=== PATIENT | female | born 1955 | race Two or more races ===

== ENCOUNTER 2020-01-24 06:29 | Outpatient (REF) | payer OTHER, SELFPAY ==
[2020-01-24 08:19] LABS: Alanine Aminotransferase 14 U/L (0-31); Albumin Level 4.1 g/dL (3.5-5.0); Alkaline Phosphatase 65 U/L (39-117); Anion Gap 12 (12-20); Aspartate Amino Transferase 15 U/L (5-31); Bilirubin Total 0.5 mg/dL (0.0-1.0); Blood Urea Nitrogen 12 mg/dL (9-16); Calcium 8.7 mg/dL (8.4-10.2); Carbon Dioxide 28 mmol/L (22-29); Chloride 106 mmol/L (96-108); Cholesterol 214 mg/dL; Estimated Glomerular Filt Rate > 60; Glucose Fasting 83 mg/dL (60-99); HDL Cholesterol 62 mg/dL; LDL Cholesterol Calculated 119 mg/dl; Potassium 4.2 mmol/l (3.3-5.1); Sodium 142 mmol/L (135-145); Total Protein 6.7 g/dL (6.5-8.0); Triglycerides 168 mg/dL
== END 2020-01-24 06:30 | disposition home or self-care (01) ==
LOC: HO.LAB 06:29
PROVIDERS: Visit Provider Internal Medicine
DX: Z82.49 Family history of ischemic heart disease and other diseases of the circulatory system (principal); M54.5 Low back pain
CPT/HCPCS: 80053; 80061; 99202

== ENCOUNTER → 2020-03-03 08:16 | Outpatient (BNVA) | payer SELFPAY | PROVIDERS: Visit Provider Internal Medicine Gastroenterology | DX: Z76.89 Persons encountering health services in other specified circumstances (principal) ==

== ENCOUNTER → 2020-04-12 13:37 | Outpatient (BNVA) | payer OTHER, SELFPAY | PROVIDERS: PCP Internal Medicine; Visit Provider Surgery | DX: K60.1 Chronic anal fissure (principal) | CPT/HCPCS: 99202 ==

== ENCOUNTER 2020-04-24 07:58 | Day surgery (SDC) | payer OTHER, SELFPAY ==
[2020-04-17 15:52] VITALS: BMI 25.6
--- NOTE | 2020-04-21 09:53 | HO.ANESPROP2 ---
Documented by User: Johana Edwards 04/21/20 09:54 HPI - Anesthesia Eval Consult details Narrative: 64yo F for Lateral Internal Sphincterotomy PMFSH Past Medical History Medical History Family history of hypertension GERD (gastroesophageal reflux disease) High cholesterol Low back pain Family History Family History Father Diabetes Hypertension Mother Hypertension Diabetes Lung cancer Skin cancer Paternal Aunt Stroke Surgical History Surgical History History of esophagogastroduodenoscopy History of hemorrhoidectomy History of removal of cyst History of surgery History of tubal ligation Social History Social History Alcohol intake: current Alcohol intake frequency: a few times a week Alcohol type: wine Smoking Status: Former smoker Tobacco Type: Cigarette Smoking Quit Date: 2000 Use of substances other than those prescribed or required for medical reasons: No Advance Directives: No Advance Directives Information Provided: No Advance Directives on File: No Recently lost weight without trying: No Meds Allergies Allergy/AdvReac Type Severity Reaction Status Date / Time oxycodone [From PERCOCET] Allergy Intermediate DIFF Verified 04/12/20 14:07 BREATHING acetaminophen [Percocet] Allergy Unknown anxiety, Verified 04/12/20 14:07 SOB Home Medications Medication Instructions Recorded Confirmed Type cromolyn 4 % eye drops 1 drp OPHTHALMIC (EYE) QID 04/12/20 04/17/20 History pantoprazole 1 tab PO DAILY 04/17/20 04/17/20 History Exam Exam Date and Time: April 21, 2020 0953 Height,Weight and Vital Signs: Height 4 ft 11 in Weight 57.606 kg Pertinent Lab Results Pertinent Lab Results: Laboratory Tests 01/24/20 06:44 Sodium 142 Potassium 4.2 Chloride 106 Carbon Dioxide 28 BUN 12 Creatinine 0.63 Assessment and Plan Assessment Anesthesia Assessment: Chart Reviewed Documented by User: Lesley Mosqueda 04/24/20 09:40 [facility] Past Medical History Medical History Family history of hypertension GERD (gastroesophageal reflux disease) High cholesterol Low back pain Family History Family History Father Diabetes Hypertension Mother Hypertension Diabetes Lung cancer Skin cancer Paternal Aunt Stroke Family history of problems with anesthesia: No Surgical History Surgical History History of esophagogastroduodenoscopy History of hemorrhoidectomy History of removal of cyst History of surgery History of tubal ligation History of Problems with Anesthesia: No Social History Social History Alcohol intake: current Alcohol intake frequency: a few times a week Alcohol type: wine Smoking Status: Former smoker Tobacco Type: Cigarette Smoking Quit Date: 2000 Use of substances other than those prescribed or required for medical reasons: No Advance Directives: No Advance Directives Information Provided: No Advance Directives on File: No Recently lost weight without trying: No Meds Allergies Allergy/AdvReac Type Severity Reaction Status Date / Time oxycodone [From PERCOCET] Allergy Intermediate DIFF Verified 04/12/20 14:07 BREATHING acetaminophen [Percocet] Allergy Unknown anxiety, Verified 04/12/20 14:07 SOB Home Medications Medication Instructions Recorded Confirmed Type cromolyn 4 % eye drops 1 drp OPHTHALMIC (EYE) QID 04/12/20 04/17/20 History pantoprazole 1 tab PO DAILY 04/17/20 04/17/20 History Exam Height,Weight and Vital Signs: Vital Signs Temp Pulse Resp BP Pulse Ox 04/24/20 08:33 98.0 F 93 16 139/95 H 99 Airway Mallampati Class: I TM Dist: >3cm Neck ROM: Full Loose/Missing/Broken Teeth: Yes (Extracted) Heart: RRR Lungs: CTAB Assessment and Plan Assessment Anesthesia Assessment: Anesthesia Plan Discussed and Chart Reviewed Final Anesthetic Review NPO: Yes ASA Class: II Final Preanesthetic Review: No Changes in Pt Med Stat, Meds/Allgs Chart Reviewed, Consent Obtained/Reviewed and Anes Risks/Benef Reviewed Patient Risk: Low Procedure Risk: Low Assessment/Block/Sedation in SS: Assess/Block/Sedation-SS Anesthetic Plan Anesthetic Plan: GA Disposition: Standard PACU
[2020-04-24] VITALS (7 sets, daily range): BP systolic 127–157; BP diastolic 69–95; PULSE 74–96; RESP 14–20; TEMP 36.3–36.7; O2SAT 94–99
[2020-04-24] MEDS: Lactated Ringers 1,000 ML 100 ML IVCONT (08:54)
--- NOTE | 2020-04-24 10:25 | PM.OP ---
Brief Operative Note Date of Service: 04/24/20 Pre-op diagnosis: Anal fissure Post-op diagnosis: same Procedure: Lateral internal sphincterotomy Implants: none Surgeon: Amauri Baiely MD Anesthesia: GLMA Estimated blood loss (mL): 5 Pathology: none sent Condition: stable Disposition: PACU
--- NOTE | 2020-04-24 10:25 | W.PM.OPN ---
Operative Note Operative Note Date of Service: 04/24/20 Narrative: Preoperative diagnosis: Anal fissure Postoperative diagnosis: Same Procedure: Lateral internal sphincterotomy Surgeon: Amauri Bailey MD Anesthesia: General LMA Indications for procedure: This 64-year-old female presenting with complaints of anal pain and bleeding for prolonged period of time found on examination to have evidence of an anal fissure with hypertrophy of the internal anal sphincter. She presents now for a lateral internal sphincterotomy. 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 No internal hemorrhoids were identified. Specimen: None Estimated blood loss: 5 mL Complications: None Procedure details: Patient was brought to the OR and placed in a supine position. After administering general anesthesia she was placed in a lithotomy position. The perianal skin was prepped with Betadine and draped in a sterile fashion. A surgical time-out was called and the consent confirmed. Patient received preoperative antibiotics and Venodyne boots were in place. Local anesthesia consisting of 0.25% Sensorcaine with epinephrine was then infiltrated around the perianal skin. Incision was then made on the left lateral anal wall. Hemostasis was assured using electrocautery. A hemostat was then used to dissect down to the internal anal sphincter. And brought up through the incision and divided using electrocautery. Additional fragment of the sphincter was brought up again through the incision and divided. Hemostasis again assured using the cautery and light pressure the wounds were then dressed with Surgicel followed by an anal packing consisting of Xeroform right around a old 4 x 4 gauze. Followed by an ABD pad. Patient tolerated the procedure well. Sponge, instrument, and needle counts reported as correct. Patient was transferred to PACU in stable condition.
--- NOTE | 2020-04-24 11:35 | HO.POSTANES ---
Post Anesthesia Evaluation Post Anesthesia Evaluation Vital Signs: Vital Signs Temp Pulse Resp BP Pulse Ox 04/24/20 10:40 97.3 F 83 16 129/69 95 04/24/20 10:35 85 16 137/70 94 04/24/20 10:30 96 16 143/78 H 94 04/24/20 10:25 97.3 F 91 14 157/84 H 97 04/24/20 08:33 98.0 F 93 16 139/95 H 99 Anesthesia: General LMA Mental Status: Awake Pain Control: Satisfactory Nausea/Vomiting: None Hydration: Adequate Anesthesia-Related Issues: No Anes. Related Issues
== END 2020-04-24 11:49 | disposition home or self-care (01) ==
PROVIDERS: PCP Internal Medicine; Visit Provider Surgery
PROC: (CPT 46200; principal; 2020-04-24 09:50)
DX: K60.1 Chronic anal fissure (principal); K21.9 Gastro-esophageal reflux disease without esophagitis; E78.00 Pure hypercholesterolemia, unspecified; Z87.891 Personal history of nicotine dependence; Z79.899 Other long term (current) drug therapy; Z88.8 Allergy status to other drugs, medicaments and biological substances
CPT/HCPCS: 46200; J1100; J2250; J2405; J3010

== ENCOUNTER → 2020-05-04 14:29 | Outpatient (BNVA) | payer OTHER, SELFPAY | PROVIDERS: PCP Internal Medicine; Visit Provider Surgery | DX: K60.1 Chronic anal fissure (principal) | CPT/HCPCS: 99212 ==

== ENCOUNTER 2020-05-21 16:09 | Emergency (ER) | payer OTHER, SELFPAY ==
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
[2020-05-21 16:17] VITALS: BP 152/86; PULSE 72; RESP 16; TEMP 36.7; O2SAT 99; BMI 27.6
[2020-05-21] MEDS: Ibuprofen 600 MG TABLET PO (18:27)
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
== END 2020-05-21 19:25 | disposition home or self-care (01) ==
PROVIDERS: Emergency Provider Internal Medicine; PCP Internal Medicine
DX: S19.9XXA Unspecified injury of neck, initial encounter (principal); M54.2 Cervicalgia; M25.511 Pain in right shoulder; V43.62XA Car passenger injured in collision with other type car in traffic accident, initial encounter; Y93.9 Activity, unspecified; Y92.410 Unspecified street and highway as the place of occurrence of the external cause; Y99.9 Unspecified external cause status; Z87.891 Personal history of nicotine dependence; Z79.899 Other long term (current) drug therapy
CPT/HCPCS: 72125; 73030; 99284

== ENCOUNTER → 2020-07-07 09:19 | Outpatient (BNVA) | payer OTHER, SELFPAY | PROVIDERS: PCP Internal Medicine; Visit Provider Internal Medicine Gastroenterology ==

== ENCOUNTER 2020-07-13 06:15 | Outpatient (REF) | payer OTHER, SELFPAY ==
[2020-07-13 07:31] LABS: Hematocrit 39.4 % (37-47); Hemoglobin 12.7 g/dl (12.0-16.0); Mean Corpuscular HGB Conc 32.2 g/dl (31.0-35.0); Mean Corpuscular Hemoglobin 28.9 pg (27.0-33.0); Mean Corpuscular Volume 89.7 fL (80-98); Mean Platelet Volume 9.3 fL (9.4-12.3); Platelet Count 310 X10*3/uL (160-400); Red Blood Count 4.39 X10*6/uL (4.20-5.50); Red Cell Distribution Width 14.6 % (11.0-16.0); White Blood Count 5.2 X10*3/uL (4.8-10.8)
[2020-07-13 07:39] LABS: Alanine Aminotransferase 17 U/L (0-31); Albumin Level 4.3 g/dL (3.5-5.0); Alkaline Phosphatase 57 U/L (39-117); Anion Gap 13 (12-20); Aspartate Amino Transferase 19 U/L (5-31); Bilirubin Direct 0.2 mg/dL (0.0-0.5); Bilirubin Total 0.6 mg/dL (0.0-1.0); Blood Urea Nitrogen 11 mg/dL (9-16); Calcium 9.5 mg/dL (8.4-10.2); Carbon Dioxide 27 mmol/L (22-29); Chloride 107 mmol/L (96-108); Cholesterol 225 mg/dL; Estimated Glomerular Filt Rate > 60; Glucose Random 86 mg/dL (60-115); HDL Cholesterol 70 mg/dL; LDL Cholesterol Calculated 144 mg/dl; Potassium 4.4 mmol/L (3.3-5.1); Sodium 143 mmol/L (135-145); Total Protein 7.1 g/dL (6.5-8.0); Triglycerides 56 mg/dL
[2020-07-13 08:04] LABS: Thyroid Stimulating Hormone 1.24 uIU/mL (0.32-4.0)
[2020-07-17 14:57] LABS: Vitamin D 25-OH, D2 <4 ng/mL; Vitamin D 25-OH, D3 24 ng/mL; Vitamin D 25-OH, Total 24 ng/mL (30-100)
== END 2020-07-13 06:16 | disposition home or self-care (01) ==
LOC: HO.LAB 06:15
PROVIDERS: PCP Internal Medicine; Visit Provider Internal Medicine
DX: L73.9 Follicular disorder, unspecified (principal); L65.9 Nonscarring hair loss, unspecified
CPT/HCPCS: 36415; 80048; 80061; 80076; 82306; 84443; 85027

== ENCOUNTER 2020-07-17 12:52 | Outpatient (REF) | payer OTHER, SELFPAY ==
[2020-07-17 14:03] LABS: COVID-19 Test Negative (Negative); IDNOW Serial# 55D5AD1C
== END 2020-07-17 12:53 | disposition home or self-care (01) ==
LOC: HO.LAB 12:52
PROVIDERS: Visit Provider Internal Medicine
DX: Z20.822 Contact with and (suspected) exposure to COVID-19 (principal)
CPT/HCPCS: 36415; 87635; C9803

== ENCOUNTER 2020-07-26 08:50 | Outpatient (REF) | payer OTHER, SELFPAY ==
--- NOTE | 2020-07-26 08:56 | ECG_ITS ---
Test Reason : PREPROC EXAM Blood Pressure : / mmHG Vent. Rate : 067 BPM Atrial Rate : 067 BPM P-R Int : 142 ms QRS Dur : 082 ms QT Int : 428 ms P-R-T Axes : 015 029 044 degrees QTc Int : 452 ms Sinus rhythm with Premature supraventricular complexes Otherwise normal ECG When compared with ECG of 11-JUN-2011 15:42, Premature supraventricular complexes are now Present T wave inversion no longer evident in Anterior leads Referred By: Patricio Qiu Electronically Signed By:ANUM LANIER
[2020-07-26 10:52] LABS: Glucose Urine UA NEG (NEG); Leukocyte Esterase Urine 1+ (NEG); Nitrite Urine NEG (NEG); Urine Blood TRACE (NEG); Urine Ketones NEG (NEG); Urine Protein NEG (NEG-TRACE)
[2020-07-26 10:54] LABS: Appearance Urine CLEAR; Color Urine YELLOW
[2020-07-26 10:59] LABS: Anion Gap 12 (12-20); Blood Urea Nitrogen 11 mg/dL (9-16); Calcium 9.7 mg/dL (8.4-10.2); Carbon Dioxide 28 mmol/L (22-29); Chloride 107 mmol/L (96-108); Estimated Glomerular Filt Rate > 60; Glucose Random 78 mg/dL (60-115); Potassium 4.3 mmol/L (3.3-5.1); Sodium 143 mmol/L (135-145)
[2020-07-26 11:00] LABS: Hematocrit 39.7 % (37-47); Hemoglobin 12.9 g/dl (12.0-16.0); Mean Corpuscular HGB Conc 32.5 g/dl (31.0-35.0); Mean Corpuscular Volume 89.2 fL (80-98); Mean Platelet Volume 9.6 fL (9.4-12.3); Platelet Count 316 X10*3/uL (160-400); Red Blood Count 4.45 X10*6/uL (4.20-5.50); Red Cell Distribution Width 14.3 % (11.0-16.0); White Blood Count 5.6 X10*3/uL (4.8-10.8)
[2020-07-26 11:03] LABS: INTERNATIONAL NORM RATIO 1.1 (0.9-1.1); Prothrombin Time 12.6 SEC (10.8-13.0)
[2020-07-26 11:06] LABS: Squamous Epithelial Cell Urine 1+ /LPF
[2020-07-26 11:23] LABS: Thyroid Stimulating Hormone 1.56 uIU/mL (0.32-4.0)
== END 2020-07-26 08:51 | disposition home or self-care (01) ==
LOC: HO.LAB 08:50
PROVIDERS: PCP Internal Medicine; Visit Provider Internal Medicine
DX: Z01.810 Encounter for preprocedural cardiovascular examination (principal); E66.9 Obesity, unspecified
CPT/HCPCS: 36415; 80048; 81001; 84443; 85027; 85610; 93005

== ENCOUNTER 2020-08-01 14:46 | Outpatient (REF) | payer OTHER, SELFPAY ==
--- NOTE | ~2020-08-01 | XR_ITS ---
EXAMINATION: XR CHEST CLINICAL INFORMATION: Chest 2 views. COMPARISON: None TECHNIQUE: 2 views of the chest were obtained. FINDINGS: The lungs are well-expanded and clear. The heart size and pulmonary vascularity is normal. There is right superior paramediastinal soft tissue density likely an ectatic brachiocephalic artery. It is unchanged to previous exam 04/21/2019 No gross bony abnormality seen. XR/XR chest 2V IMPRESSION: No acute cardiopulmonary process seen.
== END 2020-08-01 14:47 | disposition home or self-care (01) ==
LOC: HO.XRAY 14:46
PROVIDERS: PCP Internal Medicine; Visit Provider Internal Medicine
DX: Z01.810 Encounter for preprocedural cardiovascular examination (principal)
CPT/HCPCS: 71046

== ENCOUNTER 2020-08-02 08:04 | Outpatient (REF) | payer OTHER, SELFPAY ==
--- NOTE | ~2020-08-02 | MM_ITS ---
EXAMINATION: MM SCREENING DIGITAL BREAST TOMOSYNTHESIS, BILATERAL CLINICAL INFORMATION: Screening. Asymptomatic. The lifetime risk of breast cancer based on the Tyrer-Cuzick Model is 4%. COMPARISON: Mammography: 01/16/2018, 01/17/2017, 05/01/2016, 04/12/2016 TECHNIQUE: Digital breast tomosynthesis is performed in both the craniocaudal and mediolateral oblique views along with computer-aided detection (CAD). Synthesized 2D images are generated from the tomosynthesis. FINDINGS: There are scattered areas of fibroglandular density (ACR BI-RADS breast composition Category b). The parenchymal pattern is similar to prior exams. There is no developing density or interval mass or architectural abnormality. Biopsy clip marker again seen 12:00 right breast. There are bilateral calcifications again seen greater in number on right. The number and distribution are similar to prior studies and are considered benign. There are other scattered coarse benign calcifications as well. The axilla and skin contours are unremarkable. MM/MM tomosynthesis screening BI IMPRESSION: There are no significant changes from prior study. ASSESSMENT: BI-RADS 2: Benign RECOMMENDATION: Routine annual mammography screening. This patient's information was entered into a reminder system with a target due date for their next mammogram.
== END 2020-08-02 08:05 | disposition home or self-care (01) ==
LOC: HO.MAMMO 08:04
PROVIDERS: PCP Internal Medicine; Visit Provider Internal Medicine
DX: Z12.31 Encounter for screening mammogram for malignant neoplasm of breast (principal)
CPT/HCPCS: 77063; 77067

== ENCOUNTER 2020-08-03 14:29 | Outpatient (REF) | payer OTHER, SELFPAY | END 2020-08-03 14:30 | disposition home or self-care (01) | LOC: HO.LAB 14:29 | PROVIDERS: Visit Provider Internal Medicine | DX: Z20.822 Contact with and (suspected) exposure to COVID-19 (principal) | CPT/HCPCS: C9803; U0003; U0005 ==

== ENCOUNTER 2020-12-19 06:35 | Outpatient (REF) | payer OTHER, SELFPAY ==
--- NOTE | 2020-12-19 06:57 | ECG_ITS ---
Test Reason : preop Blood Pressure : / mmHG Vent. Rate : 055 BPM Atrial Rate : 055 BPM P-R Int : 148 ms QRS Dur : 086 ms QT Int : 428 ms P-R-T Axes : 044 044 049 degrees QTc Int : 409 ms Sinus bradycardia Nonspecific ST abnormality Abnormal ECG When compared with ECG of 26-JUL-2020 09:03, Premature supraventricular complexes are no longer Present Referred By: Antonette Stanley Electronically Signed By:MOE STAUFFER
[2020-12-19 07:02] LABS: MANUAL DIFF FLAG NO
[2020-12-19 07:14] LABS: Basophils Absolute Auto 0.1 X10*3/uL (0.0-0.2); Basophils Percent Auto 1.5 % (0-2); Eosinophils Absolute Auto 0.2 X10*3/uL (0.0-0.4); Eosinophils Percent Auto 3.6 % (0-4); Hemoglobin 12.6 g/dl (12.0-16.0); Imm Gran Abs Auto 0.01 X10*3/uL (0.00-0.03); Imm Gran Pct Auto 0.2 % (0.0-0.4); Lymphocytes Absolute Auto 2.7 X10*3/uL (1.2-4.9); Lymphocytes Percent Auto 45.1 % (20-40); Mean Corpuscular HGB Conc 32.3 g/dl (31.0-35.0); Mean Corpuscular Hemoglobin 28.4 pg (27.0-33.0); Mean Corpuscular Volume 87.8 fL (80-98); Mean Platelet Volume 9.1 fL (9.4-12.3); Monocytes Absolute Auto 0.5 X10*3/uL (0.1-1.2); Monocytes Percent Auto 7.7 % (2-11); Neutrophils Absolute Auto 2.6 X10*3/uL (2.0-8.3); Neutrophils Percent Auto 41.9 % (45-73); Platelet Count 294 X10*3/uL (160-400); Red Blood Count 4.44 X10*6/uL (4.20-5.50); Red Cell Distribution Width 15.2 % (11.0-16.0); White Blood Count 6.1 X10*3/uL (4.8-10.8)
[2020-12-19 07:38] LABS: Alanine Aminotransferase 16 U/L (0-31); Albumin Level 4.3 g/dL (3.5-5.0); Alkaline Phosphatase 62 U/L (39-117); Anion Gap 11 (12-20); Aspartate Amino Transferase 19 U/L (5-31); Bilirubin Total 0.6 mg/dL (0.0-1.0); Blood Urea Nitrogen 11 mg/dL (9-16); Calcium 9.5 mg/dL (8.4-10.2); Carbon Dioxide 27 mmol/L (22-29); Chloride 110 mmol/L (96-108); Cholesterol 244 mg/dL; Estimated Glomerular Filt Rate > 60; Glucose Fasting 95 mg/dL (60-99); HDL Cholesterol 69 mg/dL; LDL Cholesterol Calculated 149 mg/dl; Sodium 144 mmol/L (135-145); Triglycerides 130 mg/dL
== END 2020-12-19 06:36 | disposition home or self-care (01) ==
LOC: HO.LAB 06:35
PROVIDERS: PCP Internal Medicine; Visit Provider Internal Medicine
DX: Z01.810 Encounter for preprocedural cardiovascular examination (principal); E66.9 Obesity, unspecified; D64.9 Anemia, unspecified; E78.5 Hyperlipidemia, unspecified
CPT/HCPCS: 36415; 80053; 80061; 85025; 93005

== ENCOUNTER 2021-01-11 14:37 | Outpatient (REF) | payer OTHER, SELFPAY ==
[2021-01-12 04:16] LABS: CT PCR NOT DETECTED (Not Detect.); NG PCR NOT DETECTED (Not Detect.)
[2021-01-12 08:30] LABS: BV Int Neg Control Negative (Negative); BV Int Pos Control Positive (Positive)
[2021-01-16 09:36] LABS: HPV mRNA E6/E7 rflx Not Detected (Not Detected)
== END 2021-01-11 14:38 | disposition home or self-care (01) ==
LOC: HO.LAB 14:37
PROVIDERS: PCP Internal Medicine; Visit Provider Advanced Practice Midwife
DX: Z01.411 Encounter for gynecological examination (general) (routine) with abnormal findings (principal); Z11.51 Encounter for screening for human papillomavirus (HPV); Z11.3 Encounter for screening for infections with a predominantly sexual mode of transmission; R10.2 Pelvic and perineal pain
CPT/HCPCS: 87480; 87491; 87510; 87591; 87624; 87660; 88142; 99212

== ENCOUNTER 2021-01-12 15:18 | Outpatient (REF) | payer OTHER, SELFPAY ==
--- NOTE | ~2021-01-12 | XR_ITS ---
EXAMINATION: XR LUMBOSACRAL SPINE CLINICAL INFORMATION: Lower back pain COMPARISON: 09/23/2018 TECHNIQUE: Three views of the lumbosacral spine. FINDINGS: Slight scoliotic curvature. No acute fracture or subluxation. Grade 1 anterolisthesis of L4 on L5 which is slightly increased from prior. Vertebral body heights maintained. Mild disc space narrowing of L4-L5. Small multilevel endplate osteophytes. Mild facet arthropathy throughout. The sacroiliac joints are symmetric. The visualized sacrum is intact. XR/XR lumbar spine 2-3V IMPRESSION: Mild multilevel degenerative changes throughout the lumbar spine which are progressed from prior.
[2021-01-12 16:11] LABS: Appearance Urine CLEAR; Color Urine YELLOW; Glucose Urine UA NEG (NEG); Leukocyte Esterase Urine NEG (NEG); Nitrite Urine NEG (NEG); Specific Gravity - Urine <= 1.005 (1.005-1.025); Urine Blood TRACE (NEG); Urine Ketones NEG (NEG); Urine Protein NEG (NEG-TRACE)
[2021-01-12 16:21] LABS: Squamous Epithelial Cell Urine TRACE /LPF; WBC Urine 0 /HPF (0-4)
== END 2021-01-12 15:19 | disposition home or self-care (01) ==
LOC: HO.XRAY 15:18
PROVIDERS: Absent Provider Internal Medicine; PCP Internal Medicine; Visit Provider Physician Assistant
DX: Z01.810 Encounter for preprocedural cardiovascular examination (principal); M54.50 Low back pain, unspecified; E66.9 Obesity, unspecified
CPT/HCPCS: 72100; 81001

== ENCOUNTER → 2021-01-22 14:27 | Outpatient (BNVA) | payer OTHER, SELFPAY | PROVIDERS: PCP Internal Medicine; Referring Provider Internal Medicine; Visit Provider Internal Medicine Cardiovascular Disease | DX: Z01.810 Encounter for preprocedural cardiovascular examination (principal); I10 Essential (primary) hypertension; R94.31 Abnormal electrocardiogram [ECG] [EKG] | CPT/HCPCS: 99202 ==

== ENCOUNTER 2021-01-31 15:01 | Outpatient (REF) | payer OTHER, SELFPAY ==
--- NOTE | ~2021-01-31 | US_ITS ---
EXAMINATION: US PELVIS CLINICAL INFORMATION: Pelvic and perineal pain. COMPARISON: None TECHNIQUE: Ultrasound of the pelvis is performed using both transabdominal and transvaginal transducers along with Doppler. Transvaginal imaging is performed due to inadequate visualization transabdominally. FINDINGS: Uterus: The uterus is anteverted and measures 9.4 x 2.6 x 3.7 cm. The double wall endometrial thickness is 0.2 mm. The uterus is smooth in contour and has normal myometrial echogenicity. Solitary 0.6 x 0.4 x 0.6 cm hypoechoic echogenicity is noted within the posterior wall of the body of the uterus, consistent with a small intramural fibroid. Adnexa: The right ovary visualized. There is normal color flow to the adnexa. There is no ovarian torsion. There is no pelvic ascites or fluid collection. Right ovary measures 1.4 x 0.9 x 2.3 cm with a volume of 1.5 mL. Left ovary is not visualized. There is no left-sided adnexal mass present. US/US pelvic and transvaginal IMPRESSION: 1. Sonographically unremarkable uterus except for a subcentimeter intramural fibroid seen within the posterior wall of the body of the uterus. 2. Sonographically unremarkable right ovary. 3. Nonvisualized left ovary without any left-sided adnexal mass.
== END 2021-01-31 15:02 | disposition home or self-care (01) ==
LOC: HO.US 15:01
PROVIDERS: PCP Internal Medicine; Visit Provider Advanced Practice Midwife
DX: R10.2 Pelvic and perineal pain (principal)
CPT/HCPCS: 76830; 76856

== ENCOUNTER → 2021-02-07 07:25 | Outpatient (REF) | payer OTHER, SELFPAY ==
--- NOTE | 2021-02-07 07:27 | CA_ITS ---
INDICATIONS: Essential primary hypertension HT: 4'11 WT: 123 BSA: BP: 130/80 M-MODE/2D MEASUREMENTS: LVd: 3.96 LVs: 2.23 IVSd 1.02 IVSs: LVPWd: 1.03 ASC Aorta: 2.7 RVd: 2.61 AO root: 3.0 LA: 3.9 AV Cusp: LVOT 2.0 EF% 58.4 TAPSE: 2.58 OTHER: Effusion: Thrombus: Wall Motion: RVSP: 26 mmHg Mitral E/A: 91.7/79.7 = 1.2 E Med. 8.05 E Lat. 10.8 AV Cusps Trileaflet DOPPLER MEASUREMENTS: AORTIC PPG 6 mmHG MFG 3 mmHg Velocity 125 m/s Valve Area 2.55 cm2 TRICUSPID PPG 23 mmHg Velocity 238 m/s MITRAL PPG 3 mmHg Velocity 91.7 m/s PHT 63 RA Vol. 14.9 IVC: 1.56 LA Vol. 34.1 RVS 12.8 Study quality: Good Rhythm: Normal sinus rhythm Findings: Left ventricle: Left ventricle is of normal size with normal wall thickness and normal LV systolic function. Overall LV ejection fraction is 60-65%. There are no regional wall motion abnormalities noted. LV diastolic function appears to be normal. Calculated peak global endocardial longitudinal strain is-20.9% which is within normal limits Atria: Both left and right atrium are of normal size. There is mild lipomatous hypertrophy of the interatrial septum. Interatrial septum is mildly mobile. There is no evidence of PFO Right ventricle: Right ventricle is of normal size with normal systolic function Cardiac valves: Aortic valve is trileaflet with normal mobility. There is no evidence of significant aortic valve regurgitation aortic stenosis Mitral valve is of normal morphology with normal mobility. There is no evidence of mitral valve prolapse. There is trace mitral regurgitation noted. There is no evidence of mitral stenosis Tricuspid valve is of normal morphology with trace tricuspid regurgitation. Calculated RV systolic pressures are within normal limits Pulmonic valve is not very well visualized. There is trace pulmonary regurgitation noted Great vessels Ascending aorta: This is of normal size. There is no significant plaquing noted IVC is of normal size with normal collapsibility suggestive of normal right atrial pressures Pericardium: This is within normal limits Conclusion: 1. Normal LV systolic and diastolic function 2. Normal cardiac valvular morphology and Doppler is 3. Normal RV systolic pressure 4. No pericardial effusion MTDD
== END ==
LOC: HO.CARD 07:25
PROVIDERS: Visit Provider Internal Medicine Cardiovascular Disease
DX: Z01.810 Encounter for preprocedural cardiovascular examination (principal)
CPT/HCPCS: 93306

== ENCOUNTER → 2021-02-12 15:54 | Outpatient (BNVA) | payer OTHER, SELFPAY | PROVIDERS: PCP Internal Medicine; Visit Provider Advanced Practice Midwife ==

== ENCOUNTER 2021-02-14 11:40 | Outpatient (REF) | payer OTHER, SELFPAY ==
--- NOTE | ~2021-02-14 | US_ITS ---
EXAMINATION: ULTRASOUND EXTREMITY NONVASCULAR. CLINICAL INFORMATION: Localized swelling, mass and lump. COMPARISON: None TECHNIQUE: Limited ultrasound imaging through bilateral paraspinal lumbar area was performed FINDINGS: Imaging to the posterior spinal lumbar area reveals mild thickening left paraspinal musculature with mild haziness representing myositis or contusion. No acute echogenic mass seen. There is no fluid collection. US/US extremity nonvascular IMPRESSION: Slightly asymmetric left paraspinal musculature which appears slightly thickened and hazy. Question edema from myositis or contusion. There is no fluid collection or mass seen.
== END 2021-02-14 11:41 | disposition home or self-care (01) ==
LOC: HO.HMGCX 11:40
PROVIDERS: PCP Internal Medicine; Visit Provider Nurse Practitioner Family
DX: R22.2 Localized swelling, mass and lump, trunk (principal)
CPT/HCPCS: 76882

== ENCOUNTER 2021-02-20 15:14 | Outpatient (REF) | payer OTHER, SELFPAY ==
[2021-02-20 16:30] LABS: C Reactive Protein 0.17 mg/dL (< or = 0.50)
[2021-02-20 16:44] LABS: Erythrocyte Sedimentation Rate 14 MM/HR (0-20)
[2021-02-22 14:36] LABS: Anti Nuclear Antibody Screen NEGATIVE (NEGATIVE)
== END 2021-02-20 15:15 | disposition home or self-care (01) ==
LOC: HO.LAB 15:14
PROVIDERS: Visit Provider Nurse Practitioner Family
DX: R22.2 Localized swelling, mass and lump, trunk (principal)
CPT/HCPCS: 36415; 82550; 85652; 86038; 86039; 86140

== ENCOUNTER 2021-03-30 10:20 | Outpatient (REF) | payer OTHER, SELFPAY ==
[2021-03-30 11:30] LABS: Binax Internal Control QC Valid; Binax Now Covid-19 Ag Negative (Negative)
== END 2021-03-30 10:21 | disposition home or self-care (01) ==
LOC: HO.LAB 10:20
PROVIDERS: Visit Provider Internal Medicine
DX: Z20.822 Contact with and (suspected) exposure to COVID-19 (principal)
CPT/HCPCS: 36415; C9803

== ENCOUNTER 2021-04-03 10:47 | Outpatient (REF) | payer OTHER, SELFPAY ==
[2021-04-03 13:19] LABS: Binax Internal Control QC Valid; Binax Now Covid-19 Ag Negative (Negative)
== END 2021-04-03 10:48 | disposition home or self-care (01) ==
LOC: HO.LAB 10:47
PROVIDERS: Visit Provider Internal Medicine
DX: Z20.822 Contact with and (suspected) exposure to COVID-19 (principal)
CPT/HCPCS: C9803

== ENCOUNTER 2021-04-05 13:37 | Outpatient (REF) | payer OTHER, SELFPAY ==
[2021-04-11 05:11] LABS: HPV mRNA E6/E7 rflx Not Detected (Not Detected)
== END 2021-04-05 13:38 | disposition home or self-care (01) ==
LOC: HO.LAB 13:37
PROVIDERS: PCP Internal Medicine; Visit Provider Advanced Practice Midwife
DX: Z11.51 Encounter for screening for human papillomavirus (HPV) (principal); R87.615 Unsatisfactory cytologic smear of cervix; Z20.822 Contact with and (suspected) exposure to COVID-19; Z71.2 Person consulting for explanation of examination or test findings
CPT/HCPCS: 87624; 88142; 99212

== ENCOUNTER 2021-05-01 09:24 | Outpatient (REF) | payer OTHER, SELFPAY ==
[2021-05-01 10:56] LABS: Alanine Aminotransferase 16 U/L (0-31); Albumin Level 4.2 g/dL (3.5-5.0); Alkaline Phosphatase 59 U/L (39-117); Anion Gap 12 (12-20); Aspartate Amino Transferase 17 U/L (5-31); Bilirubin Total 0.6 mg/dL (0.0-1.0); Blood Urea Nitrogen 15 mg/dL (9-16); Calcium 9.7 mg/dL (8.4-10.2); Carbon Dioxide 30 mmol/L (22-29); Chloride 106 mmol/L (96-108); Cholesterol 241 mg/dL; Estimated Glomerular Filt Rate > 60; Glucose Fasting 95 mg/dL (60-99); HDL Cholesterol 64 mg/dL; LDL Cholesterol Calculated 153 mg/dl; Potassium 4.6 mmol/L (3.3-5.1); Sodium 143 mmol/L (135-145); Total Protein 7.2 g/dL (6.5-8.0); Triglycerides 122 mg/dL
[2021-05-06 13:56] LABS: Vitamin D 25-OH, D2 <4 ng/mL; Vitamin D 25-OH, D3 25 ng/mL; Vitamin D 25-OH, Total 25 ng/mL (30-100)
== END 2021-05-01 09:25 | disposition home or self-care (01) ==
LOC: HO.LAB 09:24
PROVIDERS: PCP Internal Medicine; Visit Provider Internal Medicine
DX: E78.5 Hyperlipidemia, unspecified (principal); E55.9 Vitamin D deficiency, unspecified; I10 Essential (primary) hypertension
CPT/HCPCS: 36415; 80053; 80061; 82306

== ENCOUNTER → 2021-05-31 14:07 | Outpatient (BNVA) | payer OTHER, SELFPAY | PROVIDERS: PCP Internal Medicine; Referring Provider Internal Medicine; Visit Provider Internal Medicine Cardiovascular Disease | DX: I10 Essential (primary) hypertension (principal); Z79.899 Other long term (current) drug therapy | CPT/HCPCS: 99212 ==

== ENCOUNTER → 2021-07-19 14:29 | Outpatient (BNVA) | payer OTHER, SELFPAY | PROVIDERS: PCP Internal Medicine; Referring Provider Internal Medicine; Visit Provider Nurse Practitioner Family | DX: I10 Essential (primary) hypertension (principal); E78.00 Pure hypercholesterolemia, unspecified; Z79.899 Other long term (current) drug therapy | CPT/HCPCS: 99212 ==

== ENCOUNTER 2021-09-01 07:46 | Outpatient (REF) | payer OTHER, SELFPAY ==
[2021-09-01 08:48] LABS: Anion Gap 12 (12-20); Blood Urea Nitrogen 11 mg/dL (9-16); Calcium 9.4 mg/dL (8.4-10.2); Carbon Dioxide 28 mmol/L (22-29); Chloride 105 mmol/L (96-108); Cholesterol 162 mg/dL; Estimated Glomerular Filt Rate > 60; Glucose Random 93 mg/dL (60-115); HDL Cholesterol 75 mg/dL; LDL Cholesterol Calculated 78 mg/dl; Potassium 4.1 mmol/L (3.3-5.1); Sodium 141 mmol/L (135-145); Triglycerides 45 mg/dL
== END 2021-09-01 07:47 | disposition home or self-care (01) ==
LOC: HO.LAB 07:46
PROVIDERS: PCP Internal Medicine; Visit Provider Nurse Practitioner Family
DX: E78.00 Pure hypercholesterolemia, unspecified (principal)
CPT/HCPCS: 36415; 80048; 80061

== ENCOUNTER → 2021-09-07 15:08 | Outpatient (BNVA) | payer OTHER, SELFPAY | PROVIDERS: PCP Internal Medicine; Visit Provider Nurse Practitioner Family | DX: Z01.89 Encounter for other specified special examinations (principal) | CPT/HCPCS: 99211 ==

== ENCOUNTER 2021-09-29 06:58 | Outpatient (REF) | payer OTHER, SELFPAY ==
[2021-09-29 07:33] LABS: Hematocrit 38.5 % (37.0-47.0); Hemoglobin 12.8 g/dl (12.0-16.0); Mean Corpuscular HGB Conc 33.2 g/dl (31.0-35.0); Mean Corpuscular Hemoglobin 28.6 pg (27.0-33.0); Mean Corpuscular Volume 86.1 fL (80.0-98.0); Mean Platelet Volume 8.8 fL (9.4-12.3); Platelet Count 308 X10*3/uL (160-400); Red Blood Count 4.47 X10*6/uL (4.20-5.50); Red Cell Distribution Width 14.5 % (11.0-16.0); White Blood Count 5.6 X10*3/uL (4.8-10.8)
[2021-09-29 07:57] LABS: Anion Gap 13 (12-20); Blood Urea Nitrogen 8 mg/dL (9-16); Calcium 9.4 mg/dL (8.4-10.2); Carbon Dioxide 26 mmol/L (22-29); Chloride 103 mmol/L (96-108); Estimated Glomerular Filt Rate > 60; Glucose Random 91 mg/dL (60-115); Potassium 3.4 mmol/L (3.3-5.1); Sodium 139 mmol/L (135-145)
== END 2021-09-29 06:59 | disposition home or self-care (01) ==
LOC: HO.LAB 06:58
PROVIDERS: PCP Internal Medicine; Visit Provider Nurse Practitioner Family
DX: Z01.818 Encounter for other preprocedural examination (principal)
CPT/HCPCS: 36415; 80048; 84443; 85027; 85610

== ENCOUNTER → 2021-10-01 07:06 | Outpatient (REF) | payer OTHER, SELFPAY ==
--- NOTE | 2021-10-01 07:28 | ECG_ITS ---
Test Reason : CP Blood Pressure : / mmHG Vent. Rate : 069 BPM Atrial Rate : 069 BPM P-R Int : 148 ms QRS Dur : 078 ms QT Int : 410 ms P-R-T Axes : 053 047 050 degrees QTc Int : 439 ms Sinus rhythm with Premature atrial complexes Nonspecific ST abnormality Abnormal ECG When compared with ECG of 19-DEC-2020 07:04, Premature atrial complexes are now Present Nonspecific T wave abnormality no longer evident in Anterior leads Referred By: Nai Wilburn Electronically Signed By:BLU DAVIS MD
== END ==
LOC: HO.CARD 07:06
PROVIDERS: PCP Internal Medicine; Visit Provider Nurse Practitioner Family
DX: Z01.818 Encounter for other preprocedural examination (principal)
CPT/HCPCS: 93005

== ENCOUNTER → 2021-10-17 10:15 | Outpatient (BNVA) | payer OTHER, SELFPAY | PROVIDERS: PCP Internal Medicine; Visit Provider Internal Medicine Cardiovascular Disease | DX: I10 Essential (primary) hypertension (principal) | CPT/HCPCS: 93005; 99212 ==

== ENCOUNTER → 2021-11-14 09:52 | Outpatient (BNVA) | payer OTHER, SELFPAY | PROVIDERS: PCP Internal Medicine; Visit Provider Internal Medicine Rheumatology | DX: M47.816 Spondylosis without myelopathy or radiculopathy, lumbar region (principal); M54.50 Low back pain, unspecified; R19.00 Intra-abdominal and pelvic swelling, mass and lump, unspecified site | CPT/HCPCS: 99202 ==

== ENCOUNTER → 2021-12-06 15:05 | Outpatient (BNVA) | payer OTHER, SELFPAY | PROVIDERS: PCP Internal Medicine; Referring Provider Internal Medicine; Visit Provider Surgery | DX: E66.9 Obesity, unspecified (principal); Z68.25 Body mass index [BMI] 25.0-25.9, adult | CPT/HCPCS: 99202 ==

== ENCOUNTER 2022-02-20 14:15 | Outpatient (REF) | payer OTHER, MEDICARE, SELFPAY ==
--- NOTE | ~2022-02-20 | MM_ITS ---
EXAMINATION: BONE DENSITOMETRY CLINICAL INDICATION: Asymptomatic menopausal state. COMPARISON: None (current study represents initial baseline exam). TECHNIQUE: Using a Hub[employer] DXA System (software version: 13.1) manufactured by [employer], dual-energy x-ray absorptiometry was performed of the lumbar spine and left hip. The images are of good technical quality. Summary results are attached. FINDINGS: AP SPINE L1-L4: BMD 0.982 g/cm2, Z-score 0.2, T-score -1.7, osteopenia. LEFT FEMUR, NECK: BMD 0.804 g/cm2, Z-score 0.0, T-score -1.7, osteopenia. LEFT FEMUR, TOTAL: BMD 0.928 g/cm2, Z-score 0.8, T-score -0.6, normal. IDENTIFIED RISK FACTORS: Menopause. HISTORY OF FRACTURE: Foot. MEDICATIONS: Vitamin D. MM/XR DEXA axial skeleton IMPRESSION: 1. DIAGNOSIS: Osteopenia based on the lowest T-score value of -1.7 in the femoral neck and lumbar spine applying World Health Organization criteria. 2. 10-YEAR FRACTURE RISK PREDICTION, FRAX: Major osteoporotic fracture (clinical spine, forearm, hip or shoulder) 5.5%. Hip fracture 0.7%. 3. Treatment Recommendations: NOF guidelines recommend consideration for treatment in postmenopausal women and men age 50 and older presenting with the following: -A hip or vertebral (clinical or morphometric) fracture. -T-score less than or equal to -2.5 at the femoral neck or spine after appropriate evaluation to exclude secondary causes. -Low bone mass at the hip or spine and a 10-year fracture probability by FRAX of greater than or equal to 3% for hip fracture or greater than or equal to 20% for major osteoporotic fracture based on the [place] adapted WHO algorithm. 4. Other Recommendations: All treatment decisions require clinical judgment and consideration of individual patient factors, including patient preferences, comorbidities, previous drug use, risk factors not captured in the FRAX model (e.g. frailty, falls, vitamin D deficiency, increased bone turnover, interval significant decline in bone density) and possible under or overestimation of fracture risk by FRAX. Additional medical evaluation for secondary cause of low bone mineral density may be appropriate. FUTURE SCAN RECOMMENDATION: People with diagnosed cases of osteoporosis or at high risk for fracture should have regular bone mineral density tests. For patients eligible for Medicare, routine testing is allowed once every 2 years. The testing frequency can be increased to one year for patients who have rapidly progressing disease, those who are receiving or discontinuing medical therapy to restore bone mass, or have additional risk factors.
== END 2022-02-20 14:16 | disposition home or self-care (01) ==
LOC: HO.MAMMO 14:15
PROVIDERS: PCP Internal Medicine; Visit Provider Nurse Practitioner Family
DX: Z13.820 Encounter for screening for osteoporosis (principal); Z78.0 Asymptomatic menopausal state
CPT/HCPCS: 77080

== ENCOUNTER → 2022-04-02 15:07 | Outpatient (BNVA) | payer OTHER, SELFPAY | PROVIDERS: PCP Internal Medicine; Referring Provider Internal Medicine; Visit Provider Internal Medicine | DX: Z01.818 Encounter for other preprocedural examination (principal); K22.70 Barrett's esophagus without dysplasia; Z86.010 Personal history of colon polyps | CPT/HCPCS: 99212 ==

== ENCOUNTER 2022-06-06 07:06 | Day surgery (SDC) | payer MEDICARE, OTHER, SELFPAY ==
[2022-05-31 15:57] VITALS: BMI 25.7
[2022-06-03 10:32] VITALS: BMI 26.8
--- NOTE | 2022-06-05 14:11 | HO.ANESPROP2 ---
Documented by User: Johana Edwards NP 06/05/22 14:12 HPI - Anesthesia Eval Consult details Narrative: 66yo F for Upper Endoscopy and Colonoscopy PMFSH Active Problems Active Problems: All Active Problems (Updated 05/31/22 @ 15:18 by Antonette Stanley MD) Hypovitaminosis D (Acute) Ear discomfort (Acute) Upper respiratory tract infection (Acute) Personal history of colonic polyps (Acute) Encounter for hepatitis C screening test for low risk patient (Acute) Rhinitis (Acute) Adult general medical exam (Acute) Screening for colon cancer (Acute) Post-menopausal (Acute) Excessive subcutaneous fat (Acute) Flank mass (Acute) Osteoarthritis of lumbar spine (Acute) Dermatochalasis of eyelid (Acute) Excessive cerumen in both ear canals (Acute) Preoperative clearance (Acute) Uncontrolled hypertension (Acute) High cholesterol (Acute) Myositis (Acute) Protrusion of lumbar intervertebral disc (Acute) Dyslipidemia (Acute) Encounter to discuss test results (Acute) Encounter for repeat Pap smear due to previous insufficient cervical cells (Acute) Hemorrhoids (Acute) Lump of skin of back (Acute) Preop cardiovascular exam (Acute) Essential hypertension (Acute) Pain in pelvis (Acute) Abnormal EKG (Acute) Hair loss (Acute) Obesity (Acute) Encounter for pre-operative cardiovascular clearance (Acute) Folliculitis (Acute) Alopecia (Acute) Benítez esophagus (Acute) GERD with esophagitis (Acute) Family history of hypertension (Acute) Low back pain (Acute) Past Medical History Medical History Abnormal EKG Dyslipidemia Excessive subcutaneous fat Family history of hypertension GERD (gastroesophageal reflux disease) Hair loss High cholesterol Low back pain Myositis Pain in pelvis Protrusion of lumbar intervertebral disc Family History Family History Father Diabetes Hypertension Mother Hypertension Diabetes Lung cancer Skin cancer Arthritis Paternal Aunt Stroke Family history of problems with anesthesia: No Surgical History Surgical History History of colonoscopy History of esophagogastroduodenoscopy History of hemorrhoidectomy History of removal of cyst History of surgery History of tubal ligation History of Problems with Anesthesia: No Social History Social History Household Members: None Housing: House Are you a primary point of care technician to a significant other at home: No Do you presently have visiting nurse or other home services: No Alcohol intake: current Alcohol intake frequency: holidays/special occasions only Alcohol type: wine Patient Tobacco Use Status: Former Tobacco user Quit Date: 2000 Tobacco use type: Cigarette e-Cigarette/Vaping Use: Never Used Second Hand Smoke Exposure: No Use of substances other than those prescribed or required for medical reasons: No Have you been hit, kicked, punched, or otherwise hurt by someone within the past year? 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 Current occupational exposures/hazards: No Cognitive needs: No Hearing needs: No Vision needs: No Meds Allergies Allergy/AdvReac Type Severity Reaction Status Date / Time oxycodone [From PERCOCET] Allergy Intermediate DIFF Verified 06/03/22 10:30 BREATHING Exam Exam Date and Time: June 05, 2022 1411 Height,Weight and Vital Signs: Height 4 ft 9 in Weight 56.245 kg Assessment and Plan Assessment Anesthesia Assessment: Chart Reviewed Final Anesthetic Review Family History of Problems with Anesthesia: No History of Problems with Anesthesia: No Documented by User: Emma Rae MD 06/06/22 08:47 [facility] Past Medical History Medical History Abnormal EKG Dyslipidemia Excessive subcutaneous fat Family history of hypertension GERD (gastroesophageal reflux disease) Hair loss High cholesterol Low back pain Myositis Pain in pelvis Protrusion of lumbar intervertebral disc Family History Family History Father Diabetes Hypertension Mother Hypertension Diabetes Lung cancer Skin cancer Arthritis Paternal Aunt Stroke Surgical History Surgical History History of colonoscopy History of esophagogastroduodenoscopy History of hemorrhoidectomy History of removal of cyst History of surgery History of tubal ligation Social History Social History Household Members: None Housing: House Are you a primary point of care technician to a significant other at home: No Do you presently have visiting nurse or other home services: No Alcohol intake: current Alcohol intake frequency: holidays/special occasions only Alcohol type: wine Patient Tobacco Use Status: Former Tobacco user Quit Date: 2000 Tobacco use type: Cigarette e-Cigarette/Vaping Use: Never Used Second Hand Smoke Exposure: No Use of substances other than those prescribed or required for medical reasons: No Have you been hit, kicked, punched, or otherwise hurt by someone within the past year? 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 Current occupational exposures/hazards: No Cognitive needs: No Hearing needs: No Vision needs: No Meds Allergies Allergy/AdvReac Type Severity Reaction Status Date / Time oxycodone [From PERCOCET] Allergy Intermediate DIFF Verified 06/03/22 10:30 BREATHING Exam Airway Mallampati Class: II TM Dist: >3cm Loose/Missing/Broken Teeth: No Heart: RRR Lungs: CTA Assessment and Plan Assessment Anesthesia Assessment: Anesthesia Plan Discussed Final Anesthetic Review NPO: Yes ASA Class: II Final Preanesthetic Review: Meds/Allgs Chart Reviewed, Consent Obtained/Reviewed and Anes Risks/Benef Reviewed Patient Risk: Low Procedure Risk: Intermediate Anesthetic Plan Anesthetic Plan: MAC: Disposition: Standard PACU
[2022-06-06 08:04] VITALS: BP 132/110; PULSE 67; RESP 16; TEMP 36.9; O2SAT 98
[2022-06-06] MEDS: Lactated Ringers 1,000 ML 100 ML IVCONT (08:18)
--- NOTE | 2022-06-06 08:46 | P.OP_ITS ---
Operative Note Operative Note Date of Service: 06/06/22 Narrative: Procedure:?Esophagogastroduodenoscopy and Colonoscopy Indication:?Benítez's esophagus, personal hx of polyps Endoscopist:?Mulu Blas MD Anesthesia Provider:?Dr Emma Rae Anesthesia type:?MAC Instrument:?Olympus GIF-H190, PCF-H190L EGD Procedure:?? The procedure, indications, preparation and potential complications were reviewed with the patient, who indicated understanding and gave written informed consent to proceed. A physical exam was performed. A distal attachment cap was affixed to the tip of the endoscope which was then introduced through the mouth, and advanced to the second part of the duodenum. The mucosa was carefully examined on slow withdrawal of the endoscope. The patient tolerated the procedure well. There were no immediate complications.? ? EGD Findings:? * Esophagus: The Z line was at 33 cm and salmon pink colored mucosa was noted to extend up to 32 cm in a circumferential manner with 2 tongues up to 31 cm C1M2. Hiatal hernia was noted with diaphragmatic pinch at 36 cm. Cold forceps biopsies were taken from 33 cm (GEJ) and 31 cm. A small patch of heterotopic gastric mucosa was noted at the level of cricopharyngeus. * Stomach:?Normal mucosa was noted in the stomach. Retroflexion in the fundus confirmed the size and morphology of the hiatal hernia with Hill Class III. * Duodenum:? Normal mucosa to the extent seen.? Additional intervention: A [employer]-3D kit was used to obtain further sampling. Colonoscopy Procedure:? The patient was then turned for the colonoscopy. A digital rectal exam was performed which was normal.? A distal attachment cap was affixed to the tip of the scope and the colonoscope was then inserted through the anus and advanced through the colon to the cecum at 65 cm and terminal ileum. The appendiceal orifice and ileocecal valve was identified.? Mucosa was carefully examined under high definition white light as the instrument was slowly withdrawn in a retrograde panoramic fashion.? Ascending colon was intubated twice. Retroflexion was performed in rectum. The procedure was not difficult. There were no immediate obvious complications. The quality of the prep was BBPS: 3+2+3 = adequate Withdrawal time 12 minutes. Limitations: No limitations Colonoscopy Findings: Mucosa: Arteriovenous malformation was noted in transverse colon without stigmata of recent bleeding. This was also agitated with water jet without any bleeding noted. Remaining mucosa otherwise normal in colon and terminal ileum. Protruding lesions: * 1 sessile polyp of size 2 mm was noted in the sigmoid colon. Cold forceps polypectomy was performed.? The polyp was completely removed and retrieved.? * Large internal hemorrhoids with stigmata of recent bleeding. Excavated lesions: * Mild diverticulosis of sigmoid colon. * Impression:? 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 * Internal hemorrhoids * Diverticulosis Recommendations: * Await path results.? * Further management of Benítez's will depend on presence and extent of dysplasia * Continue PPI therapy * Repeat colonoscopy for asymptomatic colon cancer screening in 7-10 years if the polyp is an adenoma. * Increase fiber intake Findings were reviewed with the patient and relevant handouts were provided.
--- NOTE | 2022-06-06 08:47 | MHC.SHP ---
Pre-Procedural Eval Section A Date of Service: 06/06/22 Section B Chief Complaint: Benítez's esophagus,Personal hx of colonic polyps Details of Present Illness: PMH: Abnormal EKG Dyslipidemia Excessive subcutaneous fat Family history of hypertension GERD (gastroesophageal reflux disease) Hair loss High cholesterol Low back pain Myositis Pain in pelvis Protrusion of lumbar intervertebral disc Surgical History History of colonoscopy History of esophagogastroduodenoscopy History of hemorrhoidectomy History of removal of cyst History of surgery History of tubal ligation Relevant Family History (Specify if Yes): No Present Medications: see Short Stay Collaborative assessment Allergies: Allergies Allergy/AdvReac Type Severity Reaction Status Date / Time oxycodone [From PERCOCET] Allergy Intermediate DIFF Verified 06/03/22 10:30 BREATHING Review of Systems Review of Systems Comment: Ten point ROS negative except as above Exam Exam Comment: Gen appear: No acute distress HEENT: no icterus Chest: No overt resp distress Abd: soft, nontender, nondistended Psych: Stable affect, answering questions appropriately Neuro: A/Ox3 noted to move all extremities spontaneously Ext: no peripheral edema Plan Diagnosis/Plan: Unchanged I have reviewed the history and physical and performed a pertinent physical examination on my patient. No changes have occurred unless specified. Time Spent With Patient Time: Total time managing care of this patient today ____ minutes.
[2022-06-06 09:40] VITALS: BP 93/56; PULSE 77; RESP 16; TEMP 36.2; O2SAT 98
[2022-06-06 09:59] VITALS: BP 149/85; PULSE 66; RESP 18; TEMP 36.2; O2SAT 97
== END 2022-06-06 10:41 | disposition home or self-care (01) ==
PROVIDERS: PCP Internal Medicine; Visit Provider Internal Medicine
PROC: (CPT 45380; principal; 2022-06-06 08:30)
DX: Z12.11 Encounter for screening for malignant neoplasm of colon (principal); Z86.010 Personal history of colon polyps; K63.5 Polyp of colon; K55.20 Angiodysplasia of colon without hemorrhage; K57.30 Diverticulosis of large intestine without perforation or abscess without bleeding; K64.8 Other hemorrhoids; K22.70 Barrett's esophagus without dysplasia; K22.89 Other specified disease of esophagus; K44.9 Diaphragmatic hernia without obstruction or gangrene; K21.9 Gastro-esophageal reflux disease without esophagitis; Q39.8 Other congenital malformations of esophagus; E78.00 Pure hypercholesterolemia, unspecified; R10.2 Pelvic and perineal pain; L65.9 Nonscarring hair loss, unspecified; M51.26 Other intervertebral disc displacement, lumbar region; M60.9 Myositis, unspecified; Z79.899 Other long term (current) drug therapy; Z88.8 Allergy status to other drugs, medicaments and biological substances; Z87.891 Personal history of nicotine dependence
CPT/HCPCS: 45380; 43239; 88305

== ENCOUNTER → 2022-07-18 15:41 | Outpatient (BNVA) | payer MEDICARE, OTHER, SELFPAY | PROVIDERS: PCP Internal Medicine; Visit Provider Advanced Practice Midwife ==

== ENCOUNTER → 2022-09-13 14:52 | Outpatient (BNVA) | payer MEDICARE, SELFPAY | PROVIDERS: PCP Internal Medicine; Visit Provider Internal Medicine | DX: K22.70 Barrett's esophagus without dysplasia (principal); Z86.010 Personal history of colon polyps | CPT/HCPCS: 99212 ==

== ENCOUNTER 2022-12-19 08:33 | Outpatient (AMB) | payer MEDICARE, SELFPAY ==
--- NOTE | 2022-12-19 08:35 | MHC.OFFWIV ---
Intake Vital Signs 12/19/22 08:38 Weight 117 lb BP 140/98 H Blood Pressure Location Lt brachial Position Sitting Pulse 80 Pulse Source Pulse Oximeter Pulse Oximetry (%) 99 Oxygen Delivery Method Room Air Intake Visit Reasons: EP, diarrhea, abd pain Intake Note: Patient here for abd pain that has been present for about 1 week on and off, she went and had a Colonoscopy and was advised that she had thinning of stomach solis . she also has had hemorrhoids that she has an appt for in dec but she noticed she is bleeding a lot every time she uses the bathroom. Patient Tobacco Use Status: Former Tobacco user Quit Date: 2000 Allergies oxycodone [From PERCOCET] Allergy (Intermediate, Verified 12/19/22 08:40) DIFF BREATHING Do you need a note to return to daycare/school/sports/work: No HPI HPI Comments History of Present Illness Details 66-year-old female history of hemorrhoids the presents for multiple complaints. Patient is endorsing some off and on occasional abdominal pain. History of she is concerned because her hemorrhoids or bleeding more than usual she use Desitin and which has helped in the past was no longer helping. She does have appointment with her primary care and GI per her GI appointment is not scheduled till January. She denies nausea vomiting fever chills. ON LICENSE OF [facility] Medical History Abnormal EKG Dyslipidemia Excessive subcutaneous fat Family history of hypertension GERD (gastroesophageal reflux disease) Hair loss High cholesterol Low back pain Myositis Pain in pelvis Protrusion of lumbar intervertebral disc Surgical History History of colonoscopy History of esophagogastroduodenoscopy History of hemorrhoidectomy History of removal of cyst History of surgery History of tubal ligation Family History Father Diabetes Hypertension Mother Hypertension Diabetes Lung cancer Skin cancer Arthritis Paternal Aunt Stroke Social History Household Members: None Housing: House Are you a primary long term care social worker to a significant other at home: No Do you presently have visiting nurse or other home services: No Alcohol intake: current Alcohol intake frequency: holidays/special occasions only Alcohol type: wine Patient Tobacco Use Status: Former Tobacco user Quit Date: 2000 Tobacco use type: Cigarette e-Cigarette/Vaping Use: Never Used Second Hand Smoke Exposure: No service: No Current occupational status: employed 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 Current occupational exposures/hazards: No Cognitive needs: No Hearing needs: No Vision needs: No Review of Systems Const All systems reviewed & are unremarkable except as noted in HPI and below GI Reports abdominal pain and Reports hematochezia Physical Exam Vital Signs: Last Vital Signs Pulse 80 12/19/22 08:38 BP 140/98 H 12/19/22 08:38 Pulse Ox 99 12/19/22 08:38 Oxygen Delivery Method Room Air 12/19/22 08:38 Const General: cooperative, no acute distress and alert Orientation/consciousness: patient oriented x3 Limitations: no limitations HEENT Head: Yes normal to inspection Ears: hearing grossly normal bilaterally and external ears normal General nose exam: Normal external nose present Eyes General: appearance normal, both eyes and all related structures Neck Neck: Yes normal visual inspection Chest Chest palpation & inspection: normal inspection of the chest Resp Effort & Inspection: normal respiratory effort, able to speak in complete sentences and no audible wheezes Auscultation: clear to auscultation bilaterally Cardio Rate: regular rate Rhythm: regular rhythm GI Inspection: Yes normal to inspection Palpation (GI): Soft to palpation and nontender Skin General skin exam: no rashes or lesions noted Neuro General: patient oriented x3 Psych Appearance: grossly normal Mental Status: mental status grossly normal Speech and movement: Normal speech and movement present Affect: normal affect Attitude: cooperative Thought process: Normal thought process present Thought content: Normal thought content present Assessment & Plan Assessment & Plan (1) Hemorrhoids: Code(s): K64.9 - Unspecified hemorrhoids Qualifiers: Hemorrhoid type: unspecified Qualified Code(s): K64.9 - Unspecified hemorrhoids Plan: VSS. Exam patient presents alert oriented no acute distress no tenderness to palpation on abdominal exam. Discussed with patient different abdominal pain becomes Consta intense or she has tenderness fevers or chills she has presents to the emergency department with regard to patient's hemorrhage she has follow-up already scheduled discussed with patient that she will have continued bleeding in that she can try preparation H. also discussed with patient that the amount of blood isn't as concerning as the symptoms in given that she is asymptomatic at this time I am not concerned. Recommend patient continue to reach out to the GI office if she can be seen sooner in of the bleeding gets worse or she becomes symptomatic she needs to report to the emergency department. Discharge instructions, follow up and treatment are discussed with patient in my usual fashion. Alternatives in treatment are also discussed. The patient will return for worsening symptoms or as needed. Advised that any labs/imaging ordered will be followed up on and contact made if further treatment needed. Counseled that patient's condition may require further evaluation and/or treatment. Symptoms of concern for worsening disorder discussed in detail in my customary manner. Patient does verbalize understanding of the plan, there are no apparent barriers to communication. The patient is given the opportunity to ask questions and have them answered to his/her satisfaction Coding Level of Care Code Est Pt Level 3 (75316) Diagnoses Hemorrhoids, unspecified hemorrhoid type K64.9 Hemorrhoid type: unspecified
[2022-12-19 08:38] VITALS: BP 140/98; PULSE 80; O2SAT 99
== END 2022-12-19 09:13 | disposition home or self-care (01) ==
PROVIDERS: PCP Internal Medicine; Visit Provider Physician Assistant
DX: K64.9 Unspecified hemorrhoids (principal)
CPT/HCPCS: 99213

== ENCOUNTER 2022-12-21 12:46 | Observation (INO) | payer MEDICARE, SELFPAY ==
--- NOTE | ~2022-12-21 | CT_ITS ---
EXAMINATION: CT ABDOMEN AND PELVIS WITHOUT CONTRAST CLINICAL INFORMATION: Rectal bleed and left lower abdominal pain COMPARISON: None available. TECHNIQUE: Multidetector volumetric imaging was performed from the superior aspect of the liver through the pubic symphysis. Sagittal and coronal reformatted images were obtained on the technologist's workstation. This CT examination was performed using dose optimization techniques as appropriate, variously including the following: *Automated exposure control *Adjustment of mA and/or kV according to patient size (this includes techniques or standardized protocols for targeted exams where dose is matched to indication/reason for exam; i.e. extremities or head) *Use of iterative reconstruction technique DLP: 710 mGy-cm FINDINGS: LUNG BASES: The lung bases are clear. The heart size is normal. There is focal eventration of posterior left hemidiaphragm. LIVER, GALLBLADDER, AND BILIARY TREE: The liver is normal in size, shape, and attenuation. There is 3 mm calcification in right hepatic lobe. No focal hepatic lesion or biliary ductal dilatation is present. The gallbladder is unremarkable with no evidence of radiopaque gallstones, gallbladder wall thickening, or obvious pericholecystic inflammatory changes. PANCREAS: Unremarkable. SPLEEN: Unremarkable. ADRENAL GLANDS: Unremarkable. KIDNEYS AND URETERS: The kidneys are normal in size, shape, and attenuation. There is an 4 mm nonobstructive radiopaque calculi lower pole calyx left kidney. No additional radiopaque calculi seen. There is no caliectasis or hydronephrosis. BLADDER: The bladder is distended without wall thickening or radiopaque calculi. GASTROINTESTINAL TRACT: There is scattered stool, diverticula and gas seen throughout the colon without distention. The small bowel loops are normal caliber. Appendix is normal caliber. The stomach is nondistended. No free air or free fluid seen. ABDOMINAL WALL: There is a small umbilical hernia. In addition there are bilateral small to moderate size lumbar hernia containing fat centered around L2-L3 vertebra. There is a left inguinal hernia containing a soft tissue density question left fallopian tube or ovary and peritoneal fat. LYMPH NODES: Normal. VASCULAR: Unremarkable. PELVIC VISCERA: No free air or free fluid is seen. There is midline soft tissue mass below the pelvic diaphragm question rectocele versus mass. Consider direct sigmoidoscopy OSSEOUS STRUCTURES: There is grade 1 anterolisthesis L4-L5. Rest of the vertebral alignment is normal. Mild loss of L2-L3, L3-L4 disc heights is noted. No aggressive lytic or sclerotic process seen. There is minimal upper lumbar spine spondylosis. CT/CT abdomen pelvis wo IV con IMPRESSION: Pelvic soft tissue mass below diaphragm. Question rectocele versus rectal mass. Recommend direct visualization versus sigmoidoscopy. The ischiorectal fossa is normal. Left inguinal hernia containing peritoneal fat and likely left fallopian tube or ovary. This could explain patient's left lower quadrant pain. Correlate clinically. Umbilical hernia containing fat. Bilateral posterior lumbar hernia containing fat Mild constipation. Nonobstructive left lower pole renal calculi. Mildly distended urinary bladder. Fleischner guidelines were followed.
[2022-12-21 12:49] VITALS: BP 172/90; PULSE 65; RESP 17; TEMP 36.4; O2SAT 98; BMI 24.0
--- NOTE | 2022-12-21 12:49 | ED.GENADULT ---
HPI - General Adult General Chief complaint: Abdominal Pain Stated complaint: back pain Time Seen by Provider: 12/21/22 13:10 Source: patient Mode of arrival: ambulatory Limitations: no limitations History of Present Illness HPI narrative: A 66-year-old female came in for evaluation of left lower abdominal pain for 1 week and rectal bleed bright red blood per rectum for a week. Patient felt nausea that is resolved now no vomiting, been having frequent bowel movement with loose stool and bright red blood in it, no fever, no chills, no recent travel, no recent use of antibiotic, 5 no sick contact, no exposure to bad food recently. Surgical history significant for tubal ligation. No dysuria, frequent urination or hematuria. Related Data Home Medications Medication Instructions Recorded Confirmed No Known Home Meds 12/21/22 12/21/22 Allergies Allergy/AdvReac Type Severity Reaction Status Date / Time oxycodone [From PERCOCET] Allergy Intermediate DIFF Verified 12/19/22 08:40 BREATHING Review of Systems Review of Systems: All other systems are reviewed and are negative Constitutional: Reports as per HPI and Reports no additional constitutional complaints Eyes: Reports as per HPI and Reports no additional eye complaints Reports system reviewed and no additional complaints, except as documented Cardiovascular: Reports as per HPI and Reports no additional cardiovascular complaints Respiratory: Reports as per HPI and Reports no additional respiratory complaints Gastrointestinal: Reports as per HPI and Reports no additional gastrointestinal complaints Genitourinary: Reports no additional female genitourinary complaints Musculoskeletal: Reports no additional musculoskeletal complaints Skin/Breast: Reports system reviewed and no additional complaints, except as docu Psychiatric: Reports no additional psychiatric complaints Endocrine: Reports no additional endocrine complaints Hematologic/Lymphatic: Reports no additional hematologic/lymphatic complaints Allergic/Immunologic: Reports no additional allergic/immunologic complaints Reports system reviewed and no additional complaints, except as documented and Reports Abnormal speech present [facility] Past Medical History Medical History (Updated 12/21/22 @ 15:50 by Ashely Lovell NP) Dermatochalasis of eyelid Excessive subcutaneous fat Myositis Protrusion of lumbar intervertebral disc Dyslipidemia Hair loss GERD (gastroesophageal reflux disease) High cholesterol Surgical History History of colonoscopy History of esophagogastroduodenoscopy History of removal of cyst History of surgery History of hemorrhoidectomy History of tubal ligation Family History Family History Father Diabetes Hypertension Mother Hypertension Diabetes Lung cancer Skin cancer Arthritis Paternal Aunt Stroke Social History Social History Household Members: None Housing: House Are you a primary care management associate to a significant other at home: No Do you presently have visiting nurse or other home services: No Alcohol intake: current Alcohol intake frequency: holidays/special occasions only Alcohol type: wine Patient Tobacco Use Status: Former Tobacco user Quit Date: 2000 Tobacco use type: Cigarette Smoked in Last 30 Days: No e-Cigarette/Vaping Use: Never Used Second Hand Smoke Exposure: No Use of substances other than those prescribed or required for medical reasons: No Advance Directives: Yes Advance Directives Information Provided: Yes Advance Directives on File: Yes Advance Directives Date on File: 09/23/22 service: No Current occupational status: employed 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 Blood pressure elevated. Heart rate normal. Respiratory rate normal. Temperature normal. Oxygen saturation normal. Appearance: Alert. Oriented X3. No acute distress. Head: Normal external exam. Normocephalic. Atraumatic. No Martínez signs noted. No raccoon eyes noted Eyes: PERRLA. EOMI. Conjunctiva and sclera normal. Eyelids normal. ENT: TM's Normal. Pharynx normal. Uvula midline. Moist mucous membranes. No trismus noted. No drooling noted. No muffled voice noted. Neck: Normal inspection. Neck supple. FROM. No adenopathy. Thyroid Normal. No meningeal signs. No neck mass noted. CVS: Normal heart rate and rhythm. Heart sound normal. No murmurs noted. Pulses normal throughout. Respiratory: No respiratory distress. Painless inspiration. Breath sounds normal. No wheezes/rales/rhonchi noted. Chest nontender. No accessory muscle usage noted or decreased air movement noted. Abdomen: Soft and nontender. Bowel sounds normal in all 4 quadrants. No distention noted. No organomegaly noted. No visible injury noted. Rectal exam: No hemorrhoid, brown stool with bright red blood in the stool guaiac positive, no masses appreciated in the rectal vault. Back: No CVA tenderness. Full range of motion noted. Skin: Skin warm and dry. Normal skin color. Normal skin turgor. No rashes/lesions/lacerations noted. Extremities: No lower extremity edema. Extremities exhibit normal range of motion. Extremities nontender. Neuro: Oriented X 3. Cranial nerve exam: II-XII are grossly intact No motor deficit. No sensory deficit. Reflexes normal. Course Course Course Narrative: RME- 66 year old female presents for evaluation of left lower abdominal pain that started today. Plan for labs and a UA Reevaluation(s) Reevaluation #1: Bright red blood per rectum, concern of rectal mass on the CT. Will admit for further investigation. Time: 15:36 Medications Administered Generic Name Dose Route Start Last Admin Trade Name Freq PRN Reason Stop Dose Admin Sodium Chloride 3 ml 12/21/22 16:00 12/21/22 16:22 0.9 % Sodium Chloride Flush 3 Ml Syringe IVFLUSH 3 ml QSHIFT HIEU Administration Medical Decision Making Differential Diagnosis Differential Diagnoses: The differential diagnosis associated with the presentation includes (Rectal bleeding, diverticular disease, colitis, GI mass, electrolyte abnormality, severe anemia.) Admission/Observation Consideration of admission/observation: Escalation of care including admission/observation considered Consult Healthcare Provider Management of the patient was discussed with: Hospitalist (Dr. Mcdermott) Lab Data MDM Lab Attestation statement: I reviewed the patient's lab results. 12/21/22 16:10 12/21/22 13:01 Labs: Lab Results 12/21/22 12/21/22 12/21/22 Range/Units 13:01 13:38 16:10 WBC 6.4 (4.8-10.8) X10*3/uL RBC 4.64 (4.20-5.50) X10*6/uL Hgb 13.2 13.3 (12.0-16.0) g/dl Hct 40.7 40.5 (37.0-47.0) % MCV 87.7 (80.0-98.0) fL MCH 28.4 (27.0-33.0) pg MCHC 32.4 (31.0-35.0) g/dl RDW 14.1 (11.0-16.0) % Plt Count 326 (160-400) X10*3/uL MPV 8.6 L (9.4-12.3) fL Immature Gran % (Auto) 0.2 (0.0-0.4) % Neut % (Auto) 42.8 L (45-73) % Lymph % (Auto) 44.3 H (20-40) % [place] % (Auto) 6.4 (2-11) % Eos % (Auto) 5.2 H (0-4) % Baso % (Auto) 1.1 (0-2) % Lymph # (Auto) 2.8 (1.2-4.9) X10*3/uL [place] # (Auto) 0.4 (0.1-1.2) X10*3/uL Eos # (Auto) 0.3 (0.0-0.4) X10*3/uL Baso # (Auto) 0.1 (0.0-0.2) X10*3/uL Abs Immat Gran (auto) 0.01 (0.00-0.03) X10*3/uL Absolute Neuts (auto) 2.7 (2.0-8.3) x10*3/uL Absolute Nucleated RBC 0.000 (0.0-0.012) X10*3/uL Nucleated RBC % (auto) 0.0 (0.0-0.2) /100WBC Sodium 141 (135-145) mmol/L Potassium 3.5 (3.3-5.1) mmol/L Chloride 107 (96-108) mmol/L Carbon Dioxide 24 (22-29) mmol/L Anion Gap 14 (12-20) BUN 10 (9-16) mg/dL Creatinine 0.66 (0.5-1.4) mg/dL Estim Creat Clear Calc 62.7 Estimated GFR > 60 Random Glucose 93 (60-115) mg/dL Calcium 9.8 (8.4-10.2) mg/dL Total Bilirubin 0.3 (0.0-1.0) mg/dL AST 20 (5-31) U/L ALT 15 (0-31) U/L Alkaline Phosphatase 60 (39-117) U/L Total Protein 7.2 (6.5-8.0) g/dL Albumin 4.2 (3.5-5.0) g/dL Lipase 24 (8-78) U/L Urine Color Yellow Urine Appearance Cloudy Urine pH 7.0 (5.0-9.0) Ur Specific [place] <= 1.005 (1.005-1.025) Urine Protein Negative (Neg-Trace) mg/dL Urine Glucose (UA) Negative (Negative) mg/dL Urine Ketones Negative (Negative) mg/dL Urine Blood Trace H (Negative) Urine Nitrite Negative (Negative) Ur Leukocyte Esterase Negative (Negative) Urine RBC 0-2 (0-2) /HPF Urine WBC 0-5 (0-5) /HPF Ur Squamous Epith Cells 0-2 (0-2) /HPF Urine Bacteria None Seen (None Seen) Hyaline Casts 0-2 (0-2) /LPF Stool Occult Blood POSITIVE (NEGATIVE) Independent Interpretation I performed an independent interpretation of an: CT Scan (Abdomen pelvis:Pelvic soft tissue mass below diaphragm. Question rectocele versus rectal mass. Recommend direct visualization versus sigmoidoscopy. The ischiorectal fossa is normal. Left inguinal hernia containing peritoneal fat and likely left fallopian tube or ovary. This could explain patient's) Radiology Impression Discussion of test interpretation with radiology: I have reviewed the radiologist's reading. Discharge Plan Discharge Clinical Impression: Bright red rectal bleeding, Abdominal pain Patient Disposition: Admitted As Inpatient
[2022-12-21 13:11] LABS: MANUAL DIFF FLAG NO
[2022-12-21 13:15] LABS: Basophils Absolute Auto 0.1 X10*3/uL (0.0-0.2); Basophils Percent Auto 1.1 % (0-2); Eosinophils Absolute Auto 0.3 X10*3/uL (0.0-0.4); Eosinophils Percent Auto 5.2 % (0-4); Hematocrit 40.7 % (37.0-47.0); Hemoglobin 13.2 g/dl (12.0-16.0); Imm Gran Abs Auto 0.01 X10*3/uL (0.00-0.03); Imm Gran Pct Auto 0.2 % (0.0-0.4); Lymphocytes Absolute Auto 2.8 X10*3/uL (1.2-4.9); Lymphocytes Percent Auto 44.3 % (20-40); Mean Corpuscular HGB Conc 32.4 g/dl (31.0-35.0); Mean Corpuscular Hemoglobin 28.4 pg (27.0-33.0); Mean Corpuscular Volume 87.7 fL (80.0-98.0); Mean Platelet Volume 8.6 fL (9.4-12.3); Monocytes Absolute Auto 0.4 X10*3/uL (0.1-1.2); Monocytes Percent Auto 6.4 % (2-11); Neutrophils Absolute Auto 2.7 x10*3/uL (2.0-8.3); Neutrophils Percent Auto 42.8 % (45-73); Platelet Count 326 X10*3/uL (160-400); Red Blood Count 4.64 X10*6/uL (4.20-5.50); Red Cell Distribution Width 14.1 % (11.0-16.0); White Blood Count 6.4 X10*3/uL (4.8-10.8)
[2022-12-21 13:17] LABS: Appearance Urine Cloudy; Color Urine Yellow; Glucose Urine UA Negative (Negative); Leukocyte Esterase Urine Negative (Negative); Nitrite Urine Negative (Negative); Specific Gravity - Urine <= 1.005 (1.005-1.025); UMIC TRIGGER UACC YES; Urine Blood Trace (Negative); Urine Ketones Negative (Negative); Urine Protein Negative (Neg-Trace)
[2022-12-21 13:19] LABS: Bacteria Urine None Seen (None Seen); Hyaline Casts Urine 0-2 /LPF (0-2); RBC Urine 0-2 /HPF (0-2); Squamous Epithelial Cell Urine 0-2 /HPF (0-2); WBC Urine 0-5 /HPF (0-5)
[2022-12-21 13:28] LABS: Alanine Aminotransferase 15 U/L (0-31); Albumin Level 4.2 g/dL (3.5-5.0); Alkaline Phosphatase 60 U/L (39-117); Anion Gap 14 (12-20); Aspartate Amino Transferase 20 U/L (5-31); Bilirubin Total 0.3 mg/dL (0.0-1.0); Blood Urea Nitrogen 10 mg/dL (9-16); Calcium 9.8 mg/dL (8.4-10.2); Carbon Dioxide 24 mmol/L (22-29); Chloride 107 mmol/L (96-108); Creatinine Clr Calc Pharmacy 62.7; Estimated Glomerular Filt Rate > 60; Glucose Random 93 mg/dL (60-115); Lipase 24 U/L (8-78); Potassium 3.5 mmol/L (3.3-5.1); Sodium 141 mmol/L (135-145); Total Protein 7.2 g/dL (6.5-8.0)
[2022-12-21 13:38] VITALS: BP 169/80; PULSE 63; RESP 18; O2SAT 98
[2022-12-21 13:46] LABS: OBS Int Ctl Valid YES; OBS1 POSITIVE (NEGATIVE)
--- NOTE | 2022-12-21 14:48 | PC.NURSE ---
[facility] at [facility]. pt reports L ovary pain starting today. abd pain with palpation, rectal bleeding with loose stool. denies blood in urine nor trouble with urination. does report some pain urinating today. hx of hemorrhoids.
--- NOTE | 2022-12-21 15:41 | P.HPHOSP_ITS ---
History of Present Illness Date of Service: 12/21/22 <Ashely Lovell NP - Last Filed: 12/22/22 09:41> Chief Complaint: Rectal bleeding <Ashely Lovell NP - Last Filed: 12/22/22 09:41> 66-year-old woman presenting to the ER with complaints of 2 weeks of left lower abdominal pain and bright red blood per rectum. Patient reported some nausea without fever or vomiting. she was having frequent loose stools with bright red blood in it. She denied any recent illness, travel, sick contacts, trauma or injury. In the ER, her H&H is within normal range, all other labs within acceptable limits, vital signs stable although blood pressure is mildly elevated. Abdominal CT showing pelvic soft tissue mass below the diaphragm, question of rectocele versus rectal mass. She was not given any medications in the ER, she will be placed on observation for further management of rectal bleeding and abnormal abdominal CT findings. <Ashely Lovell NP - Last Filed: 12/22/22 09:41> Review of Systems 2 Review of Systems: Denies any recent fever chills or decrease in appetite respiratory denies any shortness of breath coverage production cardiovascular denied chest pain gastrointestinal See HPI genitourinary denies any dysuria frequency or hematuria musculoskeletal denies any joint pain or swelling neuropsych denies any weakness or seizures all other systems reviewed are negative <Ashely Lovell NP - Last Filed: 12/22/22 09:41> [facility] Medical History: Medical History (Updated 12/22/22 @ 09:41 by Ashely Lovell NP) Dermatochalasis of eyelid Excessive subcutaneous fat Myositis Protrusion of lumbar intervertebral disc Dyslipidemia Hair loss GERD (gastroesophageal reflux disease) High cholesterol <Ashely Lovell NP - Last Filed: 12/22/22 09:41> Family History: Family History Father Diabetes Hypertension Mother Hypertension Diabetes Lung cancer Skin cancer Arthritis Paternal Aunt Stroke <Ashely Lovell NP - Last Filed: 12/22/22 09:41> Surgical History: Surgical History History of colonoscopy History of esophagogastroduodenoscopy History of removal of cyst History of surgery History of hemorrhoidectomy History of tubal ligation <Ashely Lovell NP - Last Filed: 12/22/22 09:41> Social History: Social History Household Members: None Housing: House Are you a primary critical care technician to a significant other at home: No Do you presently have visiting nurse or other home services: No Alcohol intake: current Alcohol intake frequency: holidays/special occasions only Alcohol type: wine Patient Tobacco Use Status: Former Tobacco user Quit Date: 2000 Tobacco use type: Cigarette Smoked in Last 30 Days: No e-Cigarette/Vaping Use: Never Used Second Hand Smoke Exposure: No Use of substances other than those prescribed or required for medical reasons: No Advance Directives: Yes Advance Directives Information Provided: Yes Advance Directives on File: Yes Advance Directives Date on File: 09/23/22 service: No Current occupational status: employed 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 Current occupational exposures/hazards: No Cognitive needs: No Hearing needs: No Vision needs: No <Ashely Lovell NP - Last Filed: 12/22/22 09:41> Meds Allergies/Adverse reactions: Allergies Allergy/AdvReac Type Severity Reaction Status Date / Time oxycodone [From PERCOCET] Allergy Intermediate DIFF Verified 12/19/22 08:40 BREATHING <Ashely Lovell NP - Last Filed: 12/22/22 09:41> Home medications: Home Medications Medication Instructions Recorded Confirmed Last Taken Type No Known Home Meds 12/21/22 12/21/22 Unknown History <Ashely Lovell NP - Last Filed: 12/22/22 09:41> Physical Exam 2 Vital Signs and Narrative: Vital Signs: Last Vital Signs Temp 97.5 F 12/21/22 12:49 Pulse 63 12/21/22 13:38 Resp 18 12/21/22 13:38 BP 169/80 H 12/21/22 13:38 Pulse Ox 98 12/21/22 13:38 O2 Del Method Room Air 12/21/22 12:49 BMI result Body Mass Index 24.0 <Ashely Lovell NP - Last Filed: 12/22/22 09:41> Appearing in no acute distress head is normocephalic atraumatic eyes pupils are PERRLA sclera is anicteric mouth throat mucous membranes are intact and moist neck is supple no lymphadenopathy, no JVD noted lung sounds are clear to auscultation heart regular rate rhythm, clear S1, S2 positive bowel sounds, abdomen is soft, nontender neuro patient is alert x3, no focal deficits <Ashely Lovell NP - Last Filed: 12/22/22 09:41> Results Labs CBC and Chem 7: 12/22/22 05:45 12/22/22 05:45 <Ashely Lovell NP - Last Filed: 12/22/22 09:41> Labs: Laboratory Results - last 24 hr 12/21/22 12/21/22 13:01 13:38 MCV 87.7 MCH 28.4 MCHC 32.4 RDW 14.1 Plt Count 326 MPV 8.6 L Immature Gran % (Auto) 0.2 Neut % (Auto) 42.8 L Lymph % (Auto) 44.3 H [place] % (Auto) 6.4 Eos % (Auto) 5.2 H Baso % (Auto) 1.1 Lymph # (Auto) 2.8 [place] # (Auto) 0.4 Eos # (Auto) 0.3 Baso # (Auto) 0.1 Abs Immat Gran (auto) 0.01 Absolute Neuts (auto) 2.7 Absolute Nucleated RBC 0.000 Nucleated RBC % (auto) 0.0 Anion Gap 14 Estim Creat Clear Calc 62.7 Estimated GFR > 60 Random Glucose 93 Calcium 9.8 Total Bilirubin 0.3 AST 20 ALT 15 Alkaline Phosphatase 60 Total Protein 7.2 Albumin 4.2 Lipase 24 Urine Color Yellow Urine Appearance Cloudy Urine pH 7.0 Ur Specific [place] <= 1.005 Urine Protein Negative Urine Glucose (UA) Negative Urine Ketones Negative Urine Blood Trace H Urine Nitrite Negative Ur Leukocyte Esterase Negative Urine RBC 0-2 Urine WBC 0-5 Ur Squamous Epith Cells 0-2 Urine Bacteria None Seen Hyaline Casts 0-2 Stool Occult Blood POSITIVE <Ashely Lovell NP - Last Filed: 12/22/22 09:41> Imaging Radiologist's Impressions: Impressions Abdomen/Pelvis CT 12/21/22 14:20 IMPRESSION: Pelvic soft tissue mass below diaphragm. Question rectocele versus rectal mass. Recommend direct visualization versus sigmoidoscopy. The ischiorectal fossa is normal. Left inguinal hernia containing peritoneal fat and likely left fallopian tube or ovary. This could explain patient's left lower quadrant pain. Correlate clinically. Umbilical hernia containing fat. Bilateral posterior lumbar hernia containing fat Mild constipation. Nonobstructive left lower pole renal calculi. Mildly distended urinary bladder. Fleischner guidelines were followed. <Ashely Lovell NP - Last Filed: 12/22/22 09:41> Assessment and Plan (1) Abdominal pain: Qualifiers: Abdominal location: left lower quadrant Qualified Code(s): R10.32 - Left lower quadrant pain <Ashely Lovell NP - Last Filed: 12/22/22 09:41> Status: Acute <Ashely Lovell NP - Last Filed: 12/22/22 09:41> 66 year old women placed on observation with rectal bleeding Acute Rectal bleeding. unspecified normal HH, stool occult positive abd and pelvic CT showing rectocele vs rectal mass recheck HH This evening type and screen and transfuse as necessary PPI GI consult pending Hypertension monitor DVT prophylaxis with mechanical compression boots due to rectal bleeding Full code Observation <JAVIER Morfin Last Filed: 12/22/22 09:41> Time Spent With Patient Time: Total time managing care of this patient today ____ minutes. <Ashely Lovell NP - Last Filed: 12/22/22 09:41> Quality Stroke Does the patient have a stroke diagnosis?: No <Mendoza Mcdermott MD - Last Filed: 12/22/22 07:01> VTE Prior VTE?: No <Mendoza Mcdermott MD - Last Filed: 12/22/22 07:01> VTE Risk Level:: Medical - moderate - high <JAVIER Morfin Last Filed: 12/22/22 09:41> VTE Device Contraindication: N/A - Device Ordered <Ashely Lovell NP - Last Filed: 12/22/22 09:41> VTE Drug Contraindication: Treatment Not Indicated <Ashely Lovell NP - Last Filed: 12/22/22 09:41>
[2022-12-21 16:15] LABS: Hematocrit 40.5 % (37.0-47.0); Hemoglobin 13.3 g/dl (12.0-16.0)
--- NOTE | 2022-12-21 16:16 | PHA.MEDREC ---
Pharmacy Consult ? Medication Reconciliation Pharmacy has completed the medication reconciliation. spoke with patient and daughter. She was taking a calcium supplement daily but has not been taking it lately. She stopped taking omeprazole about 2 weeks ago, patient felt that it was making things worse.
[2022-12-21] MEDS: 0.9 % Sodium Chloride Flush 3 ML SYRINGE IVFLUSH ×2 (16:22→21:06)
[2022-12-21 16:23] VITALS: BP 167/82; PULSE 66; RESP 16; O2SAT 97
[2022-12-21 16:49] VITALS: BP 181/96; PULSE 65; RESP 18
--- NOTE | 2022-12-21 17:08 | PC.NURSE ---
Ashely WARP DYEING VAT TENDER at bedside. pt denies pain at this time. daughter at bedside, brought in dinner for pt
[2022-12-21 22:31] VITALS: BP 149/77; PULSE 75; RESP 22; TEMP 36.4; O2SAT 96
[2022-12-22] VITALS (7 sets, daily range): BP systolic 126–178; BP diastolic 70–92; PULSE 55–73; RESP 16–24; TEMP 36.1–36.7; O2SAT 94–98
[2022-12-22] MEDS: Omeprazole 20 MG CAPSULE.DR PO (05:57)
[2022-12-22 06:05] LABS: Hematocrit 39.4 % (37.0-47.0); Hemoglobin 12.7 g/dl (12.0-16.0); Mean Corpuscular HGB Conc 32.2 g/dl (31.0-35.0); Mean Corpuscular Hemoglobin 28.6 pg (27.0-33.0); Mean Corpuscular Volume 88.7 fL (80.0-98.0); Mean Platelet Volume 8.8 fL (9.4-12.3); Platelet Count 299 X10*3/uL (160-400); Red Blood Count 4.44 X10*6/uL (4.20-5.50); Red Cell Distribution Width 14.1 % (11.0-16.0); White Blood Count 5.7 X10*3/uL (4.8-10.8)
[2022-12-22 06:26] LABS: Anion Gap 12 (12-20); Blood Urea Nitrogen 16 mg/dL (9-16); Calcium 9.5 mg/dL (8.4-10.2); Carbon Dioxide 26 mmol/L (22-29); Chloride 110 mmol/L (96-108); Creatinine Clr Calc Pharmacy 62.7; Estimated Glomerular Filt Rate > 60; Glucose Random 88 mg/dL (60-115); Potassium 4.6 mmol/L (3.3-5.1); Sodium 143 mmol/L (135-145)
[2022-12-22] MEDS: Acetaminophen 325 MG TABLET 650 MG PO (07:33)
[2022-12-22] MEDS: 0.9 % Sodium Chloride Flush 3 ML SYRINGE IVFLUSH ×3 (07:34→20:41)
--- NOTE | 2022-12-22 08:52 | MHC.CM.PN ---
OBS Form: 12/22/22. Lives in multifamily home w/son on first floor, one of her two daughters lives upstairs. Pt. independent, no prev. services or equip., drives self where she needs to go. D/C plan is return home w/son via self transport; [place] [facility] [place] CM to follow.
--- NOTE | 2022-12-22 09:41 | P.PNIM_ITS ---
Subjective Subjective Date of Service: 12/23/22 Review of Systems follow-up abdominal pain and GI bleed Denies any pain or rectal bleeding Physical Exam 2 Vital Signs: Vital Signs: Last Vital Signs Temp 98.1 F 12/22/22 07:15 Pulse 63 12/22/22 07:15 Resp 16 12/22/22 07:15 BP 154/92 H 12/22/22 07:15 Pulse Ox 97 12/22/22 07:15 O2 Del Method Room Air 12/22/22 07:15 BMI result Body Mass Index 24.0 Appearing in no acute distress lung sounds are clear to auscultation heart regular rate rhythm, clear S1, S2 positive bowel sounds, abdomen is soft, nontender neuro patient is alert x3, no focal deficits Objective Data Active Medications Acetaminophen (Acetaminophen 325 Mg Tablet) 650 mg PO Q6H PRN PRN Reason: Pain, Mild (Pain Scale 1-3) Last Admin: 12/22/22 07:33 Dose: 650 mg Documented By: BURT Hydralazine HCl (Hydralazine Hcl 20 Mg/Ml Vial) 10 mg IVPUSH Q4H PRN; Protocol PRN Reason: SBP>190 Lorazepam (Lorazepam 0.5 Mg Tablet) 0.5 mg PO Q8H PRN PRN Reason: anxiety/restlessness Omeprazole (Omeprazole 20 Mg Capsule.Dr) 20 mg PO DAILY@0630 [facility] Last Admin: 12/22/22 05:57 Dose: 20 mg Documented By: SHANNAN Ondansetron HCl (Ondansetron Hcl 4 Mg/2 Ml Vial) 4 mg IVPUSH Q8H PRN PRN Reason: Nausea and Vomiting Oxycodone HCl (Oxycodone Hcl Immed Release 5 Mg Tablet) 5 mg PO Q4H PRN PRN Reason: Pain, Mild (Pain Scale 1-3) Sodium Chloride (0.9 % Sodium Chloride Flush 3 Ml Syringe) [facility] Last Admin: 12/22/22 07:34 Dose: 3 ml Documented By: BURT Labs 12/22/22 05:45 12/22/22 05:45 Labs: Laboratory Results - last 24 hr 12/21/22 12/21/22 12/22/22 13:01 13:38 05:45 MCV 87.7 88.7 MCH 28.4 28.6 MCHC 32.4 32.2 RDW 14.1 14.1 Plt Count 326 299 MPV 8.6 L 8.8 L Immature Gran % (Auto) 0.2 Neut % (Auto) 42.8 L Lymph % (Auto) 44.3 H Petroleum % (Auto) 6.4 Eos % (Auto) 5.2 H Baso % (Auto) 1.1 Lymph # (Auto) 2.8 Petroleum # (Auto) 0.4 Eos # (Auto) 0.3 Baso # (Auto) 0.1 Abs Immat Gran (auto) 0.01 Absolute Neuts (auto) 2.7 Absolute Nucleated RBC 0.000 0.000 Nucleated RBC % (auto) 0.0 0.0 Anion Gap 14 12 Estim Creat Clear Calc 62.7 62.7 Estimated GFR > 60 > 60 Random Glucose 93 88 Calcium 9.8 9.5 Total Bilirubin 0.3 AST 20 ALT 15 Alkaline Phosphatase 60 Total Protein 7.2 Albumin 4.2 Lipase 24 Urine Color Yellow Urine Appearance Cloudy Urine pH 7.0 Ur Specific Albers <= 1.005 Urine Protein Negative Urine Glucose (UA) Negative Urine Ketones Negative Urine Blood Trace H Urine Nitrite Negative Ur Leukocyte Esterase Negative Urine RBC 0-2 Urine WBC 0-5 Ur Squamous Epith Cells 0-2 Urine Bacteria None Seen Hyaline Casts 0-2 Stool Occult Blood POSITIVE Assessment and Plan (1) Abdominal pain: Status: Acute Plan 66 year old women placed on observation with rectal bleeding Acute Rectal bleeding. unspecified normal HH, stool occult positive abd and pelvic CT showing rectocele vs rectal mass recheck HH This evening type and screen and transfuse as necessary PPI GI consult pending Hypertension not on any home medications likely from anxiety and pain monitor DVT prophylaxis with mechanical compression boots due to rectal bleeding Attending Dr. Velasquez Full code Observation Time Spent With Patient Time: Total time managing care of this patient today ____ minutes. Quality Stroke Does the patient have a stroke diagnosis?: No VTE Prior VTE?: No VTE Risk Level:: Medical - moderate - high VTE Device Contraindication: N/A - Device Ordered VTE Drug Contraindication: Treatment Not Indicated
--- NOTE | 2022-12-22 16:45 | P.EN_ITS ---
Event Note Date of Service: 12/22/22 Event Note: GI Consult-History from patient with her daughter, a medical claims analyst, her RN, and the EMR Imp: Based on the current clinical history, her previous colonoscopy findings from earlier in the year with Dr. Blas, her stable Hgb, and her physical exam including a rectal exam today, this seems very c/w some component of IBS and bleeding from her known internal hemorrhoids and/or a fissure. She seems quite stable at the present time and reports no bleeding since , 12/19. She reports previous hemorrhoid surgery with Dr. Bailey and states that she has an appt to see him again on 01/01/2023. Rec: Symptomatic treatment for the known internal hemorrhoids with Preparation H or Anusol suppository. Supplemental fiber with a lot of water for the IBS. F/U with Dr. Bailey as an outpatient as planned. She can also F/U with Dr. Blas for consideration of a repeat colonoscopy if the rectal bleeding remains a persistent problem. She is stable for discharge from my standpoint. D/W patient and her daughter in detail. They are comfortable with this plan. Thanks Time Spent With Patient Time: Total time managing care of this patient today ____ minutes.
[2022-12-23] VITALS: BP 140/83; PULSE 73; RESP 18; TEMP 37.2; O2SAT 100
--- NOTE | 2022-12-23 02:36 | CONS_ITS ---
DATE OF SERVICE: 12/22/2022 REASON FOR CONSULTATION: Rectal bleeding. HISTORY OF PRESENT ILLNESS: This has been obtained with a medical staff manager, from the patient and her daughter, as well as from her RN and the medical record. The patient is a 66-year-old female, who describes at least 1 month of intermittent irregular bowel movements with some frequent loose stools and occasional constipation. She describes 2 episodes of hematochezia with bright red blood in the toilet bowl this past week. Her concern about her bleeding and some lower abdominal discomfort prompted her ER visit and admission yesterday. In reviewing her record, she did have a colonoscopy in May with Dr. Blas. The colonoscopy revealed large internal hemorrhoids and a small hyperplastic polyp, as well as some diverticulosis. There was no evidence of any inflammatory bowel disease. She also had an upper endoscopy on that same day describing some changes and biopsies consistent with a small area of Benítez's esophagus. Biopsies were negative for dysplasia. The patient denies any previous history of bleeding although she has had previous hemorrhoid surgery with Dr. Bailey in the past. Since admission here, she has had no further signs of bleeding. She has been tolerating her diet. She does have some lower abdominal cramping and bloating, but no other abdominal pain. Her hemoglobin has been quite stable from admission level of 13.2 compared to 12.8 back in September. Her hemoglobin yesterday afternoon was 13.3 and this morning was 12.7. Again, she has had no further signs of bleeding here in the hospital. Her vital signs have been stable and she has been afebrile. She denies any significant heartburn, dysphagia, nor vomiting. She has not noticed any jaundice nor significant weight loss at home. She denies any known family history of colorectal cancer nor inflammatory bowel disease. CURRENT MEDICATIONS: In the hospital include hydralazine p.r.n., lorazepam p.r.n., omeprazole, Zofran p.r.n., oxycodone p.r.n. PAST MEDICAL HISTORY: She describes a history of hypertension at home but does not use any medication for that. She denies any history of heart disease, diabetes, stroke, nor lung disease. Her only surgeries are hemorrhoids and tubal ligation. EGD and Colonoscopy as above. SOCIAL HISTORY: She denies tobacco nor alcohol. FAMILY HISTORY: Noncontributory. PHYSICAL EXAMINATION: GENERAL: The patient is a pleasant, alert, comfortable-appearing female in no distress. VITAL SIGNS: She has been afebrile. SKIN: Warm and dry. Nonjaundiced. Anicteric sclerae. NECK: Supple without lymphadenopathy. CHEST: Clear. CARDIAC: Normal S1, S2. ABDOMEN: Soft, nondistended. Normal bowel sounds and without any focal mass or tenderness. EXTREMITIES: Without edema. RECTAL: Reveals some minimal external hemorrhoidal tissue but without any tenderness. A digital exam is slightly tender. There is no palpable mass. There is no blood on the examining glove. LABORATORIES: She did have a CT scan on admission that describes a question of rectocele versus mass in the rectum. There was some diverticulosis but without sign of diverticulitis. CBC as above. Normal electrolytes. BUN 16, creatinine 0.7. Normal LFTs and lipase. IMPRESSION: Given the patient's clinical history of irregular bowel movements, her good clinical appearance, her colonoscopy findings from earlier this year, her stable hemoglobin, and today's examination including the rectal exam, I suspect her bleeding was secondary to perianal disease such as either internal hemorrhoids or a fissure. I did not palpate a rectal mass and given the negative colonoscopy, I suspect this is not present. PLAN: At this point given her excellent clinical appearance, I do not think she needs a repeat colonoscopy at this time. Since she is doing well, I think she can be discharged either today or certainly by tomorrow as long as things remain stable. I would recommend symptomatic treatment of the internal hemorrhoids with either Preparation-H or Anusol suppository. I would also recommend the addition of a supplemental fiber such as Metamucil with plenty of fluids to treat the irritable bowel syndrome and hopefully help regulate her bowel pattern. Of note, the patient advised me that she has an appointment to see Dr. Bailey on January 01. She made that appointment herself prior to this admission because she thought she was having problems from her hemorrhoids. I did advise her to certainly keep that appointment for his evaluation. We did review that if her bleeding remains a persistent problem, then she can follow up with Dr. Blas as well for consideration of a repeat colonoscopy despite having had 1 just earlier this year. This has all been discussed in detail with the patient and her daughter. They are comfortable with this plan. Thanks for the consultation. MD RENNY Dejesus/NATHAN / [phone] MTDD
[2022-12-23 03:13] VITALS: BP 145/72; PULSE 53; RESP 16; TEMP 36.9; O2SAT 92
[2022-12-23] MEDS: Omeprazole 20 MG CAPSULE.DR PO (05:52)
[2022-12-23 08:00] VITALS: BP 144/76; PULSE 65; RESP 20; TEMP 36.7; O2SAT 96
[2022-12-23] MEDS: 0.9 % Sodium Chloride Flush 3 ML SYRINGE IVFLUSH (08:05)
--- NOTE | 2022-12-23 08:31 | PM.DS ---
DS: Providers Provider Date of Service: 12/23/22 Date of admission: 12/21/22 16:36 Primary care physician: Antonette Stanley MD Consults: 12/21/22 15:39 Consult to Gastroenterology Routine Consulting Provider: Kostas Florence Reason for consultation: GI Bleed DS: Diagnosis Discharge Diagnosis (1) Abdominal pain: Status: Acute DS: Summary Hospital Course Hospital Course: HP as per admitting provider. 66-year-old woman presenting to the ER with complaints of 2 weeks of left lower abdominal pain and bright red blood per rectum. Patient reported some nausea without fever or vomiting. she was having frequent loose stools with bright red blood in it. She denied any recent illness, travel, sick contacts, trauma or injury. In the ER, her H&H is within normal range, all other labs within acceptable limits, vital signs stable although blood pressure is mildly elevated. Abdominal CT showing pelvic soft tissue mass below the diaphragm, question of rectocele versus rectal mass. She was not given any medications in the ER, she will be placed on observation for further management of rectal bleeding and abnormal abdominal CT findings. 66-year-old woman treated for acute rectal bleeding likely secondary to hemorrhoids. Seen evaluated by Gastroenterology with no recommendation for intervention at this time. Patient's H&H had remained stable and she never required any blood transfusion. She denied any further rectal bleeding while inpatient. She has an appointment with a general surgeon for follow-up regarding possible hemorrhoidectomy. Hypertension. Blood pressure remained stable during hospitalization currently not on any medications can follow-up with her primary care provider for initiation of any medications Time Spent with Patient Time attestation: Total time managing care of this patient today ____ minutes. Discharge coordination time: Greater than 30 minutes Quality: Safe Use of Opioids Does Pt have an Active Cancer Diagnosis on the Problem List?: No Quality: Stroke Does the patient have a stroke diagnosis?: No Physical Exam Vital Signs: Vital Signs: Last Vital Signs Temp 98.0 F 12/23/22 08:00 Pulse 65 12/23/22 08:00 Resp 20 12/23/22 08:00 BP 144/76 H 12/23/22 08:00 Pulse Ox 96 12/23/22 08:00 O2 Del Method Room Air 12/23/22 08:00 BMI result Body Mass Index 24.0 Discharge Plan Discharge Anticipated Discharge Date/Time: 12/23/22 07:17 Patient Disposition: Home, Self-Care Discharge Diagnosis: Rectal bleeding Referrals: Amauri Bailey MD [Physician] - 1 Week Antonette Adam MD [Primary Care Provider] - 1 Week Discharge Medications: No Action No Known Home Meds Discharge Orders: Discharge Order (Routine); Ordered 12/23/22 Ordered By: Ashely Lovell Diet: Advance to usual diet Activity on Discharge: As tolerated Stand Alone Forms: Patient Portal Discharge page Care Plan Goals: no further episodes of rectal bleeding Health Concerns: rectal bleeding Plan of Treatment: Follow-up with primary care provider as needed Take all medications as prescribed Assessment: see discharge summary Discharge Date/Time: 12/23/22 10:28
--- NOTE | 2022-12-23 08:57 | MHC.CM.PN ---
Patient has been medically cleared for dc to home today, self care.
[2022-12-23 10:43] LABS: MANUAL DIFF FLAG NO
[2022-12-23 10:45] LABS: Basophils Absolute Auto 0.1 X10*3/uL (0.0-0.2); Basophils Percent Auto 1.1 % (0-2); Eosinophils Absolute Auto 0.3 X10*3/uL (0.0-0.4); Eosinophils Percent Auto 3.9 % (0-4); Hematocrit 41.6 % (37.0-47.0); Hemoglobin 13.5 g/dl (12.0-16.0); Imm Gran Abs Auto 0.03 X10*3/uL (0.00-0.03); Imm Gran Pct Auto 0.5 % (0.0-0.4); Lymphocytes Absolute Auto 2.8 X10*3/uL (1.2-4.9); Lymphocytes Percent Auto 41.8 % (20-40); Mean Corpuscular HGB Conc 32.5 g/dl (31.0-35.0); Mean Corpuscular Hemoglobin 28.8 pg (27.0-33.0); Mean Corpuscular Volume 88.7 fL (80.0-98.0); Mean Platelet Volume 8.9 fL (9.4-12.3); Monocytes Absolute Auto 0.4 X10*3/uL (0.1-1.2); Neutrophils Absolute Auto 3.1 x10*3/uL (2.0-8.3); Neutrophils Percent Auto 46.7 % (45-73); Platelet Count 335 X10*3/uL (160-400); Red Blood Count 4.69 X10*6/uL (4.20-5.50); Red Cell Distribution Width 14.3 % (11.0-16.0); White Blood Count 6.7 X10*3/uL (4.8-10.8)
[2022-12-23 10:59] LABS: Anion Gap 13 (12-20); Blood Urea Nitrogen 18 mg/dL (9-16); Calcium 9.6 mg/dL (8.4-10.2); Carbon Dioxide 25 mmol/L (22-29); Chloride 109 mmol/L (96-108); Creatinine Clr Calc Pharmacy 53.1; Estimated Glomerular Filt Rate > 60; Glucose Random 101 mg/dL (60-115); Potassium 3.6 mmol/L (3.3-5.1); Sodium 143 mmol/L (135-145)
== END 2022-12-23 10:28 | disposition home or self-care (01) ==
LOC: HO.ED 15:34 → HO.EDOVER 16:37 → HO.IMC 18:41 → HO.S3 12-22 17:25 → HO.IMC 12-22 22:24
PROVIDERS: Physician Assistant; Admitting Provider Nurse Practitioner Acute Care; Emergency Provider Emergency Medicine; PCP Internal Medicine; Visit Provider Nurse Practitioner Acute Care
DX: K62.5 Hemorrhage of anus and rectum (principal); R10.32 Left lower quadrant pain; M54.9 Dorsalgia, unspecified; K59.00 Constipation, unspecified; N20.0 Calculus of kidney; E78.5 Hyperlipidemia, unspecified; K64.8 Other hemorrhoids; R11.0 Nausea
CPT/HCPCS: 36415; 74176; 80048; 80053; 81001; 82272; 83690; 85014; 85018; 85025; 85027; 99222; 99284

== ENCOUNTER → 2022-12-21 16:36 | Outpatient (BNV) | payer MEDICARE, SELFPAY | PROVIDERS: Admitting Provider Nurse Practitioner Acute Care; Emergency Provider Emergency Medicine; PCP Internal Medicine; Visit Provider Nurse Practitioner Acute Care | DX: R10.32 Left lower quadrant pain (principal) | CPT/HCPCS: 99223; 99232; 99239 ==

== ENCOUNTER 2022-12-31 09:59 | Outpatient (AMB) | payer MEDICARE, SELFPAY ==
--- NOTE | 2022-12-31 10:09 | MHC.OFFVIS ---
Intake Vital Signs 12/31/22 10:27 Height 4 ft 11 in Weight 121 lb 4 oz BMI 24.5 BP 176/93 H Blood Pressure Location Lt brachial Position Sitting Pulse 80 Intake Visit Reasons: hemorrhoids Intake Note: Patient is seen in office for re-evaluation of hemorrhoids. Patient c/o: recurrent bleeding in stool and toilet bowl for the past 2 weeks, went to ED, admits to constipation on and off All Source Intelligence Required: Yes All Source Intelligence Language: Assistant Health Educator Name: Maylin GONZALEZ Information Interpreted: non-clinical & clinical Technical Data Analyst: Technical Data Analyst Present Accompanied by: Self / Same As Patient Allergies oxycodone [From PERCOCET] Allergy (Intermediate, Verified 12/31/22 10:16) DIFF BREATHING Medication List - Last Reconciled 12/31/22 by Amauri Bailey MD No Known Home Meds HPI HPI Comments History of Present Illness Details 67-year-old female patient returning with a 2 week history of complaints of rectal pain and bleeding. This began after a period of constipation requiring straining to have a bowel movement. She now reports bleeding with bowel movement and pain while having the bowel movement. She was evaluated in the emergency department and possibility of a bleeding hemorrhoid identified. She is now taking fiber in her diet and drinking plenty of water which does seem to help her pass or stool. 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 She feels her symptoms are similar to then. FORMERLY [facility], [facility]–1983 Medical History Dermatochalasis of eyelid Excessive subcutaneous fat Myositis Protrusion of lumbar intervertebral disc Dyslipidemia Hair loss GERD (gastroesophageal reflux disease) High cholesterol Surgical History History of colonoscopy History of esophagogastroduodenoscopy History of removal of cyst History of surgery History of hemorrhoidectomy History of tubal ligation Family History Father Diabetes Hypertension Mother Hypertension Diabetes Lung cancer Skin cancer Arthritis Paternal Aunt Stroke Social History Household Members: None Housing: House Are you a primary director of managed care to a significant other at home: No Do you presently have visiting nurse or other home services: No Alcohol intake: current Alcohol intake frequency: holidays/special occasions only Alcohol type: wine Patient Tobacco Use Status: Former Tobacco user Quit Date: 2000 Tobacco use type: Cigarette e-Cigarette/Vaping Use: Never Used Second Hand Smoke Exposure: No Advance Directives Date on File: 09/23/22 service: No Current occupational status: employed 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 Current occupational exposures/hazards: No Cognitive needs: No Hearing needs: No Vision needs: No Review of Systems Const Denies chills, Denies fever(s), Denies headache(s) and Denies poor appetite ENT Denies dizziness and Denies headache(s) Card Denies chest pain, Denies rapid heart rate, Denies palpitations and Denies slow heart rate Resp Denies chest congestion, Denies cough, Denies pain on inspiration and Denies wheezing GI Reports abdominal pain, Denies bloating, Reports hematochezia, Denies change in stool character, Reports constipation, Denies diarrhea, Denies nausea, Denies vomiting and Denies hematemesis Musc Denies back pain, Denies arthralgias, Denies joint swelling and Denies numbness Skin/Breast Denies change in pigmentation, Denies erythema and Denies rash Neuro Denies dizziness, Denies headache(s) and Denies numbness Psych Denies anxiety and Denies depression Endo Denies palpitations [place]/Lymph Denies easy bleeding, Denies easy bruising and Denies lymphadenopathy Aller/Immun Denies wheezing Physical Exam Vital Signs: Last Vital Signs Pulse 80 12/31/22 10:27 BP 176/93 H 12/31/22 10:27 BMI result Body Mass Index 24.5 Const General: no acute distress Nutritional Appearance: well nourished Orientation/consciousness: patient oriented x3 Limitations: no limitations Resp Effort & Inspection: normal respiratory effort, no audible wheezes, no cough and no respiratory distress GI Other: Rectal examination: External examination with no abscess, fistula, thrombosed hemorrhoid or prolapsing internal hemorrhoid. Digital rectal examination: Tenderness in the posterior wall with evidence of sphincter hypertrophy. Able to pass finger into rectal vault due to pain Anoscopy: Exam deferred due to pain. Inspection: Yes normal to inspection Palpation (GI): Soft to palpation, nontender, no guarding and not rigid Skin Other: Warm, dry, no rash Neuro General: patient oriented x3 Extrem Other: No edema Assessment & Plan Assessment & Plan (1) Anal fissure: Code(s): K60.2 - Anal fissure, unspecified Plan 67-year-old female patient presenting with complaints of pain and bleeding with bowel movements. 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 I recommended an examination under anesthesia and possible lateral internal sphincterotomy. After discussion of the procedure, risks, and alternatives, she consents to the surgery. Coding Level of Care Code Est Pt Level 4 (50006) Diagnoses Anal fissure K60.2
[2022-12-31 10:27] VITALS: BP 176/93; PULSE 80; BMI 24.5
== END 2022-12-31 10:29 | disposition home or self-care (01) ==
PROVIDERS: PCP Internal Medicine; Visit Provider Surgery
DX: K60.2 Anal fissure, unspecified (principal)
CPT/HCPCS: 99214

== ENCOUNTER → 2022-12-31 09:59 | Outpatient (BNVA) | payer MEDICARE, SELFPAY | PROVIDERS: PCP Internal Medicine; Visit Provider Surgery | DX: K60.2 Anal fissure, unspecified (principal) | CPT/HCPCS: 99212 ==

== ENCOUNTER 2023-01-31 12:35 | Outpatient (REF) | payer MEDICARE, OTHER, SELFPAY ==
--- NOTE | ~2023-01-31 | US_ITS ---
EXAMINATION: US PELVIS CLINICAL INFORMATION: Pelvic and perineal pain Postmenopausal COMPARISON: Pelvic ultrasound 02/01/2021 TECHNIQUE: Ultrasound of the pelvis is performed using both transabdominal and transvaginal transducers along with Doppler. Transvaginal imaging is performed due to inadequate visualization transabdominally. FINDINGS: Uterus: The uterus is anteverted and measures 8.1 x 2.8 x 4.1 cm. 0.6 x 0.5 x 0.6 cm intramural fibroid in the posterior body of the uterus previously measured 0.6 x 0.4 x 0.6 cm. A 0.2 cm calcification is seen at the myometrial-endometrial junction. The endometrial thickness is 0.2 cm. There is a small amount of fluid within the endometrial cavity. Adnexa: Both ovaries are visualized. There is normal color flow to the adnexa. There is no ovarian torsion. There is no pelvic ascites or fluid collection. Right ovary measures 1.5 x 1.0 x 1.3 cm. Volume 1.0 mL. The left ovary is not seen. US/US pelvic and transvaginal IMPRESSION: 1. 0.6 cm intramural fibroid in the posterior body of the uterus without significant interval change. 2. Normal right ovary. The left ovary is not seen.
== END 2023-01-31 12:36 | disposition home or self-care (01) ==
LOC: HO.US 12:35
PROVIDERS: PCP Internal Medicine; Visit Provider Advanced Practice Midwife
DX: R10.2 Pelvic and perineal pain (principal)
CPT/HCPCS: 76830; 76856

== ENCOUNTER 2023-02-17 15:54 | Outpatient (AMB) | payer MEDICARE, SELFPAY ==
--- NOTE | 2023-02-17 15:58 | MHC.PC.OV ---
Vital Signs 02/17/23 16:00 02/17/23 16:41 Height 4 ft 11 in Weight 118 lb BMI 23.8 BP 182/102 H 180/100 H Blood Pressure Location Lt brachial Lt brachial Position Sitting Sitting Intake Visit Reasons: Annual Exam Intake Note: Patient here for an annual physical exam Manager Furniture Required: No Accompanied by: Self / Same As Patient Allergies oxycodone [From PERCOCET] Allergy (Intermediate, Verified 02/17/23 16:12) DIFF BREATHING Medication List - Last Reconciled 02/17/23 by Antonette Stanley MD No Known Home Meds Tobacco use date assessed: 05/30/22 Fall risk assessment: No Falls in past year Last assessed Fall Risk: 02/17/23 Dental Screening Dental Screen Date: 02/17/23 Did you have a dental visit in the last 12 months?: Yes Did you have a dental problem in the last 6 months where you did not have access to dental care?: No Was dental information given to patient?: Patient has dentist HPI HPI Comments History of Present Illness Details This is a 67-year-old female that comes for her physical exam. Last colonoscopy was 2022. Last Pap smear 2021. Last mammogram was 2020 and she declines having a mammogram at the moment. No chest pain or shortness of breath. Blood pressure elevated with no symptoms and I will restart her on losartan. Blood pressure goal is equal or less than 130/80. Complains heartburn and abdominal gas and will goal Gastroenterology for an appointment. Blood pressure will be recheck in 3 weeks by nurse navigator. [facility] Medical History Dermatochalasis of eyelid Excessive subcutaneous fat Myositis Protrusion of lumbar intervertebral disc Dyslipidemia Hair loss GERD (gastroesophageal reflux disease) High cholesterol Surgical History History of colonoscopy History of esophagogastroduodenoscopy History of removal of cyst History of surgery History of hemorrhoidectomy History of tubal ligation Family History Father Diabetes Hypertension Mother Hypertension Diabetes Lung cancer Skin cancer Arthritis Paternal Aunt Stroke Household Members: None Housing: House Are you a primary medicare specialist to a significant other at home: No Do you presently have visiting nurse or other home services: No Alcohol intake: current Alcohol intake frequency: holidays/special occasions only Alcohol type: wine Patient Tobacco Use Status: Former Tobacco user Quit Date: 2000 Tobacco use type: Cigarette e-Cigarette/Vaping Use: Never Used Second Hand Smoke Exposure: No Advance Directives Date on File: 09/23/22 service: No Current occupational status: employed 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 Kostas Norris, Mana Garcia, Jeff Blanco and colleagues, with an educational solitario from [employer]. Review of Systems Const All systems reviewed & are unremarkable except as noted in HPI and below Eyes Reports no additional complaints, Denies change in vision and Denies other visual disturbances Card Denies chest pain at rest, Denies chest pain with activity, Denies edema, Denies irregular heart rhythm, Denies claudication, Denies dyspnea, Denies dyspnea on exertion, Denies orthopnea, Denies paroxysmal nocturnal dyspnea and Denies slow heart rate Resp Denies cough, Denies dyspnea and Denies dyspnea on exertion GI Denies abdominal pain, Denies change in bowel habits, Denies excessive flatus, Denies nausea and Denies vomiting Denies urinary incontinence, Denies urinary hesitancy and Denies urinary urgency Musc Denies abnormal gait, Denies atrophy, Denies deformity and Denies limited range of motion Skin/Breast Denies bleeding lesions, Denies changing lesions and Denies rash Neuro Denies abnormal gait, Denies confusion and Denies lack of coordination Psych Denies confusion Physical exam (Primary Care) Vital Signs: Last Vital Signs BP 182/102 H 02/17/23 16:00 BMI result Body Mass Index 23.8 Tobacco/Smoking Status: Tobacco use Status Tobacco use date assessed 05/30/22 02/17/23 16:08 Patient Tobacco Use Status Former Tobacco user 02/17/23 16:08 Tobacco use type Cigarette 02/17/23 16:08 e-Cigarette/Vaping Use Never Used 02/17/23 16:08 Thrive Assessment: Date of Thrive Assessment Date Thrive assessed 12/22/22 02/17/23 16:08 Const General: No confusion Orientation/consciousness: patient oriented x3 and No confusion Eyes General: appearance normal, both eyes and all related structures Eyelids: Yes eyelids normal Conjunctivae: conjunctivae normal Neck Neck: Yes normal visual inspection and Yes supple Resp Effort & Inspection: normal respiratory effort Auscultation: clear to auscultation bilaterally Cardio Jugular venous distension: no JVD Rate: regular rate Rhythm: regular rhythm Heart sounds: S1 normal heart sound present and S2 normal heart sound present GI Inspection: Yes normal to inspection Palpation (GI): Soft to palpation and nontender Auscultation: normal bowel sounds Skin General skin exam: no rashes or lesions noted Neuro General: patient oriented x3, no focal motor deficits and No confusion Extrem General: Yes full ROM Psych Appearance: grossly normal Office Procedures Flu Questionnaire Does the patient have a severe egg allergy?: No Immunizations flu vacc [id number] 6mos up(PF) 60 mcg(15 mcgx4)/0.5 mL IM syringe Performing Provider: Antonette Stanley MD [facility] Documented (not given) by: LISA Neil on 02/17/23 16:10 Reason Not Given: Patient Refused Assessment and Plan Assessment & Plan (1) Physical exam: Code(s): Z00.00 - Encounter for general adult medical examination without abnormal findings Plan: Repeat in a year. Orders: Orders Influenza [id number] Immunization Today Z23 - Encounter for immunization H pylori Ag Stool Today R19.7 - Diarrhea, unspecified Medications: New simethicone (Gas Relief (simethicone)) 125 mg PO BID PRN 60 caps 2RF abdominal distention 30 days omeprazole 20 mg PO DAILY 30 caps 3RF 30 days losartan 25 mg PO DAILY 90 tabs 0RF 90 days I10 - Essential (primary) hypertension Coding Level of Care Code Est Pt Prev Care >65y(61851) Diagnoses Physical exam Z00.00 Time Spent (min) 31
[2023-02-17 16:00] VITALS: BP 182/102; BMI 23.8
[2023-02-17 16:41] VITALS: BP 180/100
== END 2023-02-17 16:29 | disposition home or self-care (01) ==
PROVIDERS: Visit Provider Internal Medicine
DX: Z00.00 Encounter for general adult medical examination without abnormal findings (principal)
CPT/HCPCS: 99397

== ENCOUNTER 2023-02-18 13:05 | Outpatient (AMB) | payer MEDICARE, SELFPAY ==
[2023-02-18 13:14] VITALS: BP 156/90; BMI 23.8
--- NOTE | 2023-02-18 13:14 | MHC.OFFVIS ---
Intake Vital Signs 02/18/23 13:14 Height 4 ft 11 in Weight 118 lb BMI 23.8 BP 156/90 H Intake Visit Reasons: Ultrasound Results Recruiting Assistant Required: Yes Recruiting Assistant Language: Chemical Equipment Sales Engineer Name: Rosalina GONZALEZ Information Interpreted: non-clinical & clinical Allergies oxycodone [From PERCOCET] Allergy (Intermediate, Verified 02/18/23 13:14) DIFF BREATHING HPI HPI Comments History of Present Illness Details Patient is here today for her test results of her pelvic ultrasound due to left lower quadrant pain. History of small fibroid. No postmenopausal bleeding. She reports history of recent rectal bleeding and has a follow-up with Dr. Fan hua. [facility] Medical History Dermatochalasis of eyelid Excessive subcutaneous fat Myositis Protrusion of lumbar intervertebral disc Dyslipidemia Hair loss GERD (gastroesophageal reflux disease) High cholesterol Surgical History History of colonoscopy History of esophagogastroduodenoscopy History of removal of cyst History of surgery History of hemorrhoidectomy History of tubal ligation Family History Father Diabetes Hypertension Mother Hypertension Diabetes Lung cancer Skin cancer Arthritis Paternal Aunt Stroke Social History Household Members: None Housing: House Are you a primary children's zoo caretaker to a significant other at home: No Do you presently have visiting nurse or other home services: No Alcohol intake: current Alcohol intake frequency: holidays/special occasions only Alcohol type: wine Patient Tobacco Use Status: Former Tobacco user Quit Date: 2000 Tobacco use type: Cigarette e-Cigarette/Vaping Use: Never Used Second Hand Smoke Exposure: No Advance Directives Date on File: 09/23/22 service: No Current occupational status: employed 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 Orientation/consciousness: patient orientated x 3. Results Reviewed Results Reviewed: [address] [address] Ultrasound Report Signed Patient: Fior Bravo MR#: [id number] : 1955 Acct:[id number] Age/Sex: 67 / F ADM Date: 01/31/23 Loc: HO.US Attending Dr: Laura Bowles CNM Ordering Physician: Laura Bowles CNM Date of Service: 01/31/23 Procedure(s): US pelvic and transvaginal Accession Number(s): [id number] cc: Laura Bowles CNM; Antonette Adam MD~ EXAMINATION: US PELVIS CLINICAL INFORMATION: Pelvic and perineal pain Postmenopausal COMPARISON: Pelvic ultrasound 02/01/2021 TECHNIQUE: Ultrasound of the pelvis is performed using both transabdominal and transvaginal transducers along with Doppler. Transvaginal imaging is performed due to inadequate visualization transabdominally. FINDINGS: Uterus: The uterus is anteverted and measures 8.1 x 2.8 x 4.1 cm. 0.6 x 0.5 x 0.6 cm intramural fibroid in the posterior body of the uterus previously measured 0.6 x 0.4 x 0.6 cm. A 0.2 cm calcification is seen at the myometrial-endometrial junction. The endometrial thickness is 0.2 cm. There is a small amount of fluid within the endometrial cavity. Adnexa: Both ovaries are visualized. There is normal color flow to the adnexa. There is no ovarian torsion. There is no pelvic ascites or fluid collection. Right ovary measures 1.5 x 1.0 x 1.3 cm. Volume 1.0 mL. The left ovary is not seen. US/US pelvic and transvaginal IMPRESSION: 1. 0.6 cm intramural fibroid in the posterior body of the uterus without significant interval change. 2. Normal right ovary. The left ovary is not seen. Dictated By: Emma Sanchez MD Assessment & Plan Assessment & Plan (1) Encounter to discuss test results: Code(s): Z71.2 - Person consulting for explanation of examination or test findings Plan: Discussed ultrasound findings small fibroid. Comparison study from 2020. Can evaluate yearly intervals unless there is any post menopausal bleeding or other changes to indicate sooner evaluation. All of her questions and concerns were addressed to the best of my ability and shared decision making. She is agreeable to the plan of care. Follow-up with Dr. Chavira for rectal bleeding. (2) Fibroid: Code(s): D21.9 - Benign neoplasm of connective and other soft tissue, unspecified Coding Level of Care Code Est Pt Level 3 (08866) Diagnoses Encounter to discuss test results Z71.2 Fibroid D21.9
== END 2023-02-18 13:56 | disposition home or self-care (01) ==
LOC: HO.HWS 13:06
PROVIDERS: PCP Internal Medicine; Visit Provider Advanced Practice Midwife
DX: Z71.2 Person consulting for explanation of examination or test findings (principal); D21.9 Benign neoplasm of connective and other soft tissue, unspecified
CPT/HCPCS: 99213

== ENCOUNTER → 2023-02-18 13:05 | Outpatient (BNVA) | payer MEDICARE, SELFPAY | PROVIDERS: PCP Internal Medicine; Visit Provider Advanced Practice Midwife | DX: Z71.2 Person consulting for explanation of examination or test findings (principal); D21.9 Benign neoplasm of connective and other soft tissue, unspecified | CPT/HCPCS: 99212 ==

== ENCOUNTER 2023-03-11 15:35 | Outpatient (REF) | payer MEDICARE, SELFPAY ==
[2023-03-12 10:18] LABS: Rubeola IgG (Measles) >300.00 AU/mL
== END 2023-03-11 15:36 | disposition home or self-care (01) ==
LOC: HO.LAB 15:35
PROVIDERS: PCP Internal Medicine; Visit Provider Internal Medicine
DX: Z01.84 Encounter for antibody response examination (principal)
CPT/HCPCS: 36415; 86735; 86762; 86765

== ENCOUNTER 2023-05-07 13:24 | Outpatient (AMB) | payer MEDICARE, MEDICAID, SELFPAY ==
--- NOTE | 2023-05-07 14:04 | A.OFFVIS_ITS ---
Intake Vital Signs 05/07/23 14:05 Height 4 ft 11 in Weight 120 lb BMI 24.2 BP 166/86 H Blood Pressure Location Rt brachial Position Sitting Pulse 83 Pulse Source Monitor Intake Visit Reasons: Wolfe esophagus Intake Note: Patient states she is having occasional stomach pain and no more nausea. 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 04/02/22: Previously Dr Soto's patient. EGD 2019: Irregular Z line and a few islands of columnar mucosa. Bx without metaplasia but BE noted on Wats. Colonoscopy reportedly in 2014 in [place] - had 2 polyps per her report. Currently complaints of occasional abd pain which she attributes to constipation that gets relieved with stool softeners. Also reports occasional rectal bleeding on wiping. CBC reviewed and normal H/H. No fam hx of colon cancer or advanced colon polyps. 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 * Internal hemorrhoids * Diverticulosis Path: A.? EG junction, biopsy: - Wolfe esophagus with background moderate chronic active inflammation. - No dysplasia seen. - Squamous mucosa within normal limits. B.? Esophagus, 31 cm, biopsy: - Cardiac-type mucosa with moderate chronic inactive inflammation; no intest inal metaplasia seen. - Squamous epithelium within normal limits. C.? Colon, sigmoid, polypectomy:? Colonic mucosa with mild surface hyperplastic changes. WATS-3D: Wolfe's without dysplasia. 09/13/22: Seen with live soda drier feeder. No acute gastrointestinal complaints. Here to review EGD/colo findings which were discussed in detail. She had stopped taking PPI as she does not get heartburn anymore. 05/07/23: Pt seen in office for abd pain and follow up after hospitalisation in Dec. was noted to have rectal bleeding. 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 However, patient preferred to hold off EUA at that time, and today reports normalization of her bowel habits as well as resolution of rectal bleeding. However, reports that in the last 3 months has intermittently noted black stools. This is not associated with any abdominal pain, nausea, vomiting, change in appetite. No lightheadedness or dizziness. Does report taking Pepto- Bismol occasionally. Also brings up frequent bowel movements every day. Goes at least 3 to 4 times a day. Stools are still formed and brown. Previously used to have constipation. Medications reviewed, and is on Pepcid complete which contains mac oxide, as well as taking magnesium supplements separately. Has Wolfe's without dysplasia, and was recommended to take omeprazole daily, however patient reported significant nausea with the medication and therefore self discontinued. [facility] Medical History Dermatochalasis of eyelid Excessive subcutaneous fat Myositis Protrusion of lumbar intervertebral disc Dyslipidemia Hair loss GERD (gastroesophageal reflux disease) High cholesterol Surgical History History of colonoscopy History of esophagogastroduodenoscopy History of removal of cyst History of surgery History of hemorrhoidectomy History of tubal ligation Family History Father Diabetes Hypertension Mother Hypertension Diabetes Lung cancer Skin cancer Arthritis Paternal Aunt Stroke Social History Household Members: None Housing: House Are you a primary childcare teacher to a significant other at home: No Do you presently have visiting nurse or other home services: No Alcohol intake: current Alcohol intake frequency: holidays/special occasions only Alcohol type: wine Patient Tobacco Use Status: Former Tobacco user Quit Date: 2000 Tobacco use type: Cigarette e-Cigarette/Vaping Use: Never Used Second Hand Smoke Exposure: No Advance Directives Date on File: 09/23/22 service: No Current occupational status: employed 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 Current occupational exposures/hazards: No Cognitive needs: No Hearing needs: No Vision needs: No Physical Exam Vital Signs: Last Vital Signs Pulse 83 05/07/23 14:05 BP 166/86 H 05/07/23 14:05 BMI result Body Mass Index 24.2 Const General: cooperative and healthy appearing Orientation/consciousness: patient oriented x3 Resp Effort & Inspection: normal respiratory effort GI Inspection: Yes normal to inspection Skin General skin exam: no rashes or lesions noted Neuro General: patient oriented x3 and gait normal Psych Appearance: grossly normal Assessment & Plan Assessment & Plan (1) 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 Black stools: Has noticed them intermittently over the past 3 months. Likely in the setting of occasional Pepto-Bismol use. However, will check a CBC to rule out GI bleed. 2. Diarrhea: Likely in the setting of magnesium containing supplements. Recommended to discontinue these, and increase fiber intake. 3. Nondysplastic wolfe's esophagus. Repeat EGD recommended in 2027. Pt was counseled that due to intestinal metaplasia, it is not surprising that she does not get the subjective feeling of pyrosis however indefinite PPI use is recommended to avoid progression of BE. Since has intolerance to omeprazole, will switch to pantoprazole 20 mg once daily Follow-up contingent on results of CBC Orders: Orders Complete Blood Count no Diff Today R10.9 - Unspecified abdominal pain Medications: New pantoprazole 20 mg PO DAILY 90 tabs 1RF Discontinued omeprazole Discontinued Reason: Duplicate 20 mg PO DAILY 30 days 30 caps 3RF Coding Level of Care Code Est Pt Level 4 (39677) Diagnoses Wolfe's esophagus without dysplasia K22.70 Wolfe's esophagus type: without dysplasia Frequent bowel movements R19.4
[2023-05-07 14:05] VITALS: BP 166/86; PULSE 83; BMI 24.2
== END 2023-05-07 16:27 | disposition home or self-care (01) ==
PROVIDERS: PCP Internal Medicine; Visit Provider Internal Medicine
DX: K22.70 Barrett's esophagus without dysplasia (principal); R19.4 Change in bowel habit
CPT/HCPCS: 99214

== ENCOUNTER → 2023-05-07 13:24 | Outpatient (BNVA) | payer MEDICARE, MEDICAID, SELFPAY | PROVIDERS: PCP Internal Medicine; Visit Provider Internal Medicine | DX: K22.70 Barrett's esophagus without dysplasia (principal); R19.4 Change in bowel habit | CPT/HCPCS: 99212 ==

== ENCOUNTER 2023-05-08 15:50 | Outpatient (REF) | payer MEDICARE, MEDICAID, SELFPAY ==
[2023-05-08 17:45] LABS: Hematocrit 37.5 % (37.0-47.0); Hemoglobin 12.4 g/dl (12.0-16.0); Mean Corpuscular HGB Conc 33.1 g/dl (31.0-35.0); Mean Corpuscular Hemoglobin 29.1 pg (27.0-33.0); Platelet Count 314 X10*3/uL (160-400); Red Blood Count 4.26 X10*6/uL (4.20-5.50); Red Cell Distribution Width 14.8 % (11.0-16.0); White Blood Count 7.2 X10*3/uL (4.8-10.8)
== END 2023-05-08 15:51 | disposition home or self-care (01) ==
LOC: HO.LAB 15:50
PROVIDERS: Visit Provider Internal Medicine
DX: R10.9 Unspecified abdominal pain (principal)
CPT/HCPCS: 36415; 85027

== ENCOUNTER 2023-06-19 14:26 | Outpatient (AMB) | payer MEDICARE, SELFPAY ==
--- NOTE | 2023-06-19 14:31 | MHC.PC.OV ---
Vital Signs 06/19/23 14:32 Height 4 ft 11 in Weight 121 lb BMI 24.4 BP 140/90 H Blood Pressure Location Lt brachial Position Sitting Intake Visit Reasons: bp Intake Note: Patient here for a follow up BP Rn Cardiology Required: No Accompanied by: Self / Same As Patient Allergies oxycodone [From PERCOCET] Allergy (Intermediate, Verified 06/19/23 15:07) DIFF BREATHING Medication List - Last Reconciled 06/19/23 by Antonette Stanley MD blood pressure monitor As directed losartan 25 mg PO DAILY 90 days pantoprazole 20 mg PO DAILY simethicone (Gas Relief (simethicone)) 125 mg PO BID PRN 30 days Tobacco use date assessed: 06/19/23 Fall risk assessment: No Falls in past year Last assessed Fall Risk: 06/19/23 Dental Screening Dental Screen Date: 06/19/23 Did you have a dental visit in the last 12 months?: No Did you have a dental problem in the last 6 months where you did not have access to dental care?: No Was dental information given to patient?: Patient has dentist HPI HPI Comments History of Present Illness Details This is a 67-year-old female with hypertension and GERD that comes today for follow-up on her conditions. Blood pressure borderline normal to elevated and blood pressure will be recheck in 3 weeks by nurse navigator. I will increase losartan from 25 mg to 50 mg. GERD stable with PPIs. She denies any chest pain or shortness of breath. PFS Medical History Dermatochalasis of eyelid Excessive subcutaneous fat Myositis Protrusion of lumbar intervertebral disc Dyslipidemia Hair loss GERD (gastroesophageal reflux disease) High cholesterol Surgical History History of colonoscopy History of esophagogastroduodenoscopy History of removal of cyst History of surgery History of hemorrhoidectomy History of tubal ligation Family History Father Diabetes Hypertension Mother Hypertension Diabetes Lung cancer Skin cancer Arthritis Paternal Aunt Stroke Social History Household Members: None Housing: House Are you a primary career center advisor to a significant other at home: No Do you presently have visiting nurse or other home services: No Alcohol intake: current Alcohol intake frequency: holidays/special occasions only Alcohol type: wine Patient Tobacco Use Status: Former Tobacco user Quit Date: 2000 Tobacco use type: Cigarette e-Cigarette/Vaping Use: Never Used Second Hand Smoke Exposure: No Advance Directives Date on File: 09/23/22 service: No Current occupational status: employed 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 1. Little interest or pleasure in doing things: not at all 2. Feeling down, depressed, or hopeless: more than half the days 3. Trouble falling or staying asleep, or sleeping too much: not at all 4. Feeling tired or having little energy: more than half the days 5. Poor appetite or overeating: more than half the days 6. Feeling bad about yourself - or that you are a failure or have let yourself or your family down: not at all 7. Trouble concentrating on things, such as reading the newspaper or watching television: not at all 8. Moving or speaking so slowly that other people could have noticed. Or the opposite - being so fidgety or restless that you have been moving around a lot more than usual: several days 9. Thoughts that you would be better off or of hurting yourself in some way: not at all Total score: 7 Depression Screening Interpretation: Positive Depression Screening Follow-up: Existing condition Depression Screening Done: Yes 14281 - PHQ-9 Billing: Yes Source: Developed by Drs. Kostas Norris, Mana Garcia, Jeff Blanco and colleagues, with an educational solitario from [employer]. Thrive Questionnaire Date Thrive assessed: 06/19/23 I am a: Patient What is your living situation today?: I have a steady place to live Within the past 12 months, did the food you bought not last and you didn't have the money to get more?: Never true Within the past 12 months, did you worry whether your food would run out before you got money to buy more?: Never true Do you have trouble paying for medicines?: No Do you have trouble getting transportation to medical appointments?: No Do you have trouble paying your heating and electricity bill?: No Do you have trouble taking care of your child, family member or friend?: No Do you have trouble with day-to-day activities such as bathing, preparing meals, shopping, managing finances, etc.?: No Are you currently unemployed and looking for a job?: No Are you interested in more education?: No Please select the resources that you would like help with: None Currently or been in a relationship where the following occur: no concerns reported THRIVE Score: 0 AUDIT C Alcohol Use Questionnaire (AUDIT-C) 1. How often do you have a drink containing alcohol?: Monthly or less 2. How many drinks containing alcohol do you have on a typical day when you are drinking?: 1 or 2 3. How often do you have six or more drinks on one occasion?: Never Total Score: 1 Score Reviewed/Action Taken: No TAE-7 AMB Questionnaire TAE-7 Date TAE - 7 assessed: 06/19/23 Feeling nervous, anxious, or on edge: 3 = Nearly every day Not being able to stop or control worryin = Several days Worrying too much about different things: 3 = Nearly every day Trouble relaxin = Several days Being so restless that it is hard to sit still: 0 = Not at all Becoming easily annoyed or irritable: 1 = Several days Feeling afraid as if something awful might happen: 1 = Several days Total TAE-7 score (0-4 normal; 5-9 mild; 10-14 moderate; 15-21 severe): 10 Source: Developed by Drs. Kostas Norris, Mana Garcia, Jeff Blanco and colleagues, with an educational solitario from [employer]. TAE-7 Assessment Billing TAE-7 Assessment Tool: TAE-7 Assessment 72514 Review of Systems Const All systems reviewed & are unremarkable except as noted in HPI and below Eyes Reports no additional complaints, Denies change in vision and Denies other visual disturbances Card Denies chest pain at rest, Denies chest pain with activity, Denies edema, Denies irregular heart rhythm, Denies claudication, Denies dyspnea, Denies dyspnea on exertion, Denies orthopnea, Denies paroxysmal nocturnal dyspnea and Denies slow heart rate Resp Denies cough, Denies dyspnea and Denies dyspnea on exertion GI Denies abdominal pain, Denies change in bowel habits, Denies excessive flatus, Denies nausea and Denies vomiting Denies urinary incontinence, Denies urinary hesitancy and Denies urinary urgency Physical exam (Primary Care) Vital Signs: Last Vital Signs BP 140/90 H 06/19/23 14:32 BMI result Body Mass Index 24.4 Tobacco/Smoking Status: Tobacco use Status Tobacco use date assessed 06/19/23 06/19/23 14:39 Patient Tobacco Use Status Former Tobacco user 06/19/23 14:39 Tobacco use type Cigarette 06/19/23 14:39 e-Cigarette/Vaping Use Never Used 06/19/23 14:39 PHQ-9: PHQ-9 Score PHQ-9: Total score 7 06/19/23 15:15 Depression Screening Interpretation: Positive Depression Screening Follow-up: Existing condition Thrive Assessment: Date of Thrive Assessment Date Thrive assessed 06/19/23 06/19/23 14:39 Currently or been in a relationship where the following occur: no concerns reported Resp Effort & Inspection: normal respiratory effort Auscultation: clear to auscultation bilaterally Cardio Jugular venous distension: no JVD Rate: regular rate Rhythm: regular rhythm Heart sounds: S1 normal heart sound present and S2 normal heart sound present Extrem General: Yes full ROM Assessment and Plan Assessment & Plan (1) GERD with esophagitis: Code(s): K21.00 - Gastro-esophageal reflux disease with esophagitis, without bleeding Qualifiers: Esophagitis bleeding: without hemorrhage Qualified Code(s): K21.00 - Gastro-esophageal reflux disease with esophagitis, without bleeding Plan: Continue PPIs. (2) Essential hypertension: Code(s): I10 - Essential (primary) hypertension Plan: Increase losartan to 50 mg. Blood pressure will be recheck in 3 weeks by nurse navigator. Blood pressure goal is equal or less than 130/80. Orders: Orders Vitamin D 25-OH Total 06/19/23 R53.83 - Other fatigue Vitamin B12 and Folate 06/19/23 R53.83 - Other fatigue Complete Blood Count Auto Diff 06/19/23 R53.83 - Other fatigue Comprehensive Met. Panel 06/19/23 R53.83 - Other fatigue Coding Level of Care Code Est Pt Level 3 (77139) Diagnoses Gastroesophageal reflux disease with esophagitis without hemorrhage K21.00 Esophagitis bleeding: without hemorrhage Essential hypertension I10 Additional Codes TAE-7 Assessment Billing - TAE-7 Assessment Tool: TAE-7 Assessment 84822 ([id number]) Time Spent (min) 19
[2023-06-19 14:32] VITALS: BP 140/90; BMI 24.4
== END 2023-06-19 15:18 | disposition home or self-care (01) ==
PROVIDERS: PCP Internal Medicine; Visit Provider Internal Medicine
DX: K21.00 Gastro-esophageal reflux disease with esophagitis, without bleeding (principal); I10 Essential (primary) hypertension
CPT/HCPCS: 99213

== ENCOUNTER 2023-06-24 15:49 | Emergency (ER) | payer MEDICARE, MEDICAID, SELFPAY ==
--- NOTE | 2023-06-24 16:54 | ED.EYEPROB ---
HPI - Eye Problem General Chief complaint: Upper Respiratory Symptoms Stated complaint: rt eye swollen/left eye starting Time Seen by Provider: 06/24/23 22:38 Source: patient Mode of arrival: ambulatory Limitations: no limitations History of Present Illness HPI Narrative: Patient comes to the emergency room complaining of 2 days of right eye redness itching and discharge. Patient states that she has had no fever chills, no trauma to the eye. Patient also complaining of a mild discomfort in her throat, denies trouble swallowing or handling secretions. Related Data Previous Rx's Medication Instructions Recorded simethicone 125 mg capsule (Gas 125 mg PO BID PRN abdominal 02/17/23 Relief (simethicone)) distention 30 days #60 caps blood pressure monitor #1 ea 03/09/23 pantoprazole 20 mg tablet,delayed 20 mg PO DAILY #90 tabs 05/07/23 release losartan 50 mg tablet 50 mg PO DAILY 90 days #90 tabs 06/20/23 erythromycin 5 mg/gram (0.5 %) eye 0.5 inch ophthalmic (eye) TID #3.5 06/25/23 ointment grams Allergies Allergy/AdvReac Type Severity Reaction Status Date / Time oxycodone [From PERCOCET] Allergy Intermediate DIFF Verified 06/24/23 16:57 BREATHING Review of Systems Review of Systems: Constitutional : No Weight loss, No Fever, No Chills, No Night Sweats, No Fatigue, No Malaise ENT/Mouth : No Hearing loss, No Ear Pain, No Nasal Congestion, No Sinus Pain, No Hoarseness, complaining of mild sore throat, No Rhinorrhea, No Swallowing Difficulty Eyes: No Eye Pain, complaining of redness, sticky discharge, no vision changes Cardiovascular : No Chest Pain, No SOB, No Dyspnea on Exertion, No Orthopnea, No Edema, No Palpitations Respiratory : No Cough, No Sputum, No Wheezing, No Smoke Exposure, No Dyspnea Gastrointestinal : No Nausea, No Vomiting, No Diarrhea, No Constipation, No abdominal Pain, No Hematochezia, No Melena Genitourinary : no irregular bleeding, No Dysuria, No Urinary Frequency, No Hematuria, No Urinary Incontinence, No Urgency, No Flank Pain, No Urinary Flow Changes, No Hesitancy Musculoskeletal : No joint pain, No Myalgias, No Joint Swelling Skin : No Skin Lesions, No rash Neuro : No Weakness, No Numbness, No Paresthesias, No Loss of Consciousness, No Dizziness, No Headache Psych : No Anxiety/Panic, No Depression, No SI/HI/AH/VH, No Social Issues, Heme/Lymph: No Bruising, No Bleeding,No Lymphadenopathy Endocrine : No Polyuria, No Polydipsia, No Temperature Intolerance [facility] Past Medical History Medical History Dermatochalasis of eyelid Excessive subcutaneous fat Myositis Protrusion of lumbar intervertebral disc Dyslipidemia Hair loss GERD (gastroesophageal reflux disease) High cholesterol Surgical History History of colonoscopy History of esophagogastroduodenoscopy History of removal of cyst History of surgery History of hemorrhoidectomy History of tubal ligation Family History Family History Father Diabetes Hypertension Mother Hypertension Diabetes Lung cancer Skin cancer Arthritis Paternal Aunt Stroke Social History Social History Household Members: None Housing: House Are you a primary child care lead teacher to a significant other at home: No Do you presently have visiting nurse or other home services: No Alcohol intake: current Alcohol intake frequency: holidays/special occasions only Alcohol type: wine Patient Tobacco Use Status: Former Tobacco user Quit Date: 2000 Tobacco use type: Cigarette e-Cigarette/Vaping Use: Never Used Second Hand Smoke Exposure: No Advance Directives: Yes Advance Directives on File: Yes Advance Directives Date on File: 09/23/22 service: No Current occupational status: employed 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 Oriented X3. No acute distress. Eyes: Pupils equal, round and reactive to light. Right eye conjunctival injection, mildly purulent discharge, eye pressure is 16 mm Hg ENT: Pharynx normal. Neck: Normal inspection. Neck supple. No lymph nodes noted. No crepitus CVS: Normal heart rate and rhythm. Pulses normal. Normal S1 and S2 Respiratory: No respiratory distress. Breath sounds normal. No Wheezing. No rales Abdomen: Soft and nontender. No rigidity. No distention. Skin: Skin warm and dry. Normal skin color. Normal skin turgor. Extremities: No lower extremity edema. No Lacerations. No Rash Neuro: Oriented X 3. No motor deficit. No sensory deficit. Moving all extremities. No slurred speech. CN 2 through 12 grossly intact Psych: calm, cooperative, normal affect Course Course Course Narrative: This is a Rapid Medical Examination (RME) in triage, full HPI, ROS, assessment and plan per primary provider in the Main ED. Fior is a 67 year old female presenting today for evaluation of right eye swelling for 1 day. Reports discharge, feels that it is moving to left eye. Cough started today. Has blurriness of her right eye. Denies photophobia. 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 Medical Decision Making Medical Decision Making [facility] Narrative: -I discussed the physical exam with the patient, patient likely has conjunctivitis. -patient likely has a viral syndrome as well -my interpretation of labs: Negative for influenza, COVID, RSV -normal eye pressure. -also, it was noted that patient's blood pressure in the 190s, patient states that she forgot to take her blood pressure medication today. Patient usually takes 25 mg of losartan. Patient was given 25 mg of losartan here, states that she took medication at 15:00. Patient instructed to increase her dose to 50 mg daily. -patient instructed to have close follow-up with the primary care physician and keep a log of her blood pressures. Differential Diagnosis Differential Diagnoses: The differential diagnosis associated with the presentation includes (Conjunctivitis, glaucoma, viral syndrome, foreign body in eye) Lab Data [facility] Lab Attestation statement: I reviewed the patient's lab results. Labs: Lab Results 06/24/23 Range/Units 17:32 Influenza Type A (PCR) NEGATIVE (Negative) Influenza Type B (PCR) NEGATIVE (Negative) RSV RNA Qual (PCR) NEGATIVE (Negative) SARS-CoV-2 RNA (RT-PCR) NEGATIVE (Negative) Discharge Plan Discharge Clinical Impression: Acute bacterial conjunctivitis of right eye, Viral illness Patient Disposition: Home, Self-Care Instructions: Conjunctivitis (ED) Additional Instructions: Increased losartan 50 mg daily. Please follow-up with your primary care physician tomorrow. If you have any worsening or new symptoms, please return to the emergency room or call 911 Prescriptions: New erythromycin 5 mg/gram (0.5 %) ointment 0.5 inch ophthalmic (eye) TID Qty: 3.5 0RF No Action (DME) blood pressure monitor Kit See Rx Instructions .Route Qty: 1 0RF Rx Instructions: As directed losartan 50 mg tablet 50 mg PO DAILY 90 Days Qty: 90 0RF simethicone [Gas Relief (simethicone)] 125 mg capsule 125 mg PO BID PRN (Reason: abdominal distention) 30 Days Qty: 60 2RF pantoprazole 20 mg tablet,delayed release (DR/EC) 20 mg PO DAILY Qty: 90 1RF
[2023-06-24 16:55] VITALS: BP 202/110; PULSE 78; RESP 18; TEMP 36.4; O2SAT 99; BMI 25.0
[2023-06-24 18:20] LABS: Influenza A PCR NEGATIVE (Negative); Influenza B PCR NEGATIVE (Negative); Resp Syncy Virus RNA Qual PCR NEGATIVE (Negative); SARS COV2 PCR INHOUSE NEGATIVE (Negative)
[2023-06-24 22:59] VITALS: BP 176/99; PULSE 73; RESP 16; TEMP 36.7; O2SAT 98
[2023-06-25 00:05] VITALS: BP 194/96; PULSE 71; RESP 18; O2SAT 98
[2023-06-25] MEDS: Losartan Potassium 25 MG TABLET PO (00:37)
[2023-06-25] MEDS: Fluorescein Sodium STRIP 1 STRIP EYE-RIGHT (00:37)
[2023-06-25] MEDS: Tetracaine HCl/PF 0.5% Oph Sol 4 ML DROPS 1 DROP EYE-RIGHT (00:37)
[2023-06-25 00:51] VITALS: BP 194/96; PULSE 71; RESP 18; TEMP -17.7; TEMP 0; O2SAT 98
== END 2023-06-25 00:52 | disposition home or self-care (01) ==
PROVIDERS: Physician Assistant; Emergency Provider Emergency Medicine; PCP Internal Medicine
DX: H10.31 Unspecified acute conjunctivitis, right eye (principal); B34.9 Viral infection, unspecified; Z03.818 Encounter for observation for suspected exposure to other biological agents ruled out
CPT/HCPCS: 0241U; 99283

== ENCOUNTER 2023-07-28 13:46 | Outpatient (AMB) | payer MEDICARE, SELFPAY ==
--- NOTE | 2023-07-28 13:56 | A.OFFVIS_ITS ---
Vital Signs 07/28/23 13:58 Height 4 ft 11 in Weight 120 lb BMI 24.2 BP 170/82 H Blood Pressure Location Lt brachial Position Sitting Pulse 66 Intake Visit Reasons: follow up barretts Intake Note: Patient follow up for constipation Patient cc: acid reflex, gassy and constipation on ad off. Denies any other GI issues. 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 04/02/22: Previously Dr Soto's patient. EGD 2019: Irregular Z line and a few islands of columnar mucosa. Bx without metaplasia but BE noted on Wats. Colonoscopy reportedly in 2014 in [place] - had 2 polyps per her report. Currently complaints of occasional abd pain which she attributes to constipation that gets relieved with stool softeners. Also reports occasional rectal bleeding on wiping. CBC reviewed and normal H/H. No fam hx of colon cancer or advanced colon polyps. 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 * Internal hemorrhoids * Diverticulosis Path: A.? EG junction, biopsy: - Wolfe esophagus with background moderate chronic active inflammation. - No dysplasia seen. - Squamous mucosa within normal limits. B.? Esophagus, 31 cm, biopsy: - Cardiac-type mucosa with moderate chronic inactive inflammation; no intestinal metaplasia seen. - Squamous epithelium within normal limits. C.? Colon, sigmoid, polypectomy:? Colonic mucosa with mild surface hyperplastic changes. WATS-3D: Wolfe's without dysplasia. 09/13/22: Seen with live pump erector. No acute gastrointestinal complaints. Here to review EGD/colo findings which were discussed in detail. She had stopped taking PPI as she does not get heartburn anymore. 05/07/23: Pt seen in office for abd pain and follow up after hospitalisation in Dec. was noted to have rectal bleeding. 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 However, patient preferred to hold off EUA at that time, and today reports normalization of her bowel habits as well as resolution of rectal bleeding. However, reports that in the last 3 months has intermittently noted black s tools. This is not associated with any abdominal pain, nausea, vomiting, change in appetite. No lightheadedness or dizziness. Does report taking Pepto-Bismol occasionally. Also brings up frequent bowel movements every day. Goes at least 3 to 4 times a day. Stools are still formed and brown. Previously used to have constipation. Medications reviewed, and is on Pepcid complete which contains mac oxide, as well as taking magnesium supplements separately. Has Wolfe's without dysplasia, and was recommended to take omeprazole daily, however patient reported significant nausea with the medication and therefore self discontinued. 07/28/23: here for follow up. Has not been taking protonix either - makes her have incomplete relief of heartburn, more tired and fatigued. Feels much better on pepcid complete that she picks up over the counter. [facility] Medical History Dermatochalasis of eyelid Excessive subcutaneous fat Myositis Protrusion of lumbar intervertebral disc Dyslipidemia Hair loss GERD (gastroesophageal reflux disease) High cholesterol Surgical History History of colonoscopy History of esophagogastroduodenoscopy History of removal of cyst History of surgery History of hemorrhoidectomy History of tubal ligation Family History Father Diabetes Hypertension Mother Hypertension Diabetes Lung cancer Skin cancer Arthritis Paternal Aunt Stroke Social History Household Members: None Housing: House Are you a primary childcare teacher to a significant other at home: No Do you presently have visiting nurse or other home services: No Alcohol intake: current Alcohol intake frequency: holidays/special occasions only Alcohol type: wine Patient Tobacco Use Status: Former Tobacco user Quit Date: 2000 Tobacco use type: Cigarette e-Cigarette/Vaping Use: Never Used Second Hand Smoke Exposure: No Advance Directives Date on File: 09/23/22 service: No Current occupational status: employed 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 Current occupational exposures/hazards: No Cognitive needs: No Hearing needs: No Vision needs: No Review of Systems Const All systems reviewed & are unremarkable except as noted in HPI and below Physical Exam Vital Signs: Last Vital Signs Pulse 66 07/28/23 13:58 BP 170/82 H 07/28/23 13:58 BMI result Body Mass Index 24.2 NAD Nonicteric abd soft nondistended A.Ox3, normal gait Assessment & Plan Assessment & Plan (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 Nondysplastic wolfe's esophagus. Pt was counseled that due to intestinal metaplasia, it is not surprising that she does not get the subjective feeling of pyrosis however indefinite PPI use is recommended to avoid progression of BE. She remains hesitant to cont PPI due to side effects as outlined above. Tolerates pepcid without any difficulty. Repeat EGD recommended in 2027 per guidelines however as pt noncompliant with PPI, will relook next year with tissue cypher for risk stratification. 2. Abd discomfort and bloating Has vague upper GI sx ongoing x 6 months. Reminiscent of H PYlori gastritis that was treated in remote past (GI in [place]). Plan: - H Pylori breath test to be done today FOllow up next year for EGD Orders: Orders H Pylori Breath Test Today K21.00 - Gastro-esophageal reflux disease with esophagitis, without bleeding, R19.4 - Change in bowel habit Medications: Discontinued pantoprazole Discontinued Reason: Doctor's Order 20 mg PO DAILY 90 tabs 1RF Coding Level of Care Code Est Pt Level 4 (03204) Diagnoses Wolfe's esophagus without dysplasia K22.70 Wolfe's esophagus type: without dysplasia Abdominal discomfort R10.9 Bloating symptom R14.0
[2023-07-28 13:58] VITALS: BP 170/82; PULSE 66; BMI 24.2
== END 2023-07-28 14:53 | disposition home or self-care (01) ==
PROVIDERS: PCP Internal Medicine; Visit Provider Internal Medicine
DX: K22.70 Barrett's esophagus without dysplasia (principal); R10.9 Unspecified abdominal pain; R14.0 Abdominal distension (gaseous)
CPT/HCPCS: 99214

== ENCOUNTER 2023-07-28 13:46 | Outpatient (REF) | payer MEDICARE, OTHER, SELFPAY ==
[2023-08-01 08:48] LABS: H Pylori Breath Test Negative (Negative)
== END 2023-07-28 13:47 | disposition home or self-care (01) ==
LOC: HO.LAB 13:46
PROVIDERS: PCP Internal Medicine; Visit Provider Internal Medicine
DX: K21.00 Gastro-esophageal reflux disease with esophagitis, without bleeding (principal); R19.4 Change in bowel habit; K22.70 Barrett's esophagus without dysplasia; R10.9 Unspecified abdominal pain; R14.0 Abdominal distension (gaseous)
CPT/HCPCS: 83013; 99212

== ENCOUNTER 2023-10-28 14:45 | Outpatient (AMB) | payer MEDICARE, MEDICAID, SELFPAY ==
--- NOTE | 2023-10-28 14:45 | A.OFFVIS_ITS ---
Vital Signs 10/28/23 14:53 Height 4 ft 11 in Weight 122 lb 6 oz BMI 24.7 Pulse 76 Intake Visit Reasons: Hemorrhoids Intake Note: Patient is seen in office for hemorrhoids. Pt c/o: currently is not having any symptoms, 3 weeks ago was bleeding when having a bm, admits to constipation taking fiber and drinking plenty of water, thinks might have a tear down there cut Metal Buggy Operator Required: Yes Metal Buggy Operator Language: Compression Molding Machine Tender Services: Metal Buggy Operator Present Metal Buggy Operator Name: Maylin GONZALEZ Information Interpreted: non-clinical & clinical Accompanied by: Self / Same As Patient Allergies oxycodone [From PERCOCET] Allergy (Intermediate, Verified 10/28/23 14:53) DIFF BREATHING HPI Comments Details: 67-year-old female patient returning for evaluation of complaints of bleeding per rectum and pain with bowel movements. The pain is intermittent and occasionally sharp. She denies any new to strain to have a bowel movement but does feel as if there is tearing of the skin. She is concerned that there is a bleeding hemorrhoid as well. She previously underwent a lateral sphincterotomy for anal fissures in 2020. [facility] Medical History Dermatochalasis of eyelid Excessive subcutaneous fat Myositis Protrusion of lumbar intervertebral disc Dyslipidemia Hair loss GERD (gastroesophageal reflux disease) High cholesterol Surgical History History of colonoscopy History of esophagogastroduodenoscopy History of removal of cyst History of surgery History of hemorrhoidectomy History of tubal ligation Family History Father Diabetes Hypertension Mother Hypertension Diabetes Lung cancer Skin cancer Arthritis Paternal Aunt Stroke Social History Household Members: None Housing: House Are you a primary career resource technician to a significant other at home: No Do you presently have visiting nurse or other home services: No Alcohol intake: current Alcohol intake frequency: holidays/special occasions only Alcohol type: wine Patient Tobacco Use Status: Former Tobacco user Tobacco use type: Cigarette e-Cigarette/Vaping Use: Never Used Second Hand Smoke Exposure: No Advance Directives Date on File: 09/23/22 service: No Current occupational status: employed 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 Current occupational exposures/hazards: No Cognitive needs: No Hearing needs: No Vision needs: No Review of Systems Const Denies chills, Denies fever(s), Denies headache(s) and Denies poor appetite ENT Denies dizziness and Denies headache(s) Card Denies chest pain, Denies rapid heart rate, Denies palpitations and Denies slow heart rate Resp Denies chest congestion, Denies cough, Denies pain on inspiration and Denies wheezing GI Reports abdominal pain, Denies bloating, Reports hematochezia, Denies change in stool character, Reports constipation, Denies diarrhea, Denies nausea, Denies vomiting and Denies hematemesis Musc Denies back pain, Denies arthralgias, Denies joint swelling and Denies numbness Skin/Breast Denies change in pigmentation, Denies erythema and Denies rash Neuro Denies dizziness, Denies headache(s) and Denies numbness Psych Denies anxiety and Denies depression Endo Denies palpitations Milton/Lymph Denies easy bleeding, Denies easy bruising and Denies lymphadenopathy Aller/Immun Denies wheezing Physical Exam Const General: no acute distress Nutritional Appearance: well nourished Orientation/consciousness: patient oriented x3 Limitations: no limitations Resp Effort & Inspection: normal respiratory effort, no audible wheezes, no cough and no respiratory distress GI Other: Rectal examination: External examination with no abscess, fistula, thrombosed hemorrhoid or prolapsing internal hemorrhoid. Small external skin tag is identified. Tear in anal mucosa is identified in the posterior wall. Digital rectal examination: Tenderness in the posterior wall with evidence of sphincter hypertrophy. Unable to pass little finger through the anal canal due to pain and sphincter hypertrophy Anoscopy: Exam deferred due to pain. Inspection: Yes normal to inspection Palpation (GI): Soft to palpation, nontender, no guarding and not rigid Skin Other: Warm, dry, no rash Neuro General: patient oriented x3 Extrem Other: No edema Assessment & Plan Assessment & Plan (1) Anal fissure: Code(s): K60.2 - Anal fissure, unspecified Category: Medical Plan 67-year-old female patient returning with complaints of anal pain and bleeding previous to her exam last year. She was previously scheduled for an exam under anesthesia and possible sphincterotomy. Exam today confirms continued pain along the anal canal suggestive of an anal fissure. I am unable to clearly visualize any internal hemorrhoids therefore I would recommend an exam under anesthesia with possible lateral internal sphincterotomy. I reviewed the procedure, risks, and alternatives in detail and she consents to the surgery. She will be scheduled at her earliest convenience. Coding Level of Care Code Est Pt Level 4 (72359) Diagnoses Anal fissure K60.2
[2023-10-28 14:53] VITALS: PULSE 76; BMI 24.7
== END 2023-10-28 15:04 | disposition home or self-care (01) ==
PROVIDERS: PCP Internal Medicine; Visit Provider Surgery
DX: K60.2 Anal fissure, unspecified (principal)
CPT/HCPCS: 99214

== ENCOUNTER → 2023-10-28 14:45 | Outpatient (BNVA) | payer MEDICARE, MEDICAID, SELFPAY | PROVIDERS: PCP Internal Medicine; Visit Provider Surgery | DX: K60.2 Anal fissure, unspecified (principal) | CPT/HCPCS: 99212 ==

== ENCOUNTER 2023-11-13 15:10 | Outpatient (AMB) | payer MEDICARE, MEDICAID, SELFPAY ==
--- NOTE | 2023-11-13 15:11 | A.OFFVIS_ITS ---
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 She is doing well with no concerns. Has hemorrhoid surgery planned. History of fibroid, denies any pelvic pain, bloating or vaginal bleeding. Attempting to eat a healthy diet with calcium and vitamin D and stays active with exercise. Currently not sexually active in years. Denies any vaginal dryness or irritation. Last pap smear; 2020. Last mammogram; 2020. Colonoscopy is UTD. Denies any family history of breast, ovarian or colon cancer. [facility] Medical History Benítez esophagus HTN (hypertension) Excessive subcutaneous fat Dermatochalasis of eyelid Myositis Protrusion of lumbar intervertebral disc Dyslipidemia Hair loss GERD (gastroesophageal reflux disease) High cholesterol Surgical History History of colonoscopy History of esophagogastroduodenoscopy History of removal of cyst History of surgery History of hemorrhoidectomy History of tubal ligation Family History Father Diabetes Hypertension Mother Hypertension Diabetes Lung cancer Skin cancer Arthritis Paternal Aunt Stroke Social History Household Members: None Housing: House Are you a primary child care associate teacher to a significant other at home: No Do you presently have visiting nurse or other home services: No Alcohol intake: current Alcohol intake frequency: holidays/special occasions only Alcohol type: wine Patient Tobacco Use Status: Former Tobacco user Tobacco use type: Cigarette e-Cigarette/Vaping Use: Never Used Second Hand Smoke Exposure: No Advance Directives Date on File: 09/23/22 service: No Current occupational status: employed 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 Current occupational exposures/hazards: No Cognitive needs: No Hearing needs: No Vision needs: No Female Reproductive History Menstrual control method: permanent sterilization Permanent Sterilization: BTL Total pregnancies: 5 Full term: 5 Number of Living Children: 5 Date of last pap smear: 04/05/21 (neg pap and hpv) Date of Mammogram: 08/02/20 (Birad 2) Date of last Bone Density Screenin02/20/22 Review of Systems Const All systems reviewed & are unremarkable except as noted in HPI and below Reports as per HPI Eyes Reports no additional complaints ENT Reports no additional complaints Card Reports no additional complaints Resp Reports no additional complaints GI Reports as per HPI and Reports no additional complaints Reports as per HPI Musc Reports no additional complaints Skin/Breast Reports as per HPI Neuro Reports no additional complaints Psych Reports no additional complaints Endo Reports no additional complaints Milton/Lymph Reports no additional complaints Aller/Immun Reports no additional complaints Physical Exam Vital Signs: Last Vital Signs BP 160/96 H 11/13/23 15:16 BMI result Body Mass Index 24.6 Const General: cooperative, healthy appearing, no acute distress, well developed and alert Orientation/consciousness: patient oriented x3 HEENT Head: Yes normal to inspection Eyes General: appearance normal, both eyes and all related structures Neck Neck: Yes normal visual inspection Thyroid: Thyroid normal Chest Chest palpation & inspection: normal inspection of the chest and other (no puckering, dimpling, peau de orange, retraction, discharge, masses) Breast/axilla inspection: normal inspection of the breasts Breast/axilla palpation: normal palpation of the breasts Resp Effort & Inspection: normal respiratory effort GI Inspection: Yes normal to inspection Palpation (GI): Soft to palpation Rectal Exam - Female: deferred General: Yes bladder normal to palpation External Female Exam: normal external appearance and normal appearance of the urethra Speculum Exam - Vagina: normal appearance of the vagina, normal palpation, normal vaginal discharge and vagina atrophic Speculum Exam - Cervix: normal appearance of the cervix and normal palpation Bimanual exam- vagina & uterus: normal bimanual exam, normal palpation, uterine size normal, bladder normal to palpation, normal palpation and non-tender Bimanual Exam- Adnexa, other: no masses Skin General skin exam: no rashes or lesions noted Rashes: no rashes Neuro General: patient oriented x3 Cognition (Neuro): normal cognition Extrem General: Yes normal to inspection Psych Attitude: cooperative Thought process: Normal thought process present Assessment & Plan Assessment & Plan (1) Encounter for well woman exam with routine gynecological exam: Code(s): Z01.419 - Encounter for gynecological examination (general) (routine) without abnormal findings Category: Medical (2) Fibroid: Code(s): D21.9 - Benign neoplasm of connective and other soft tissue, unspecified Category: Medical Plan Discussed: Current recommendations for pap smears per ASCCP guidelines. Breast awareness, periodic self breast exams and yearly mammogram. Maintain a healthy lifestyle, well balanced diet including Calcium 1,200 mg and Vitamin D 600 IU daily, and routine exercise. Counseled re: Leiomyoma: common pelvic neoplasm. Differential diagnosis-may include but not limited to- leiomyosarcoma which is a rare uterine sarcoma 3- 7/100,000, difficult to distinguish from fibroids on ultrasound from uterine sarcoma's. Unlikely any single test will have a highly positive predictive value. Hysterectomy is not recommended for sole purpose of excluding malignant neoplasm. Consult for surgical exploration, medical treatment, other treatments, verses expectant management, pros and cons, risks and benefits. Expectant management follow up for stability. Report any PMB. Pelvic pressure, bloating, or pain. Referral to MD if indicated for level of care if indicated. Mammogram order. Patient verbalizes understanding and agrees to the plan of care. She was given opportunity to ask questions and all questions were answered to the best of my ability. RTO in 1 year for annual tree topper exam. This note is constructed using voice recognition software. While every effort has been made to ensure accuracy, senior linux engineer errors may have been included. Orders: Orders MM tomosynthesis screening BI Today Z12.31 - Encounter for screening mammogram for malignant neoplasm of breast US pelvic and transvaginal Today D21.9 - Benign neoplasm of connective and other soft tissue, unspecified Coding Level of Care Code Est Pt Prev Care >65y(18061) Diagnoses Encounter for well woman exam with routine gynecological exam Z01.419 Fibroid D21.9
[2023-11-13 15:16] VITALS: BP 160/96; BMI 24.6
== END 2023-11-13 15:48 | disposition home or self-care (01) ==
LOC: HO.HWS 15:10
PROVIDERS: PCP Internal Medicine; Visit Provider Advanced Practice Midwife
DX: Z01.419 Encounter for gynecological examination (general) (routine) without abnormal findings (principal); D21.9 Benign neoplasm of connective and other soft tissue, unspecified
CPT/HCPCS: 99397

== ENCOUNTER → 2023-11-13 15:10 | Outpatient (BNVA) | payer MEDICARE, MEDICAID, SELFPAY | PROVIDERS: PCP Internal Medicine; Visit Provider Advanced Practice Midwife ==

== ENCOUNTER 2023-11-17 05:46 | Day surgery (SDC) | payer MEDICARE, OTHER, SELFPAY ==
[2023-11-12 12:46] VITALS: BMI 24.6
[2023-11-17] VITALS (9 sets, daily range): BP systolic 125–171; BP diastolic 66–92; PULSE 55–80; RESP 12–16; TEMP 36.1–36.7; O2SAT 97–98
[2023-11-17] MEDS: Lactated Ringers 1,000 ML 100 ML IVCONT (06:25)
--- NOTE | 2023-11-17 07:21 | MHC.SHP ---
Pre-Procedural Eval Section A - 24 Hr Update-Section A only Date of Service: 11/17/23 The patient is an INPATIENT: No Changes since office visit: Yes Patient answered all questions; No Cold of Flu in the past 2 weeks, No New Medical Problems and No Changes in Medication The patient has been examined within 24 hours of the surgical procedure. The History & Physical has been completed within 30 days and I have reviewed it.: Yes Section B - Complete if H&P > 30 days Chief Complaint: Anal fissure, unspecified Allergies: Allergies Allergy/AdvReac Type Severity Reaction Status Date / Time oxycodone [From PERCOCET] Allergy Intermediate DIFF Verified 11/17/23 06:15 BREATHING Plan Diagnosis/Plan: Unchanged I have reviewed the history and physical and performed a pertinent physical examination on my patient. No changes have occurred unless specified. Time Spent With Patient Time: Total time managing care of this patient today ____ minutes.
--- NOTE | 2023-11-17 08:14 | HO.ANESPROP2 ---
HPI - Anesthesia Eval Consult details Narrative: sphinterotomy PMFSH Active Problems Active Problems: All Active Problems Fibroid (Acute) Encounter for well woman exam with routine gynecological exam (Acute) Bloating symptom (Acute) Abdominal discomfort (Acute) Fatigue (Acute) Frequent bowel movements (Acute) Immunization due (Acute) Physical exam (Acute) Anal fissure (Acute) Hypovitaminosis D (Acute) Ear discomfort (Acute) Upper respiratory tract infection (Acute) Personal history of colonic polyps (Acute) Post-menopausal (Acute) Flank mass (Acute) Osteoarthritis of lumbar spine (Acute) Excessive cerumen in both ear canals (Acute) Preoperative clearance (Acute) Uncontrolled hypertension (Acute) Encounter to discuss test results (Acute) Encounter for repeat Pap smear due to previous insufficient cervical cells (Acute) Hemorrhoids (Acute) Lump of skin of back (Acute) Preop cardiovascular exam (Acute) Essential hypertension (Acute) Pain in pelvis (Acute) Abnormal EKG (Acute) Obesity (Acute) Encounter for pre-operative cardiovascular clearance (Acute) Folliculitis (Acute) Alopecia (Acute) GERD with esophagitis (Acute) Benítez esophagus (Acute) Family history of hypertension (Acute) Low back pain (Acute) Excessive subcutaneous fat (Acute) High cholesterol (Acute) Myositis (Acute) Protrusion of lumbar intervertebral disc (Acute) Dyslipidemia (Acute) Hair loss (Acute) Past Medical History Medical History Benítez esophagus HTN (hypertension) Excessive subcutaneous fat Dermatochalasis of eyelid Myositis Protrusion of lumbar intervertebral disc Dyslipidemia Hair loss GERD (gastroesophageal reflux disease) High cholesterol Family History Family History Father Diabetes Hypertension Mother Hypertension Diabetes Lung cancer Skin cancer Arthritis Paternal Aunt Stroke Family history of problems with anesthesia: No Surgical History Surgical History History of colonoscopy History of esophagogastroduodenoscopy History of removal of cyst History of surgery History of hemorrhoidectomy History of tubal ligation History of Problems with Anesthesia: No Social History Social History Household Members: None Housing: House Are you a primary outdoor emergency care technician to a significant other at home: No Do you presently have visiting nurse or other home services: No Alcohol intake: current Alcohol intake frequency: holidays/special occasions only Alcohol type: wine Patient Tobacco Use Status: Former Tobacco user Tobacco use type: Cigarette e-Cigarette/Vaping Use: Never Used Second Hand Smoke Exposure: No Use of substances other than those prescribed or required for medical reasons: No Have you been hit, kicked, punched, or otherwise hurt by someone within the past year? 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 Current occupational exposures/hazards: No Cognitive needs: No Hearing needs: No Vision needs: No Meds Allergies Allergy/AdvReac Type Severity Reaction Status Date / Time oxycodone [From PERCOCET] Allergy Intermediate DIFF Verified 11/17/23 06:15 BREATHING Active Medications: Current Medications Lactated Ringer's (Lr) 1,000 mls @ 100 mls/hr IVCONT .Q10H HIEU Last Admin: 11/17/23 06:25 Dose: 100 mls/hr Exam Height,Weight and Vital Signs: Height 4 ft 11 in Weight 55.338 kg Last Vital Signs Temp 97.0 F 11/17/23 06:18 Pulse 63 11/17/23 06:18 Resp 16 11/17/23 06:18 BP 167/86 H 11/17/23 06:18 Pulse Ox 98 11/17/23 06:18 O2 Del Method Room Air 11/17/23 06:18 Airway Mallampati Class: II TM Dist: >3cm Neck ROM: Limited Heart: rrr Lungs: cta Assessment and Plan Assessment Anesthesia Assessment: Anesthesia Plan Discussed Final Anesthetic Review Family History of Problems with Anesthesia: No History of Problems with Anesthesia: No NPO: Yes ASA Class: III Final Preanesthetic Review: No Changes in Pt Med Stat, Meds/Allgs Chart Reviewed, Consent Obtained/Reviewed and Anes Risks/Benef Reviewed Anesthetic Plan Anesthetic Plan: GA Disposition: Standard PACU
--- NOTE | 2023-11-17 08:22 | P.OP_ITS ---
Operative Note Operative Note Date of Service: 11/17/23 Narrative: Preoperative diagnosis: Anal pain, bleeding possible anal fissure Postoperative diagnosis: Anal fissure Procedure: Exam under anesthesia, lateral internal sphincterotomy Surgeon: Amauri Bailey MD Retail Support Specialist: None Anesthesia: General LMA Indications for procedure: 67-year-old female patient with a prior history of perianal pain and bleeding found to have an anal fissure returning with recurrent episode of pain and bleeding. Exam in the office was unsuccessful due to the significant amount of pain the patient was experiencing. Decision was made to proceed to exam under anesthesia and possible sphincterotomy. Operative findings: Patient was found to have a posterior anal fissure with bleeding. No internal hemorrhoids were identified. A tight anal sphincter was identified. Specimen: None Estimated blood loss: Less than 5 mL Complications: None Procedure details: The patient was brought to the OR and placed in a supine position. After administering general anesthesia the patient was placed in the lithotomy position. The perianal skin was then prepped with Betadine and draped in a sterile fashion. A surgical time-out was called the consent confirmed. Patient received preoperative antibiotics and Venodyne boots were in place. Local anesthesia was then infiltrated in a 3 o'clock position. Examination under anesthesia was then performed. No internal hemorrhoids were identified. An anal fissure was identified in the posterior anal wall. Tight sphincter muscles were identified on palpation. The decision was made to proceed with a lateral internal sphincterotomy. Additional local was then infiltrated submucosally. A 1 cm incision was then made in the lateral wall of the 3 o'clock position. A hemostat was then used to dissect the hypertrophic internal sphincter muscle into the incision. This was then cauterized and divided using electrocautery. Good hemostasis was achieved. Pressure was held to assure hemostasis. Wounds were examined and no active bleeding identified. Packing of 4 x 4 gauze wrapped with Xeroform and Surgicel was then placed in the anal canal. ABD was then covered over the anal wounds. The patient tolerated the procedure well. Sponge, instrument, and needle counts reported as correct. The patient was transferred to PACU in stable condition.
[2023-11-17] MEDS: fentaNYL citrate/PF 100 MCG/2 ML VIAL 25 MCG IVPUSH (08:43)
== END 2023-11-17 09:43 | disposition home or self-care (01) ==
PROVIDERS: PCP Internal Medicine; Visit Provider Surgery
PROC: (CPT 46080; principal; 2023-11-17 07:30)
DX: K60.2 Anal fissure, unspecified (principal); K21.9 Gastro-esophageal reflux disease without esophagitis; E78.00 Pure hypercholesterolemia, unspecified; M60.9 Myositis, unspecified; Z79.899 Other long term (current) drug therapy; Z88.8 Allergy status to other drugs, medicaments and biological substances; Z88.5 Allergy status to narcotic agent; Z98.890 Other specified postprocedural states; Z87.891 Personal history of nicotine dependence
CPT/HCPCS: 46080; J1100; J2250; J2405; J2795; J3010

== ENCOUNTER → 2023-11-17 05:46 | Outpatient (BNV) | payer MEDICARE, MEDICAID, SELFPAY | PROVIDERS: PCP Internal Medicine; Visit Provider Surgery | DX: K60.2 Anal fissure, unspecified (principal) | CPT/HCPCS: 46080 ==

== ENCOUNTER 2023-12-02 11:25 | Outpatient (AMB) | payer MEDICARE, MEDICAID, SELFPAY ==
--- NOTE | 2023-12-02 11:25 | A.OFFVIS_ITS ---
Vital Signs 12/02/23 11:31 Height 4 ft 11 in Weight 125 lb BMI 25.2 BP 178/88 H Blood Pressure Location Lt brachial Position Sitting Pulse 73 Intake Visit Reasons: S/P EUA, poss sphincterotomy Intake Note: Patient is seen in office for post op assessment post sphincterotomy. Pt c/o: no concerns regading surgery, healing as expected Therapeutic Recreation Assistant Required: No Accompanied by: Self / Same As Patient Allergies oxycodone [From PERCOCET] Allergy (Intermediate, Verified 12/02/23 11:32) DIFF BREATHING Medication List - Last Reconciled 12/02/23 by Amauri Bailey MD acetaminophen-codeine 300-30 mg 1 tab PO Q6H PRN blood pressure monitor As directed losartan 50 mg PO DAILY 90 days HPI Comments Details: 67-year-old female patient status post exam under anesthesia with lateral internal sphincterotomy. Tolerated the procedure well and feels much improved today with no further pain or bleeding. She has having regular bowel movements without difficulty. [facility] Medical History Benítez esophagus HTN (hypertension) Excessive subcutaneous fat Dermatochalasis of eyelid Myositis Protrusion of lumbar intervertebral disc Dyslipidemia Hair loss GERD (gastroesophageal reflux disease) High cholesterol Surgical History History of rectal sphincterotomy (11/17/23) History of colonoscopy History of esophagogastroduodenoscopy History of removal of cyst History of surgery History of hemorrhoidectomy History of tubal ligation Family History Father Diabetes Hypertension Mother Hypertension Diabetes Lung cancer Skin cancer Arthritis Paternal Aunt Stroke Social History Household Members: None Housing: House Are you a primary healthcare or medical to a significant other at home: No Do you presently have visiting nurse or other home services: No Alcohol intake: current Alcohol intake frequency: holidays/special occasions only Alcohol type: wine Patient Tobacco Use Status: Former Tobacco user Tobacco use type: Cigarette e-Cigarette/Vaping Use: Never Used Second Hand Smoke Exposure: No Advance Directives Date on File: 09/23/22 service: No Current occupational status: employed 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 Neuro General: patient oriented x3 Extrem General: No edema Assessment & Plan Assessment & Plan (1) Anal fissure: Code(s): K60.2 - Anal fissure, unspecified Category: Medical Plan Patient returns status post lateral internal sphincterotomy for anal fissure. She tolerated the procedure well and reports feeling much improved at this time. She should follow up as needed. Coding Level of Care Code Global (40721) Diagnoses Anal fissure K60.2
[2023-12-02 11:31] VITALS: BP 178/88; PULSE 73; BMI 25.2
== END 2023-12-02 11:54 | disposition home or self-care (01) ==
PROVIDERS: PCP Internal Medicine; Visit Provider Surgery
DX: K60.2 Anal fissure, unspecified (principal)
CPT/HCPCS: 99024

== ENCOUNTER → 2023-12-02 11:25 | Outpatient (BNVA) | payer MEDICARE, MEDICAID, SELFPAY | PROVIDERS: PCP Internal Medicine; Visit Provider Surgery | DX: K60.2 Anal fissure, unspecified (principal) | CPT/HCPCS: 99212 ==

== ENCOUNTER → 2023-12-10 15:00 | Outpatient (BNV) | payer MEDICARE, MEDICAID, SELFPAY | PROVIDERS: PCP Internal Medicine; Visit Provider Internal Medicine | DX: Z12.31 Encounter for screening mammogram for malignant neoplasm of breast (principal) | CPT/HCPCS: 77063; 77067 ==

== ENCOUNTER 2023-12-10 15:19 | Outpatient (REF) | payer MEDICARE, MEDICAID, SELFPAY ==
--- NOTE | ~2023-12-10 | MM_ITS ---
EXAMINATION: MM SCREENING DIGITAL BREAST TOMOSYNTHESIS, BILATERAL CLINICAL INFORMATION: Screening. Asymptomatic. COMPARISON: Mammography: Comparison is made with available priors TECHNIQUE: Digital breast mammography with tomosynthesis is performed in both the craniocaudal and mediolateral oblique views along with computer-aided detection (CAD). FINDINGS: There are scattered areas of fibroglandular density (ACR BI-RADS breast composition Category b). There are no significant masses, abnormal calcifications, or other abnormalities. MM/MM tomosynthesis screening BI IMPRESSION: No mammographic evidence of malignancy. ASSESSMENT: BI-RADS BI-RADS 1 - Negative RECOMMENDATION: Routine annual mammography screening. 1 year F/U This examination should not preclude the clinical evaluation of a suspicious palpable abnormality. This patient's information was entered into a reminder system with a target due date for their next mammogram. Electronically signed by: Tracie Box DO 12/23/2023 09:25 AM EDT
== END 2023-12-10 15:20 | disposition home or self-care (01) ==
LOC: HO.MAMMO 15:19
PROVIDERS: PCP Internal Medicine; Visit Provider Advanced Practice Midwife
DX: Z12.31 Encounter for screening mammogram for malignant neoplasm of breast (principal)
CPT/HCPCS: 77063; 77067

== ENCOUNTER 2024-02-06 12:53 | Emergency (ER) | payer MEDICARE, MEDICAID, SELFPAY ==
--- NOTE | ~2024-02-06 | XR_ITS ---
EXAMINATION: XR CHEST CLINICAL INFORMATION: Chest pain, cough, and shortness of breath. COMPARISON: Chest radiograph dated August 01, 2020. TECHNIQUE: 2 views of the chest were obtained. FINDINGS: The heart is normal in size. Soft tissue density along the right upper mediastinum is unchanged and likely represents vascular shadows. There is no consolidation within either lung. No pleural effusion. No pneumothorax. No acute osseous abnormality. XR/XR chest 2V IMPRESSION: No acute cardiopulmonary disease. Stable appearance of the heart and lungs. Electronically signed by: Jasen Jaimes DO 02/06/2024 03:39 PM EST
[2024-02-06 14:08] VITALS: BP 192/103; PULSE 80; RESP 18; TEMP 37; O2SAT 100; BMI 25.1
--- NOTE | 2024-02-06 14:11 | ED_ITS ---
HPI - General Adult General Chief complaint: Upper Respiratory Symptoms Stated complaint: pneumonia symptoms Time Seen by Provider: 02/06/24 17:34 Source: patient Mode of arrival: ambulatory Limitations: no limitations History of Present Illness ED Provider: malcolm LLOYD narrative: Patient's history of stable asthma not using any inhaler been coughing for last 7-10 days mostly in the night mostly is dry feels tight in the chest subjective fever and chills patient had chest x-ray and labs done prior to my evaluation which was normal no pneumonia was seen in the xray Related Data Previous Rx's ?Medication ?Instructions ?Recorded blood pressure monitor #1 ea 03/09/23 acetaminophen 300 mg-codeine 30 mg 1 tab PO Q6H PRN pain (scale score 11/17/23 tablet 7-10) #15 tabs losartan 50 mg tablet 50 mg PO DAILY 90 days #90 tabs 12/13/23 albuterol sulfate 90 mcg/actuation 2 puff inhalation Q6H PRN 02/06/24 aerosol inhaler shortness of breath or wheezing #8.5 grams benzonatate 200 mg capsule 200 mg PO TID PRN cough #20 caps 02/06/24 cefuroxime axetil 500 mg tablet 500 mg PO BID 7 days #14 tabs 02/06/24 prednisone 20 mg tablet 40 mg (2 x 20 mg) PO DAILY #10 tabs 02/06/24 Allergies Allergy/AdvReac Type Severity Reaction Status Date / Time oxycodone [From PERCOCET] Allergy Intermediate DIFF Verified 02/06/24 14:15 BREATHING Review of Systems 2 Review of Systems: Yes all other systems are reviewed and are negative PMFSH Past Medical History Medical History Benítez esophagus HTN (hypertension) Excessive subcutaneous fat Dermatochalasis of eyelid Myositis Protrusion of lumbar intervertebral disc Dyslipidemia Hair loss GERD (gastroesophageal reflux disease) High cholesterol Surgical History History of rectal sphincterotomy (11/17/23) History of colonoscopy History of esophagogastroduodenoscopy History of removal of cyst History of surgery History of hemorrhoidectomy History of tubal ligation Family History Family History Father Diabetes Hypertension Mother Hypertension Diabetes Lung cancer Skin cancer Arthritis Paternal Aunt Stroke Social History Social History Household Members: None Housing: House Are you a primary emergency care tech to a significant other at home: No Do you presently have visiting nurse or other home services: No Alcohol intake: current Alcohol intake frequency: holidays/special occasions only Alcohol type: wine Patient Tobacco Use Status: Former Tobacco user Tobacco use type: Cigarette e-Cigarette/Vaping Use: Never Used Second Hand Smoke Exposure: No Advance Directives: Yes Advance Directives on File: Yes Advance Directives Date on File: 09/23/22 service: No Current occupational status: employed 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 Oriented X3. No acute distress. Eyes: No pallor or icterus ENT: Pharynx normal. Oral Mucosa moist Neck: Normal inspection. Neck supple. CVS: Normal heart rate and rhythm. Pulses normal. Respiratory: No respiratory distress. Equal air entry bilateral, prolonged expiration no crackles Abdomen: Soft and nontender. Bowel sounds are present, no mass palpable, no CVA tenderness Skin: Skin warm and dry. Normal skin color. Normal skin turgor. Extremities: No lower extremity edema. No calf tenderness Neuro: Oriented X 3. Course Course Course Narrative: This is an RME performed by Lisa Crawley CNP: Additional HPI, ROS, PE not included below will be deferred to primary provider. Patient is a 68-year-old female who presents to the emergency department for evaluation of productive cough cough, chest pain described as a tightness, felt at night with excessive coughing, intermittent shortness of breath, tactile fever with chills. Onset of symptoms was 1 week ago. Exam: LS CTA no respiratory distress, speaking clear full sentences. Plan: CXR, viral serologies, EKG Medications Administered Discontinued Medications Generic Name Dose Route Start Last Admin Trade Name Amber PRN Reason Stop Dose Admin Albuterol Sulfate 2 puff 02/06/24 17:59 02/06/24 18:14 Albuterol Sulfate 90 Mcg 8 Gm Inhaler INHALE 02/06/24 18:00 2 puff ONCE ONE Administration Benzonatate 200 mg 02/06/24 17:59 02/06/24 18:34 Benzonatate 100 Mg Capsule PO 02/06/24 18:00 200 mg ONCE ONE Administration Cefuroxime Axetil 500 mg 02/06/24 17:58 02/06/24 18:34 Cefuroxime Axetil 500 Mg Tablet PO 02/06/24 17:59 500 mg ONCE ONE Administration Prednisone 40 mg 02/06/24 17:59 02/06/24 18:34 Prednisone 20 Mg Tablet PO 02/06/24 18:00 40 mg ONCE ONE Administration Medical Decision Making Lab Data MDM Lab Attestation statement: I reviewed the patient's lab results. 02/06/24 14:36 02/06/24 14:36 Labs: Lab Results 02/06/24 Range/Units 14:36 WBC 6.1 (4.8-10.8) X10*3/uL RBC 4.53 (4.20-5.50) X10*6/uL Hgb 13.4 (12.0-16.0) g/dl Hct 40.1 (37.0-47.0) % MCV 88.5 (80.0-98.0) fL MCH 29.6 (27.0-33.0) pg MCHC 33.4 (31.0-35.0) g/dl RDW 14.5 (11.0-16.0) % Plt Count 285 (160-400) X10*3/uL MPV 8.8 L (9.4-12.3) fL Immature Gran % (Auto) 0.8 H (0.0-0.4) % Neut % (Auto) 59.5 (45-73) % Lymph % (Auto) 22.5 (20-40) % Carbon % (Auto) 7.9 (2-11) % Eos % (Auto) 8.1 H (0-4) % Baso % (Auto) 1.2 (0-2) % Lymph # (Auto) 1.4 (1.2-4.9) X10*3/uL Carbon # (Auto) 0.5 (0.1-1.2) X10*3/uL Eos # (Auto) 0.5 H (0.0-0.4) X10*3/uL Baso # (Auto) 0.1 (0.0-0.2) X10*3/uL Abs Immat Gran (auto) 0.05 H (0.00-0.03) X10*3/uL Absolute Neuts (auto) 3.6 (2.0-8.3) x10*3/uL Absolute Nucleated RBC 0.000 (0.0-0.012) X10*3/uL Nucleated RBC % (auto) 0.0 (0.0-0.2) /100WBC PT 11.5 (10.9-12.4) SEC INR 1.0 (0.9-1.1) Sodium 144 (135-145) mmol/L Potassium 4.2 (3.3-5.1) mmol/L Chloride 107 (96-108) mmol/L Carbon Dioxide 28 (22-29) mmol/L Anion Gap 13 (12-20) BUN 11 (9-16) mg/dL Creatinine 0.63 (0.5-1.4) mg/dL Estim Creat Clear Calc 65.3 Estimated GFR > 60 Random Glucose 103 (60-115) mg/dL Calcium 10.1 (8.4-10.2) mg/dL Total Bilirubin 0.3 (0.0-1.0) mg/dL AST 25 (5-31) U/L ALT 21 (0-31) U/L Alkaline Phosphatase 66 (39-117) U/L Troponin I High Sens < 2.7 (<3.5-17.0) ng/L Total Protein 7.6 (6.5-8.0) g/dL Albumin 4.4 (3.5-5.0) g/dL Influenza Type A (PCR) NEGATIVE (Negative) Influenza Type B (PCR) NEGATIVE (Negative) RSV RNA Qual (PCR) NEGATIVE (Negative) SARS-CoV-2 RNA (RT-PCR) NEGATIVE (Negative) Independent Interpretation I performed an independent interpretation of an: Plain X-Ray Radiology Impression Discussion of test interpretation with radiology: I have reviewed the radiologist's reading. Radiologist Impression: XR/XR chest 2V IMPRESSION: No acute cardiopulmonary disease. Stable appearance of the heart and lungs. Electronically signed by: Jasen Jaimes DO 02/06/2024 03:39 PM EST Discharge Plan Discharge Clinical Impression: Acute bronchitis Patient Disposition: Home, Self-Care Instructions: Acute Bronchitis (ED) Additional Instructions: Take antibiotics prednisone and cough drops as prescribed Use albuterol inhaler 2 puffs every 4-6 hours as needed Follow with your PCP if not better Prescriptions: New benzonatate 200 mg capsule 200 mg PO TID PRN (Reason: cough) Qty: 20 0RF prednisone 20 mg tablet 40 mg PO DAILY Qty: 10 0RF cefuroxime axetil 500 mg tablet 500 mg PO BID 7 Days Qty: 14 0RF albuterol sulfate 90 mcg/actuation HFA aerosol inhaler 2 puff inhalation Q6H PRN (Reason: shortness of breath or wheezing) Qty: 8.5 0RF No Action (DME) blood pressure monitor Kit See Rx Instructions .Route Qty: 1 0RF Rx Instructions: As directed losartan 50 mg tablet 50 mg PO DAILY 90 Days Qty: 90 0RF acetaminophen-codeine 300-30 mg tablet 1 tab PO Q6H PRN (Reason: pain (scale score 7-10)) Qty: 15 0RF Print Language: Burundian
--- NOTE | 2024-02-06 14:13 | ECG_ITS ---
Test Reason : CP/SOB/COUGH Blood Pressure : / mmHG Vent. Rate : 079 BPM Atrial Rate : 079 BPM P-R Int : 136 ms QRS Dur : 076 ms QT Int : 374 ms P-R-T Axes : 039 041 048 degrees QTc Int : 428 ms Normal sinus rhythm Nonspecific ST and T wave abnormality Abnormal ECG When compared with ECG of 01-OCT-2021 07:27, Premature atrial complexes are no longer Present T wave inversion now evident in Anterior leads Referred By: Kerry Crawley Electronically Signed By:Fernando Torres
[2024-02-06 14:41] LABS: MANUAL DIFF FLAG NO
[2024-02-06 14:51] LABS: Basophils Absolute Auto 0.1 X10*3/uL (0.0-0.2); Basophils Percent Auto 1.2 % (0-2); Eosinophils Absolute Auto 0.5 X10*3/uL (0.0-0.4); Eosinophils Percent Auto 8.1 % (0-4); Hematocrit 40.1 % (37.0-47.0); Hemoglobin 13.4 g/dl (12.0-16.0); Imm Gran Abs Auto 0.05 X10*3/uL (0.00-0.03); Imm Gran Pct Auto 0.8 % (0.0-0.4); Lymphocytes Absolute Auto 1.4 X10*3/uL (1.2-4.9); Lymphocytes Percent Auto 22.5 % (20-40); Mean Corpuscular HGB Conc 33.4 g/dl (31.0-35.0); Mean Corpuscular Hemoglobin 29.6 pg (27.0-33.0); Mean Corpuscular Volume 88.5 fL (80.0-98.0); Mean Platelet Volume 8.8 fL (9.4-12.3); Monocytes Absolute Auto 0.5 X10*3/uL (0.1-1.2); Monocytes Percent Auto 7.9 % (2-11); Neutrophils Absolute Auto 3.6 x10*3/uL (2.0-8.3); Neutrophils Percent Auto 59.5 % (45-73); Platelet Count 285 X10*3/uL (160-400); Red Blood Count 4.53 X10*6/uL (4.20-5.50); Red Cell Distribution Width 14.5 % (11.0-16.0); White Blood Count 6.1 X10*3/uL (4.8-10.8)
[2024-02-06 14:57] LABS: Alanine Aminotransferase 21 U/L (0-31); Albumin Level 4.4 g/dL (3.5-5.0); Anion Gap 13 (12-20); Aspartate Amino Transferase 25 U/L (5-31); Bilirubin Total 0.3 mg/dL (0.0-1.0); Blood Urea Nitrogen 11 mg/dL (9-16); Calcium 10.1 mg/dL (8.4-10.2); Carbon Dioxide 28 mmol/L (22-29); Chloride 107 mmol/L (96-108); Creatinine Clr Calc Pharmacy 65.3; Estimated Glomerular Filt Rate > 60; Glucose Random 103 mg/dL (60-115); Potassium 4.2 mmol/L (3.3-5.1); Sodium 144 mmol/L (135-145); Total Protein 7.6 g/dL (6.5-8.0)
[2024-02-06 15:02] LABS: Troponin-I High Sensitivity < 2.7 ng/L (<3.5-17.0)
[2024-02-06 15:10] LABS: Alkaline Phosphatase 66 U/L (39-117)
[2024-02-06 15:18] LABS: Prothrombin Time 11.5 SEC (10.9-12.4)
[2024-02-06 15:23] LABS: Influenza A PCR NEGATIVE (Negative); Influenza B PCR NEGATIVE (Negative); Resp Syncy Virus RNA Qual PCR NEGATIVE (Negative); SARS COV2 PCR INHOUSE NEGATIVE (Negative)
[2024-02-06 17:36] VITALS: BP 167/89; PULSE 91; RESP 16; O2SAT 98
[2024-02-06 18:14] VITALS: PULSE 91; RESP 98; O2SAT 16
[2024-02-06] MEDS: Albuterol Sulfate 90 MCG 8 GM INHALER 2 PUFF INHALE (18:14)
[2024-02-06] MEDS: cefuroxime axetiL 500 MG TABLET PO (18:34)
[2024-02-06] MEDS: Benzonatate 100 MG CAPSULE 200 MG PO (18:34)
[2024-02-06] MEDS: predniSONE 20 MG TABLET 40 MG PO (18:34)
[2024-02-06 19:13] VITALS: BP 167/89; PULSE 91; RESP 98; TEMP 37; O2SAT 98
== END 2024-02-06 19:13 | disposition home or self-care (01) ==
PROVIDERS: Nurse Practitioner Family; Emergency Provider Internal Medicine; PCP Internal Medicine
DX: J20.9 Acute bronchitis, unspecified (principal); R05.9 Cough, unspecified; R50.9 Fever, unspecified; I10 Essential (primary) hypertension; K21.9 Gastro-esophageal reflux disease without esophagitis; Z03.818 Encounter for observation for suspected exposure to other biological agents ruled out
CPT/HCPCS: 0241U; 36415; 71046; 80053; 84484; 85025; 85610; 93005; 94640; 99284

== ENCOUNTER → 2024-02-06 14:13 | Outpatient (BNV) | payer MEDICARE, MEDICAID, SELFPAY | PROVIDERS: Emergency Provider Internal Medicine; PCP Internal Medicine; Visit Provider Internal Medicine Cardiovascular Disease | DX: R07.9 Chest pain, unspecified (principal); R06.02 Shortness of breath; R94.31 Abnormal electrocardiogram [ECG] [EKG] | CPT/HCPCS: 93010 ==

== ENCOUNTER 2024-02-24 15:52 | Outpatient (AMB) | payer MEDICARE, MEDICAID, SELFPAY ==
--- NOTE | 2024-02-24 15:59 | A.OFFPC_ITS ---
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 Accompanied by: Self / Same As Patient Allergies oxycodone [From PERCOCET] Allergy (Intermediate, Verified 02/24/24 16:25) DIFF BREATHING Medication List - Last Reconciled 02/24/24 by Antonette Stanley MD albuterol sulfate 90 mcg/actuation 2 puffs inhalation Q6H PRN blood pressure monitor As directed losartan 50 mg PO DAILY 90 days Tobacco use date assessed: 06/19/23 Fall risk assessment: No Falls in past year Last assessed Fall Risk: 02/24/24 Dental Screening Dental Screen Date: 06/19/23 HPI HPI Comments History of Present Illness Details This is a 68-year-old female that comes for her physical exam. No chest pain or shortness on breath. Blood pressure elevated and I will increase losartan. She complains of venous insufficiency and would like to see vascular surgery. - Pap smear performed in 2021, normal re sults. - Mammogram performed in 2022, results w ere normal. - Densitometry in 2021 indicated osteope nathan, due for repeat testing this year. - Completed tetanus vaccine in 2021, nex t due in 2031. - Not up-to-date on pneumonia vaccine; c urrently recommended. - Laboratory evaluation for diabetes las t done emergently; normal results at a fasting blood sugar of 103. [facility] Medical History (Updated 02/24/24 @ 16:37 by Antonette Stanley MD) Benítez esophagus HTN (hypertension) Excessive subcutaneous fat Dermatochalasis of eyelid Myositis Protrusion of lumbar intervertebral disc Dyslipidemia Hair loss GERD (gastroesophageal reflux disease) High cholesterol Surgical History History of rectal sphincterotomy (11/17/23) History of colonoscopy History of esophagogastroduodenoscopy History of removal of cyst History of surgery History of hemorrhoidectomy History of tubal ligation Family History Father Diabetes Hypertension Mother Hypertension Diabetes Lung cancer Skin cancer Arthritis Paternal Aunt Stroke Social History Household Members: None Housing: House Are you a primary pet care assistant to a significant other at home: No Do you presently have visiting nurse or other home services: No Alcohol intake: current Alcohol intake frequency: holidays/special occasions only Alcohol type: wine Patient Tobacco Use Status: Former Tobacco user Tobacco use type: Cigarette e-Cigarette/Vaping Use: Never Used Second Hand Smoke Exposure: No Advance Directives Date on File: 09/23/22 service: No Current occupational status: employed 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 Kostas Norris, Mana Garcia, Jeff Blanco and colleagues, with an educational solitario from [employer]. Review of Systems Const All systems reviewed & are unremarkable except as noted in HPI and below Card Denies chest pain at rest, Denies chest pain with activity, Denies edema, Denies irregular heart rhythm, Denies claudication, Denies dyspnea, Denies dyspnea on exertion, Denies orthopnea, Denies paroxysmal nocturnal dyspnea and Denies slow heart rate Resp Denies cough, Denies dyspnea and Denies dyspnea on exertion GI Denies abdominal pain, Denies change in bowel habits, Denies excessive flatus, Denies nausea and Denies vomiting Denies urinary incontinence, Denies urinary hesitancy and Denies urinary urgency Musc Denies abnormal gait, Denies atrophy, Denies deformity and Denies limited range of motion Skin/Breast Denies bleeding lesions, Denies changing lesions and Denies rash Neuro Denies abnormal gait and Denies lack of coordination Physical exam (Primary Care) Vital Signs: Last Vital Signs BP 182/90 H 02/24/24 16:00 BMI result Body Mass Index 24.9 Tobacco/Smoking Status: Tobacco use Status Tobacco use date assessed 06/19/23 02/24/24 16:02 Patient Tobacco Use Status Former Tobacco user 02/24/24 16:02 Tobacco use type Cigarette 02/24/24 16:02 e-Cigarette/Vaping Use Never Used 02/24/24 16:02 Thrive Assessment: Date of Thrive Assessment Date Thrive assessed 06/19/23 02/24/24 16:02 HENMT Head: Yes normal to inspection, Yes normocephalic and Yes atraumatic Ears: external ears normal Eyes General: appearance normal, both eyes and all related structures Eyelids: Yes eyelids normal Conjunctivae: conjunctivae normal Neck Neck: Yes normal visual inspection and Yes supple Resp Effort & Inspection: normal respiratory effort Auscultation: clear to auscultation bilaterally Cardio Jugular venous distension: no JVD Rate: regular rate Rhythm: regular rhythm Heart sounds: S1 normal heart sound present and S2 normal heart sound present GI Inspection: Yes normal to inspection Palpation (GI): Soft to palpation and nontender Auscultation: normal bowel sounds Skin General skin exam: no rashes or lesions noted Neuro General: no focal motor deficits Extrem General: Yes full ROM Psych Appearance: grossly normal Office Procedures Flu Questionnaire Does the patient have a severe egg allergy?: No Immunizations Fluarix Triv [id number] (PF) 45 mcg (15 mcg x 3)/0.5 mL IM syringe Performing Provider: Antonette Stanley MD Performing Location: [facility] Adult Primary [facility] Documented (not given) by: LISA Neil on 02/24/24 16:43 Reason Not Given: Not Given pneumoc 20-vick conj-dip cr(PF) 0.5 mL IM syringe Performing Provider: Antonette Stanley MD Performing Location: [facility] Adult [facility] Administered by: LISA Neil on 02/24/24 16:41 Dose Route Admin Location Dispensed Lot Number Expiration Date [facility] Gutter Mouth Cutter 0.5 mL IM Left Deltoid 0.5 mL [id number] 03/24/25 9477-5954-83 WYETH/PFIZER VIS Given Date VIS Provided VIS Publication Date 02/24/24 Single Vaccine 21 Eligibility Eligibility Date Funding Source Not [facility] Eligible 02/24/24 Private Coding Level of Care Code Est Pt Level 3 (71877) Est Pt Prev Care >65y(93420) Diagnoses Physical exam Z00.00 Venous insufficiency I87.2 Time Spent (min) 34 Assessment & Plan Assessment & Plan (1) Physical exam: Code(s): Z00.00 - Encounter for general adult medical examination without abnormal findings Category: Medical (2) Venous insufficiency: Code(s): I87.2 - Venous insufficiency (chronic) (peripheral) Category: Medical Plan - Hypertension: Increase Losartan dosage to 100 mg and re-evaluate blood pressure in three weeks. Recommend dietary adjustments to support blood pressure control, and potential referral to a employee communications specialist if blood pressure remains uncontrolled. - Sleep disturbances: Monitoring current medications that may impact sleep patterns, and consider discussions around non-pharmacological approaches to improve sleep hygiene. - Osteopenia: Repeat bone density test this year and consider pharmacologic treatment if significant osteopenia is confirmed. - Preventative care: Immunization with pneumonia vaccine as currently recommended. - venous insufficiency: Referred to vascular surgery. Patient was informed and verbally consented to the use of an ambient scribe for clinic note documentation during this visit. We discussed increasing the Losartan dosage to help manage her elevated blood pressure and the need for monitoring in three weeks. We reviewed the importance of lifestyle adjustments, including diet and exercise, to assist with blood pressure control. Discussed adhering to vaccination schedules, specifically the pneumonia vaccine, and addressed concerns about potential reactions based on past experiences. We also addressed the patient?s concern about frequent sleep disturbances, recommending non-pharmacological strategies and the impact of medications on sleep patterns. Orders: Orders XR DEXA axial skeleton Today Z78.0 - Asymptomatic menopausal state Influenza [id number] Immunization Today Z23 - Encounter for immunization Lipid Panel Today E78.5 - Hyperlipidemia, unspecified Comprehensive [place]. Panel Fast Today Z00.00 - Encounter for general adult medical examination without abnormal findings Vitamin D 25-OH Total Today E55.9 - Vitamin D deficiency, unspecified Pneumococcal 20 Immunization Today Z23 - Encounter for immunization Referrals Vascular Surgery Referral I87.2 - Venous insufficiency (chronic) (peripheral) Medications: New losartan 100 mg PO DAILY 90 tabs 1RF 90 days Discontinued losartan Discontinued Reason: Patient Completed Course 50 mg PO DAILY 90 days 90 tabs 0RF Patient Instructions: - Increase Losartan dosage to 100 mg daily as prescribed. - Schedule follow-up to reassess blood pressure in three weeks. - Maintain a log of blood pressure readings and any side effects. - Follow lifestyle recommendations for controlling blood pressure, including diet modifications and physical activity. - Schedule and complete pneumonia vaccination. - Undergo recommended bone density scan to monitor osteopenia. - Practice suggested strategies to improve sleep and monitor any further changes.
[2024-02-24 16:00] VITALS: BP 182/90; BMI 24.9
== END 2024-02-24 16:46 | disposition home or self-care (01) ==
PROVIDERS: PCP Internal Medicine; Visit Provider Internal Medicine
DX: Z00.00 Encounter for general adult medical examination without abnormal findings (principal); I87.2 Venous insufficiency (chronic) (peripheral); Z23 Encounter for immunization

== ENCOUNTER → 2024-02-24 15:52 | Outpatient (BNVA) | payer MEDICARE, MEDICAID, SELFPAY | PROVIDERS: PCP Internal Medicine; Visit Provider Internal Medicine | DX: Z00.00 Encounter for general adult medical examination without abnormal findings (principal); Z23 Encounter for immunization; I87.2 Venous insufficiency (chronic) (peripheral) | CPT/HCPCS: 90471; 90677; 99212; 99397 ==

== ENCOUNTER 2024-03-08 10:16 | Outpatient (REF) | payer MEDICARE, MEDICAID, SELFPAY ==
[2024-03-08 10:29] LABS: MANUAL DIFF FLAG NO
[2024-03-08 11:14] LABS: Basophils Absolute Auto 0.1 X10*3/uL (0.0-0.2); Eosinophils Absolute Auto 0.4 X10*3/uL (0.0-0.4); Eosinophils Percent Auto 6.2 % (0-4); Hematocrit 38.6 % (37.0-47.0); Hemoglobin 12.6 g/dl (12.0-16.0); Imm Gran Abs Auto 0.03 X10*3/uL (0.00-0.03); Imm Gran Pct Auto 0.4 % (0.0-0.4); Lymphocytes Absolute Auto 2.7 X10*3/uL (1.2-4.9); Mean Corpuscular HGB Conc 32.6 g/dl (31.0-35.0); Mean Corpuscular Hemoglobin 29.2 pg (27.0-33.0); Mean Corpuscular Volume 89.4 fL (80.0-98.0); Mean Platelet Volume 8.7 fL (9.4-12.3); Monocytes Absolute Auto 0.5 X10*3/uL (0.1-1.2); Monocytes Percent Auto 7.7 % (2-11); Neutrophils Absolute Auto 3.2 x10*3/uL (2.0-8.3); Neutrophils Percent Auto 45.7 % (45-73); Platelet Count 365 X10*3/uL (160-400); Red Blood Count 4.32 X10*6/uL (4.20-5.50); White Blood Count 6.9 X10*3/uL (4.8-10.8)
[2024-03-08 12:30] LABS: Alanine Aminotransferase 21 U/L (0-31); Albumin Level 4.2 g/dL (3.5-5.0); Alkaline Phosphatase 56 U/L (39-117); Anion Gap 10 (12-20); Aspartate Amino Transferase 24 U/L (5-31); Bilirubin Total 0.3 mg/dL (0.0-1.0); Blood Urea Nitrogen 16 mg/dL (9-16); Calcium 9.4 mg/dL (8.4-10.2); Carbon Dioxide 28 mmol/L (22-29); Chloride 112 mmol/L (96-108); Cholesterol 244 mg/dL (<200); Estimated Glomerular Filt Rate > 60; Glucose Fasting 85 mg/dL (60-99); Glucose Random 85 mg/dL (60-115); HDL Cholesterol 71 mg/dL (>40); LDL Cholesterol Calculated 156 mg/dL (<100); Potassium 4.4 mmol/L (3.3-5.1); Sodium 146 mmol/L (135-145); Total Protein 7.4 g/dL (6.5-8.0); Triglycerides 87 mg/dL (<150)
[2024-03-08 12:52] LABS: Folate 12.4 ng/mL (> or = 4.0); Vitamin B12 1018 pg/mL (200-900)
== END 2024-03-08 10:17 | disposition home or self-care (01) ==
LOC: HO.LAB 10:16
PROVIDERS: PCP Internal Medicine; Visit Provider Internal Medicine
DX: Z00.00 Encounter for general adult medical examination without abnormal findings (principal); R53.83 Other fatigue; E78.5 Hyperlipidemia, unspecified
CPT/HCPCS: 36415; 80053; 80061; 82306; 82607; 82746; 85025

== ENCOUNTER 2024-03-11 14:00 | Outpatient (AMB) | payer MEDICARE, MEDICAID, SELFPAY ==
--- NOTE | 2024-03-11 14:05 | A.OFFVIS_ITS ---
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 She has veins that are painful and her legs feel tired. 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 Complaints include pain over varicosities, swelling of lower extremities, cramping, fatigue, and heaviness of the lower extremities. It has been affecting their daily activities including walking, standing, and physical activity. It is noted more so in left leg. She is a former smoker and not a diabetic. Patient states she has had some procedures with catheters on bilateral lower extremities with Dr. Moe aden 4-5y ago Patient denies any history of DVT/ PE. Patient denies any history of phlebitis. Trial of compression includes - elevation with some relief and compression stockings, but does not tolerate them well They now present for vascular evaluation regarding their varicose veins. [facility] Medical History Benítez esophagus HTN (hypertension) Excessive subcutaneous fat Dermatochalasis of eyelid Myositis Protrusion of lumbar intervertebral disc Dyslipidemia Hair loss GERD (gastroesophageal reflux disease) High cholesterol Surgical History History of rectal sphincterotomy (11/17/23) History of colonoscopy History of esophagogastroduodenoscopy History of removal of cyst History of surgery History of hemorrhoidectomy History of tubal ligation Family History Father Diabetes Hypertension Mother Hypertension Diabetes Lung cancer Skin cancer Arthritis Paternal Aunt Stroke Social History Household Members: None Housing: House Are you a primary resident care supervisor to a significant other at home: No Do you presently have visiting nurse or other home services: No Alcohol intake: current Alcohol intake frequency: holidays/special occasions only Alcohol type: wine Patient Tobacco Use Status: Former Tobacco user Tobacco use type: Cigarette e-Cigarette/Vaping Use: Never Used Second Hand Smoke Exposure: No Advance Directives Date on File: 09/23/22 service: No Current occupational status: employed 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 Current occupational exposures/hazards: No Cognitive needs: No Hearing needs: No Vision needs: No Review of Systems Const Reports as per HPI and Denies weakness ENT Reports Normal hearing present and Denies dizziness Card Reports as per HPI, Denies chest pain, Denies chest pain at rest, Denies chest pain with activity, Denies dyspnea and Denies dyspnea on exertion Resp Reports as per HPI, Denies cough, Denies dyspnea and Denies dyspnea on exertion GI Reports as per HPI, Denies abdominal pain, Denies nausea and Denies vomiting Musc Denies numbness Skin/Breast Reports as per HPI, Denies erythema and Denies wounds Neuro Reports Normal hearing present, Denies dizziness, Denies numbness, Denies Sensory deficit (Neuro) and Denies weakness Psych Reports no additional complaints Endo Reports no additional complaints Physical Exam Const General: healthy appearing and no acute distress Orientation/consciousness: patient oriented x3 HEENT Head: Yes normal to inspection Ears: hearing grossly normal bilaterally Mouth: Normal oral and palatal mucosa present Resp Effort & Inspection: normal respiratory effort and able to speak in complete sentences Auscultation: clear to auscultation bilaterally Cardio Jugular venous distension: no JVD Rate: regular rate Rhythm: regular rhythm Heart sounds: S1 normal heart sound present and S2 normal heart sound present Bruits: no abdominal aortic bruits, no carotid bruits, no femoral bruits and no renal bruits Peripheral pulses: Peripheral pulses 2+ throughout GI Inspection: Yes normal to inspection Palpation (GI): No Abdominal aortic bruit present Skin General skin exam: no rashes or lesions noted Wounds: no wounds Hair: normal Neuro General: patient oriented x3 Cranial nerves: Yes Normal hearing present Cognition (Neuro): normal cognition Gait exam (Neuro): Normal gait present Motor exam (neuro): 5/5 motor strength present throughout Sensory Exam: No Sensory deficit (Neuro) Extrem Other: BLE: small varicosities noted over the tibial tuberosities. Trace peripheral edema noted. Palpable DP pulses. CEAP: C - 3 E - primary A - superficial P - reflux General: Yes normal to inspection, Yes full ROM, Yes capillary refill normal and Yes normal gait Assessment & Plan Assessment & Plan (1) Varicose veins of both lower extremities with inflammation: Code(s): I83.11 - Varicose veins of right lower extremity with inflammation; I83.12 - Varicose veins of left lower extremity with inflammation Category: Medical Plan: Fior is presenting today on a referral from her PCP for ongoing concerns of varicose veins with swelling, cramping, heaviness/fatigue, and pain over the varicosities. In short, the patient has evidence of venous insufficiency. I have discussed the pathophysiology with the patient. In addition I have provided informational material regarding venous disease to the patient. We have discussed conservative measures including compression, elevation, and exercise. The pt has been wearing compression stockings and we discussed continued use of them. I have taken the liberty of ordering venous insufficiency testing with the patient. They will follow up with me after testing. The patient had an opportunity to ask questions regarding the treatment plan. All questions were answered. Imaging studies, laboratory studies and physical exam results were discussed and reviewed in detail. No major barriers to understanding were identified. The patient expressed understanding and agreement with the above treatment plan. The patient is aware they should conta ct our office by phone for worsening of the current condition or the appearance of new symptoms. Thank you for allowing me to participate in the vascular care of this patient. If you have any questions or concerns regarding the treatment for the above condition please do not hesitate to contact me. The office telephone contact is [phone]. This note is constructed using voice recognition software. While every effort has been made to ensure accuracy, tire room supervisor errors may have been included. Thank you for allowing me to participate in the care of your patient. Yours sincerely, MERRY Hancock Orders: Orders US venous duplex LE BI 1 Week I83.11 - Varicose veins of right lower extremity with inflammation, I83.12 - Varicose veins of left lower extremity with inflammation Coding Level of Care Code New Pt Level 4 (40289) Diagnoses Varicose veins of both lower extremities with inflammation I83.11; I83.12
== END 2024-03-11 14:58 | disposition home or self-care (01) ==
PROVIDERS: PCP Internal Medicine; Visit Provider Physician Assistant Surgical
DX: I83.11 Varicose veins of right lower extremity with inflammation (principal); I83.12 Varicose veins of left lower extremity with inflammation
CPT/HCPCS: 99204

== ENCOUNTER → 2024-03-11 14:00 | Outpatient (BNVA) | payer MEDICARE, MEDICAID, SELFPAY | PROVIDERS: PCP Internal Medicine; Visit Provider Physician Assistant Surgical | DX: I83.11 Varicose veins of right lower extremity with inflammation (principal); I83.12 Varicose veins of left lower extremity with inflammation | CPT/HCPCS: 99202 ==

== ENCOUNTER 2024-03-12 13:25 | Outpatient (REF) | payer MEDICARE, MEDICAID, SELFPAY | END 2024-03-12 13:26 | disposition home or self-care (01) | LOC: HO.US 13:25 | PROVIDERS: PCP Internal Medicine; Visit Provider Advanced Practice Midwife | DX: D21.9 Benign neoplasm of connective and other soft tissue, unspecified (principal) | CPT/HCPCS: 76830; 76856 ==

== ENCOUNTER 2024-04-09 13:29 | Outpatient (REF) | payer MEDICARE, MEDICAID, SELFPAY | END 2024-04-09 13:30 | disposition home or self-care (01) | LOC: HO.US 13:29 | PROVIDERS: PCP Internal Medicine; Visit Provider Physician Assistant Surgical | DX: Z13.89 Encounter for screening for other disorder (principal) ==

== ENCOUNTER 2024-04-14 14:27 | Outpatient (REF) | payer MEDICARE, OTHER, SELFPAY ==
--- NOTE | ~2024-04-14 | MM_ITS ---
EXAMINATION: DXA BONE DENSITY AXIAL HISTORY: Estrogen deficiency TECHNIQUE: [employer] Dual energy absorptiometry (DEXA) of the lumbar spine, total left hip, and femoral neck was performed. COMPARISON: Comparison is made with the prior examination dated 02/20/2022. FINDINGS: The bone mineral density of the lumbar spine is 0.961 with a T-score of -1.8, and a Z-score of 0.1. This represents a BMD change of -2.1% compared to the prior exam. This is not statistically significant. The bone mineral density of the left total hip is 0.894 with a T-score of -0.9, and a Z-score of 0.7. This represents BMD change of -3.7% compared to the prior exam. This is statistically significant. The bone mineral density of the left femoral neck is 0.769 with a T-score of -1.9, and a Z-score of -0.2. This represents BMD change of -4.4% compared to the prior exam. FRACTURE RISK: The FRAX index suggests a ten year probability of major osteoporotic fracture of 64%, and of hip fracture 1.1%. MM/XR DEXA axial skeleton IMPRESSION: Based on bone mineral density, and according to World Health Organization (WHO) criteria, the diagnosis is consistent with osteopenia. All bone density values are in grams per centimeter squared (g/cm2). Statistically, 68% of repeat scans fall within 1 SD (+/- 0.010 g/cm2 for AP spine L1-L4) and 1 SD (+/- 0.012 g/cm2 for femur total) FRAX is a trademark of the [employer]'s [place] [employer] Metabolic Bone Disease, a World Health Organization (WHO) Collaborating Center. Electronically signed by: Kostas Ramirez MD 04/15/2024 07:23 AM [facility]
--- OUTSIDE RECORDS SUMMARY | 2024-04-14 16:54 | XMS_ITS | Clinical Summary ---
Author Organization [employer] Address [address] [place] [address] [address] [place] [address] Care Team Providers Care Governor Assembler Hydraulic Name Role Phone Unavailable Primary Care Provider Unavailabl e Social History Tobacco Use Types Packs/Day Years Used Date Smoking Tobacco: Never Assessed Comments Unknown Sex and Gender Information Value Date Recorded Sex Assigned at Female 01/21/2022 10:14 AM EDT Legal Sex Female 10:14 AM EDT Gender Identity Female 01/21/2022 10:14 AM EDT Sexual Orientation Straight 01/21/2022 10 :14 AM EDT Plan of Treatment Health Maintenance Due Date Last Done Comments CT Colonography 1955 Colonoscopy 1955 Colorectal Cancer Screening 1955 Depression Screening 1955 FIT DNA/Cologuard 1955 FIT 1955 FOBT 1955 Sigmoidoscopy 1955 Alcohol/Substance Use Screening 1967 Tobacco Screening 1967 Mammogram 1995 Hepatitis B Vaccines (3 of 3 - 19+ 3-dose series) 01/19/1998 10/22/1997, 09/13/1997, 07/20/1997 DTaP/Tdap/Td Vaccines (1 - Tdap) 10/19/2005 10/18/2005, 10/18/2005, 06/02/1992 Zoster Vaccines (1 of 2) 12/25/2005 Pneumococcal Vaccine: 65+ Years (2 of 2 - PCV) 12/25/2020 12/02/2014 COVID-19 Vaccine (3 - 2023-2 5 season) 2023 10/02/2020, 09/11/2020 Influenza Vaccine (#1) 2023 2, 12/27/2010 RSV Patients and Patients Aged 60 years or older (1 - 1-dose 75+ series) 12/25/2030 HIB Vaccines Aged Out No longer eligi ble based on patient's age to complete this topic HPV Vaccines Aged Out No longer eligi ble based on patient's age to complete this topic Hepatitis A Vaccines Aged Out No long er eligible based on patient's age to complete this topic IPV Vaccines Aged Out No longer eligi ble based on patient's age to complete this topic Meningococcal Vaccine Aged Out No alan madison eligible based on patient's age to complete this topic RSV under 20 months Aged Out No longe r eligible based on patient's age to complete this topic Rotavirus Vaccines Aged Out No longer eligible based on patient's age to complete this topic
--- OUTSIDE RECORDS SUMMARY | 2024-04-14 16:54 | XMS_ITS | Encounter Summary ---
Author Organization [employer] [facility] Address [address] [place] [address] [address] [place] [address] Care Team Providers Care Handbag Stitcher Name Role Phone Unavailable Primary Care Provider Unavailabl e Encounter Details Date Type Department Care Team (Latest Contact Info) Description 05/05/2019 Abstract C CONVERSIONS Dental, Provider, DDS Social History Tobacco Use Types Packs/Day Years Used Date Smoking Tobacco: Never Assessed Comments Unknown Sex and Gender Information Value Date Recorded Sex Assigned at Female 01/21/2022 10:14 AM EDT Legal Sex Female 10:14 AM EDT Gender Identity Female 01/21/2022 10:14 AM EDT Sexual Orientation Straight 01/21/2022 10 :14 AM EDT documented as of this encounter Plan of Treatment Not on file documented as of this encounter Visit Diagnoses Not on filedocumented in this encounter
--- OUTSIDE RECORDS SUMMARY | 2024-04-14 16:54 | XMS_ITS | Encounter Summary ---
Author Organization [email or web address] [facility] Address [address] [place] [address] [address] [place] [address] Care Team Providers Care Clinical Application Consultant Name Role Phone Unavailable Primary Care Provider Unavailabl e Encounter Details Date Type Department Care Team (Latest Contact Info) Description 11/02/2020 Abstract C CONVERSIONS Dental, Provider, DDS Social [...]
== END 2024-04-14 14:28 | disposition home or self-care (01) ==
LOC: HO.MAMMO 14:27
PROVIDERS: PCP Internal Medicine; Visit Provider Internal Medicine
DX: Z13.820 Encounter for screening for osteoporosis (principal); Z78.0 Asymptomatic menopausal state
CPT/HCPCS: 77080

== ENCOUNTER → 2024-04-14 14:30 | Outpatient (BNV) | payer MEDICARE, SELFPAY | PROVIDERS: PCP Internal Medicine; Visit Provider Radiology Diagnostic Radiology | DX: M85.89 Other specified disorders of bone density and structure, multiple sites (principal) | CPT/HCPCS: 77080 ==

== ENCOUNTER 2024-05-03 12:50 | Outpatient (REF) | payer MEDICARE, OTHER, SELFPAY | END 2024-05-03 12:51 | disposition home or self-care (01) | LOC: HO.US 12:50 | PROVIDERS: PCP Internal Medicine; Visit Provider Physician Assistant Surgical | DX: I83.11 Varicose veins of right lower extremity with inflammation (principal); I83.12 Varicose veins of left lower extremity with inflammation | CPT/HCPCS: 93970 ==

== ENCOUNTER → 2024-05-03 12:51 | Outpatient (BNV) | payer MEDICARE, SELFPAY | PROVIDERS: PCP Internal Medicine; Visit Provider Radiology Diagnostic Radiology | DX: I83.11 Varicose veins of right lower extremity with inflammation (principal); I83.12 Varicose veins of left lower extremity with inflammation | CPT/HCPCS: 93970 ==

== ENCOUNTER 2024-05-18 15:14 | Outpatient (AMB) | payer MEDICARE, SELFPAY ==
--- NOTE | 2024-05-18 15:15 | A.OFFVIS_ITS ---
Intake Visit Reasons: follow up s/p US 04/1024 Intake Note: Patient presents for follow up US. States her legs are always tired. Accompanied by: Self / Same As Patient Allergies oxycodone [From PERCOCET] Allergy (Intermediate, Verified 05/18/24 15:16) DIFF BREATHING HPI HPI follow up s/p 04/1024: Details: Fior is presenting today as a follow up to ultrasound, performed on 05/03/2024. 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 She does continue to endorse pain, mostly in her feet. She denies any swelling today. She does have a history of venous procedures with Dr. Rosa, more than 4 years ago. She has no new concerns today. [facility] Medical History Benítez esophagus HTN (hypertension) Excessive subcutaneous fat Dermatochalasis of eyelid Myositis Protrusion of lumbar intervertebral disc Dyslipidemia Hair loss GERD (gastroesophageal reflux disease) High cholesterol Surgical History History of rectal sphincterotomy (11/17/23) History of colonoscopy History of esophagogastroduodenoscopy History of removal of cyst History of surgery History of hemorrhoidectomy History of tubal ligation Family History Father Diabetes Hypertension Mother Hypertension Diabetes Lung cancer Skin cancer Arthritis Paternal Aunt Stroke Social History Household Members: None Housing: House Are you a primary neonatal intensive care unit nurse to a significant other at home: No Do you presently have visiting nurse or other home services: No Alcohol intake: current Alcohol intake frequency: holidays/special occasions only Alcohol type: wine Patient Tobacco Use Status: Former Tobacco user Tobacco use type: Cigarette e-Cigarette/Vaping Use: Never Used Second Hand Smoke Exposure: No Advance Directives Date on File: 09/23/22 service: No Current occupational status: employed 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 Current occupational exposures/hazards: No Cognitive needs: No Hearing needs: No Vision needs: No Review of Systems Const Reports as per HPI and Denies weakness ENT Reports Normal hearing present and Denies dizziness Card Reports as per HPI, Denies chest pain, Denies chest pain at rest, Denies chest pain with activity, Denies dyspnea and Denies dyspnea on exertion Resp Reports as per HPI, Denies cough, Denies dyspnea and Denies dyspnea on exertion GI Reports as per HPI, Denies abdominal pain, Denies nausea and Denies vomiting Musc Denies numbness Skin/Breast Reports as per HPI, Denies erythema and Denies wounds Neuro Reports Normal hearing present, Denies dizziness, Denies numbness, Denies Sensory deficit (Neuro) and Denies weakness Psych Reports no additional complaints Endo Reports no additional complaints Physical Exam Const General: healthy appearing and no acute distress Orientation/consciousness: patient oriented x3 HEENT Head: Yes normal to inspection Ears: hearing grossly normal bilaterally Mouth: Normal oral and palatal mucosa present Resp Effort & Inspection: normal respiratory effort and able to speak in complete sentences Auscultation: clear to auscultation bilaterally Cardio Jugular venous distension: no JVD Rate: regular rate Rhythm: regular rhythm Heart sounds: S1 normal heart sound present and S2 normal heart sound present Bruits: no abdominal aortic bruits, no carotid bruits, no femoral bruits and no renal bruits Peripheral pulses: Peripheral pulses 2+ throughout GI Inspection: Yes normal to inspection Palpation (GI): No Abdominal aortic bruit present Skin General skin exam: no rashes or lesions noted Wounds: no wounds Hair: normal Neuro General: patient oriented x3 Cranial nerves: Yes Normal hearing present Cognition (Neuro): normal cognition Gait exam (Neuro): Normal gait present Motor exam (neuro): 5/5 motor strength present throughout Sensory Exam: No Sensory deficit (Neuro) Extrem Other: BLE: small varicosities noted over the tibial tuberosities. Trace peripheral edema noted. Palpable DP pulses. General: Yes normal to inspection, Yes full ROM, Yes capillary refill normal and Yes normal gait Results Reviewed Results Reviewed: Brief summary of venous insufficiency testing is as follows: right great saphenous vein: negative, not seen above and at the knee right small saphenous vein: negative right accessory vein: none present left great saphenous vein: negative, not seen above and at the knee, as well as in the mid-calf left small saphenous vein: negative left accessory vein: none present Please note there is no evidence of any venous aneurysms or significant tortuos ity Assessment & Plan Assessment & Plan (1) Varicose veins of both lower extremities with inflammation: Code(s): I83.11 - Varicose veins of right lower extremity with inflammation; I83.12 - Varicose veins of left lower extremity with inflammation Category: Medical Plan: Fior is presenting today as a follow up to venous insufficiency ultrasound, performed 05/03/2024. There was no insufficiency noted on ultrasound. She does continue to endorse pain in her feet primarily but denies any swelling. We discussed with her that this is not a vascular issue and she should follow up with her PCP for further evaluation and treatment. We discussed the importance of continuing with compression stockings, elevation, and physical activity. We discussed the importance of a well-balanced, healthy diet. We discussed that if she has any vascular concerns, she can reach out to us at any point. We will follow up with her only as needed. Thank you for allowing us to participate in the patient's care. If there are any questions or concerns, please do not hesitate to reach out to us. Coding Level of Care Code Est Pt Level 4 (17691) Diagnoses Varicose veins of both lower extremities with inflammation I83.11; I83.12 Comment Review of venous insufficiency ultrasound
--- OUTSIDE RECORDS SUMMARY | 2024-05-18 19:01 | XMS_ITS | Clinical Summary ---
Author Organization [employer] Address [address] [place] [address] [address] [place] [address] Care Team Providers Care Mold Capper Name Role Phone Unavailable Primary Care Provider [...] Vaccines (1 of 2) 12/25/2005 Pneumococcal Vaccine: 50+ Years (2 of 2 - PCV) 12/03/2015 12/02/2014 COVID-19 Vaccine (3 - 2023-2 5 [...]
--- OUTSIDE RECORDS SUMMARY | 2024-05-18 19:01 | XMS_ITS | Encounter Summary ---
Author Organization [employer] [facility] Address [address] [place] [address] [address] [place] [address] Care Team Providers Care Grab Driver Name Role Phone Unavailable Primary Care Provider [...]
--- OUTSIDE RECORDS SUMMARY | 2024-05-18 19:01 | XMS_ITS | Encounter Summary ---
Author Organization [facility] Address [address] [place] [address] [address] [place] [address] Care Team Providers Care Wheel And Pinion Inspector Name Role Phone Unavailable Primary Care Provider [...]
== END 2024-05-18 15:49 | disposition home or self-care (01) ==
PROVIDERS: PCP Internal Medicine; Visit Provider Physician Assistant Surgical
DX: I83.11 Varicose veins of right lower extremity with inflammation (principal); I83.12 Varicose veins of left lower extremity with inflammation
CPT/HCPCS: 99214

== ENCOUNTER → 2024-05-18 15:14 | Outpatient (BNVA) | payer MEDICARE, SELFPAY | PROVIDERS: PCP Internal Medicine; Visit Provider Physician Assistant Surgical | DX: I83.11 Varicose veins of right lower extremity with inflammation (principal); I83.12 Varicose veins of left lower extremity with inflammation | CPT/HCPCS: 99212 ==

== ENCOUNTER 2024-06-24 15:34 | Outpatient (AMB) | payer MEDICARE, SELFPAY ==
--- NOTE | 2024-06-24 15:46 | MHC.PC.OV ---
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 Accompanied by: Self / Same As Patient Allergies oxycodone [From PERCOCET] Allergy (Intermediate, Verified 06/24/24 16:01) DIFF BREATHING Medication List - Last Reconciled 06/24/24 by Antonette Stanley MD albuterol sulfate 90 mcg/actuation 2 puffs inhalation Q6H PRN blood pressure monitor As directed losartan 100 mg PO DAILY 90 days Tobacco use date assessed: 06/24/24 Fall risk assessment: No Falls in past year Last assessed Fall Risk: 06/24/24 Dental Screening Dental Screen Date: 06/24/24 Did you have a dental visit in the last 12 months?: No Did you have a dental problem in the last 6 months where you did not have access to dental care?: No Was dental information given to patient?: Patient has dentist HPI HPI Comments History of Present Illness Details The patient is a 68-year-old female presenting with essential hypertension and concerns regarding hypercholesterolemia. Recently, the patient has experienced elevated blood pressure readings, correlating this to running out of prescribed antihypertensive medication and frequent caffeine intake. Losartan at 100 mg is part of her usual management, which she has temporarily ceased. She expressed interest in understanding the impact of sugar on her condition? In terms of cholesterol management, the patient was informed of elevated cholesterol levels in the past, and anticipates follow-up lab work in four months. She has observed ocular changes, which she was told might indicate hypercholesterolemia. The patient has started supplementing calcium and vitamin D following the diagnosis of osteopenia from a recent bone density scan. Despite having leg pain, vascular assessments have not revealed significant findings, suggesting a need for further exploration into non-vascular causes such as osteoarthritis. Mild asthma stable with rescue inhaler as needed. [facility] Medical History (Updated 06/24/24 @ 17:43 by Antonette Stanley MD) Benítez esophagus HTN (hypertension) Excessive subcutaneous fat Dermatochalasis of eyelid Myositis Protrusion of lumbar intervertebral disc Dyslipidemia Hair loss GERD (gastroesophageal reflux disease) High cholesterol Surgical History History of rectal sphincterotomy (11/17/23) History of colonoscopy History of esophagogastroduodenoscopy History of removal of cyst History of surgery History of hemorrhoidectomy History of tubal ligation Family History Father Diabetes Hypertension Mother Hypertension Diabetes Lung cancer Skin cancer Arthritis Paternal Aunt Stroke Social History Household Members: None Housing: House Are you a primary career development director to a significant other at home: No Do you presently have visiting nurse or other home services: No Alcohol intake: current Alcohol intake frequency: holidays/special occasions only Alcohol type: wine Patient Tobacco Use Status: Former Tobacco user Tobacco use type: Cigarette e-Cigarette/Vaping Use: Never Used Second Hand Smoke Exposure: No Advance Directives Date on File: 09/23/22 service: No Current occupational status: employed 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 1. Little interest or pleasure in doing things: not at all 2. Feeling down, depressed, or hopeless: not at all 3. Trouble falling or staying asleep, or sleeping too much: not at all 4. Feeling tired or having little energy: not at all 5. Poor appetite or overeating: not at all 6. Feeling bad about yourself - or that you are a failure or have let yourself or your family down: not at all 7. Trouble concentrating on things, such as reading the newspaper or watching television: not at all 8. Moving or speaking so slowly that other people could have noticed. Or the opposite - being so fidgety or restless that you have been moving around a lot more than usual: not at all 9. Thoughts that you would be better off or of hurting yourself in some way: not at all Total score: 0 Depression Screening Interpretation: Negative Depression Screening Done: Yes 56327 - PHQ-9 Billing: Yes Source: Developed by Drs. Kostas Norris, Mana Garcia, Jeff Blanco and colleagues, with an educational solitario from [employer]. Thrive Questionnaire Date Thrive assessed: 06/24/24 I am a: Patient What is your living situation today?: I have a steady place to live Within the past 12 months, did the food you bought not last and you didn't have the money to get more?: Never true Within the past 12 months, did you worry whether your food would run out before you got money to buy more?: Never true Do you have trouble paying for medicines?: No Do you have trouble getting transportation to medical appointments?: No Do you have trouble paying your heating and electricity bill?: No Do you have trouble taking care of your child, family member or friend?: No Do you have trouble with day-to-day activities such as bathing, preparing meals, shopping, managing finances, etc.?: No Are you currently unemployed and looking for a job?: No Are you interested in more education?: No Please select the resources that you would like help with: None Currently or been in a relationship where the following occur: No concerns reported THRIVE Score: 0 AUDIT C Alcohol Use Questionnaire (AUDIT-C) 1. How often do you have a drink containing alcohol?: Never 2. How many drinks containing alcohol do you have on a typical day when you are drinking?: 1 or 2 3. How often do you have six or more drinks on one occasion?: Never Total Score: 0 Score Reviewed/Action Taken: No TAE-7 AMB Questionnaire TAE-7 Date TAE - 7 assessed: 06/24/24 Feeling nervous, anxious, or on edge: 0 = Not at all Not being able to stop or control worryin = Not at all Worrying too much about different things: 0 = Not at all Trouble relaxin = Not at all Being so restless that it is hard to sit still: 0 = Not at all Becoming easily annoyed or irritable: 0 = Not at all Feeling afraid as if something awful might happen: 0 = Not at all Total TAE-7 score (0-4 normal; 5-9 mild; 10-14 moderate; 15-21 severe): 0 Source: Developed by Drs. Kostas Norris, Mana Garcia, Jeff Blanco and colleagues, with an educational solitario from [employer]. TAE-7 Assessment Billing TAE-7 Assessment Tool: TAE-7 Assessment 60228 Review of Systems Const All systems reviewed & are unremarkable except as noted in HPI and below Card Denies chest pain at rest, Denies chest pain with activity, Denies edema, Denies irregular heart rhythm, Denies claudication, Denies dyspnea, Denies dyspnea on exertion, Denies orthopnea, Denies paroxysmal nocturnal dyspnea and Denies slow heart rate Resp Denies cough, Denies dyspnea and Denies dyspnea on exertion GI Denies abdominal pain, Denies change in bowel habits, Denies excessive flatus, Denies nausea and Denies vomiting Denies urinary incontinence, Denies urinary hesitancy and Denies urinary urgency Neuro Denies lack of coordination Physical exam (Primary Care) Vital Signs: Last Vital Signs BP 168/90 H 06/24/24 15:47 BMI result Body Mass Index 25.0 Tobacco/Smoking Status: Tobacco use Status Tobacco use date assessed 06/24/24 06/24/24 15:55 Patient Tobacco Use Status Former Tobacco user 06/24/24 15:52 Tobacco use type Cigarette 06/24/24 15:52 e-Cigarette/Vaping Use Never Used 06/24/24 15:52 PHQ-9: PHQ-9 Score PHQ-9: Total score 0 06/24/24 16:02 Depression Screening Interpretation: Negative Thrive Assessment: Date of Thrive Assessment Date Thrive assessed 06/24/24 06/24/24 15:57 Currently or been in a relationship where the following occur: No concerns reported Resp Effort & Inspection: normal respiratory effort Auscultation: clear to auscultation bilaterally Cardio Jugular venous distension: no JVD Rate: regular rate Rhythm: regular rhythm Heart sounds: S1 normal heart sound present and S2 normal heart sound present Extrem General: Yes full ROM Coding Level of Care Code Est Pt Level 4 (56673) Complex EM visit Add On G2211 Diagnoses Osteopenia M85.80 Essential hypertension I10 Dyslipidemia E78.5 Mild asthma J45.909 Additional Codes TAE-7 Assessment Billing - TAE-7 Assessment Tool: TAE-7 Assessment 92756 ([id number]) PHQ-9 - 99960 - PHQ-9 Billing: Yes ([id number]) Time Spent (min) 22 Assessment & Plan Assessment & Plan (1) Osteopenia: Code(s): M85.80 - Other specified disorders of bone density and structure, unspecified site Category: Medical (2) Essential hypertension: Code(s): I10 - Essential (primary) hypertension Category: Medical (3) Dyslipidemia: Code(s): E78.5 - Hyperlipidemia, unspecified Category: Medical (4) Mild asthma: Code(s): J45.909 - Unspecified asthma, uncomplicated Category: Medical Plan The patient's plan involves resuming Losartan 100 mg to manage blood pressure and a follow-up cholesterol test in four months to assess hypercholesterolemia. Further lifestyle adjustments include reducing caffeine, monitoring sugar intake, and continuing calcium with vitamin D supplementation for osteopenia management. Given the absence of vascular causes for leg pain, a non-invasive approach will be considered. No referrals are necessary at this point based on recent evaluations. Patient was informed and verbally consented to the use of an ambient scribe for clinic note documentation during this visit. During this evaluation, I discussed the management of essential hypertension by resuming her antihypertensive regimen of Losartan 100 mg. We reviewed potential contributors to elevated blood pressure, including caffeine intake. Regarding hypercholesterolemia, the need for follow-up cholesterol testing in four months was noted. I advised lifestyle modifications reducing caffeine and considering dietary sugar impacts. For osteopenia, I reiterated the benefits of calcium with vitamin D supplementation. We also addressed her leg pain, acknowledging the prior vascular consult's outcomes and discussing the exploration of potential musculoskeletal contributors. Orders: Orders Lipid Panel 4 Months E78.5 - Hyperlipidemia, unspecified Comprehensive Met. Panel 4 Months E78.00 - Pure hypercholesterolemia, unspecified Medications: New calcium carbonate-vitamin D3 500 mg-10 mcg (400 unit) (Oyster Shell Calcium-Vitamin D3) 1 tab PO BID 180 tabs 1RF 90 days M85.80 - Other specified disorders of bone density and structure, unspecified site Refilled losartan 100 mg PO DAILY 90 tabs 1RF 90 days Patient Instructions: - Resume Losartan 100 mg as prescribed for blood pressure management. - Plan for cholesterol testing in four months. - Limit caffeine intake and monitor dietary sugar. - Continue taking calcium with vitamin D supplements. - Monitor leg pain and report any changes. - Contact the office with any new symptoms or concerns.
[2024-06-24 15:47] VITALS: BP 168/90; BMI 25.0
--- OUTSIDE RECORDS SUMMARY | 2024-06-24 16:54 | XMS_ITS | Encounter Summary ---
Author Organization [employer] [facility] Address [address] [place] [address] [address] [place] [address] Care Team Providers Care Jack Tamp Operator Name Role Phone Unavailable Primary Care Provider [...]
--- OUTSIDE RECORDS SUMMARY | 2024-06-24 16:54 | XMS_ITS | Encounter Summary ---
Author Organization [employer] [facility] Address [address] [place] [address] [address] [place] [address] Care Team Providers Care Bandoleer Packer Name Role Phone Unavailable Primary Care Provider [...]
--- OUTSIDE RECORDS SUMMARY | 2024-06-24 16:54 | XMS_ITS | Clinical Summary ---
Author Organization [employer] Address [address] [place] [address] [address] [place] [address] Care Team Providers Care Pest Control Operator Name Role Phone Unavailable Primary Care [...]
== END 2024-06-24 16:14 | disposition home or self-care (01) ==
LOC: HO.HMCH 15:35
PROVIDERS: PCP Internal Medicine; Visit Provider Internal Medicine
DX: M85.80 Other specified disorders of bone density and structure, unspecified site (principal); I10 Essential (primary) hypertension; E78.5 Hyperlipidemia, unspecified; J45.909 Unspecified asthma, uncomplicated

== ENCOUNTER → 2024-06-24 15:34 | Outpatient (BNVA) | payer MEDICARE, SELFPAY | PROVIDERS: PCP Internal Medicine; Visit Provider Internal Medicine | DX: M85.80 Other specified disorders of bone density and structure, unspecified site (principal); E78.5 Hyperlipidemia, unspecified; I10 Essential (primary) hypertension; J45.909 Unspecified asthma, uncomplicated | CPT/HCPCS: 96127; 99212 ==

== ENCOUNTER 2024-07-08 15:22 | Outpatient (AMB) | payer MEDICARE, SELFPAY ==
--- NOTE | 2024-07-08 15:55 | A.OFFVIS_ITS ---
Intake Visit Reasons: US follow up Slat Basket Maker Helper Machine Required: Yes Slat Basket Maker Helper Machine Language: Pigment Grinder Services: Slat Basket Maker Helper Machine Present Slat Basket Maker Helper Machine Name: Rosalina Hydrogen Power Plant Manager: Hydrogen Power Plant Manager Present Allergies oxycodone [From PERCOCET] Allergy (Intermediate, Verified 07/08/24 15:57) DIFF BREATHING Is last menstrual period known: Yes HPI Comments Details: Patient is here today for a follow up pelvic ultrasound. She admits to random pain throughout the pelvis at times, has a history of IBS. Denies any vaginal bleeding. [facility] Medical History Benítez esophagus HTN (hypertension) Excessive subcutaneous fat Dermatochalasis of eyelid Myositis Protrusion of lumbar intervertebral disc Dyslipidemia Hair loss GERD (gastroesophageal reflux disease) High cholesterol Surgical History History of rectal sphincterotomy (11/17/23) History of colonoscopy History of esophagogastroduodenoscopy History of removal of cyst History of surgery History of hemorrhoidectomy History of tubal ligation Family History Father Diabetes Hypertension Mother Hypertension Diabetes Lung cancer Skin cancer Arthritis Paternal Aunt Stroke Social History Household Members: None Housing: House Are you a primary director career to a significant other at home: No Do you presently have visiting nurse or other home services: No Alcohol intake: current Alcohol intake frequency: holidays/special occasions only Alcohol type: wine Patient Tobacco Use Status: Former Tobacco user Tobacco use type: Cigarette e-Cigarette/Vaping Use: Never Used Second Hand Smoke Exposure: No Advance Directives Date on File: 09/23/22 service: No Current occupational status: employed 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 Current occupational exposures/hazards: No Cognitive needs: No Hearing needs: No Vision needs: No Review of Systems Const All systems reviewed & are unremarkable except as noted in HPI and below Endo Reports no additional complaints Physical Exam Const General: cooperative, healthy appearing and no acute distress Psych Appearance: well kempt Attitude: cooperative Thought process: Normal thought process present Results Reviewed Results Reviewed: [address] [address] Ultrasound Report Signed Patient: Fior Bravo#: [id number] : 1955 Acct:[id number] Age/Sex: 68 / F ADM Date: 03/12/24 Loc: HO.US Attending Dr: Laura Bowles CNM Ordering Physician: Laura Bowles CNM Date of Service: 03/12/24 Procedure(s): US pelvic and transvaginal Accession Number(s): [id number] cc: Laura Bowles CNM; Antonette Adam MD~ EXAMINATION: US PELVIS CLINICAL INFORMATION: Leiomyoma, postmenopausal. COMPARISON: 01/31/2023 TECHNIQUE: Ultrasound of the pelvis is performed using both transabdominal and transvaginal transducers along with Doppler. Transvaginal imaging is performed due to inadequate visualization transabdominally. FINDINGS: The anteverted uterus measures 8.1 x 2.9 x 4.8 cm. 0.5 x 0.4 x 0.5 cm uterine mass, previously 0.6 x 0.5 x 0.6 cm, characteristic of a fibroid. Heterogeneous uterine echotexture. Small amount of fluid within the endometrial cavity with possible complex echoes. Echogenic foci anterior to the endometrium redemonstrated, characteristic of calcifications. Right ovary not clearly visualized on transvaginal ultrasound images. Right ovary measures 1.8 x 1.3 x 0.6 cm, volume 0.7 mL. Left ovary measures 1.6 x 1.1 x 0.9 cm, volume 0.8 mL. Tubular anechoic structure in the left adnexa may possibly represent a hydrosalpinx and was not appreciated on the prior study. Double wall endometrial thickness is 1.2 mm. Please note that evaluation of the adnexal regions was limited on transvaginal ultrasound images as patient experienced discomfort per clerk's statement. US/US pelvic and transvaginal IMPRESSION: 1. Stable 0.5 cm uterine mass characteristic of a fibroid. Heterogeneous uterine echotexture. 2. Double wall endometrial thickness is 1 mm. Small amount of fluid within the endometrial cavity with possible complex echoes. Echogenic foci anterior to the endometrium redemonstrated, characteristic of calcifications. 3. Tubular anechoic structure in the left adnexa may possibly represent a hydrosalpinx and was not appreciated on the prior study. 4. Please note that evaluation of the adnexal regions was limited on transvaginal ultrasound images as patient experienced discomfort per clerk's statement. Electronically signed by: Taniya Khan MD 04/14/2024 02:27 PM EST Dictated By: Taniya Khan MD Signed By: <Electronically signed by Taniya Khan MD in OV> 04/14/24 1427 DD/ 1351 TD/TT: 03/12/24 1409 Barber Stylist: Assessment & Plan Assessment & Plan (1) Fibroid: Code(s): D21.9 - Benign neoplasm of connective and other soft tissue, unspecified Category: Medical Plan: Discuss fibroid, smaller than last evaluation 2022. Counseled re: Leiomyoma: common pelvic neoplasm. Report any PMB, pelvic pressure, bloating, or pain. Referral to MD if indicated for level of care if indicated. (2) Abnormal finding on ultrasound: Code(s): R93.89 - Abnormal findings on diagnostic imaging of other specified body structures Plan: Discussed ultrasound findings. Plan US/US pelvic and transvaginal IMPRESSION: 1. Stable 0.5 cm uterine mass characteristic of a fibroid. Heterogeneous uterine echotexture. 2. Double wall endometrial thickness is 1 mm. Small amount of fluid within the endometrial cavity with possible complex echoes. Echogenic foci anterior to the endometrium redemonstrated, characteristic of calcifications. 3. Tubular anechoic structure in the left adnexa may possibly represent a hydrosalpinx and was not appreciated on the prior study. 4. Please note that evaluation of the adnexal regions was limited on transvaginal ultrasound images as patient experienced discomfort per clerk's statement. Plan follow up next week with Dr. Huertas for consult. The patient expressed understanding and agreement with the plan of care. All of her questions and concerns were addressed to the best of my ability. This note is constructed using voice recognition software. While every effort has been made to ensure accuracy, environmental research project manager errors may have been included. Coding Level of Care Code Est Pt Level 3 (10396) Diagnoses Fibroid D21.9 Abnormal finding on ultrasound R93.89
--- OUTSIDE RECORDS SUMMARY | 2024-07-08 18:02 | XMS_ITS | Encounter Summary ---
Author Organization [employer] [facility] Address [address] [place] [address] [address] [place] [address] Care Team Providers Care Sewer And Drain Technician Name Role Phone Unavailable Primary Care Provider [...]
--- OUTSIDE RECORDS SUMMARY | 2024-07-08 18:02 | XMS_ITS | Clinical Summary ---
Author Organization [employer] Address [address] [place] [address] [address] [place] [address] Care Team Providers Care Grass Cutter Name Role Phone Unavailable Primary Care Provider [...]
--- OUTSIDE RECORDS SUMMARY | 2024-07-08 18:02 | XMS_ITS | Encounter Summary ---
Author Organization [employer] [facility] Address [address] [place] [address] [address] [place] [address] Care Team Providers Care Health Occupations Instructor Name Role Phone Unavailable Primary Care Provider [...]
== END 2024-07-08 16:49 | disposition home or self-care (01) ==
LOC: HO.HWS 15:22
PROVIDERS: PCP Internal Medicine; Visit Provider Advanced Practice Midwife
DX: D21.9 Benign neoplasm of connective and other soft tissue, unspecified (principal); R93.89 Abnormal findings on diagnostic imaging of other specified body structures
CPT/HCPCS: 99213

== ENCOUNTER → 2024-07-08 15:22 | Outpatient (BNVA) | payer MEDICARE, SELFPAY | PROVIDERS: PCP Internal Medicine; Visit Provider Advanced Practice Midwife | DX: D21.9 Benign neoplasm of connective and other soft tissue, unspecified (principal); R93.89 Abnormal findings on diagnostic imaging of other specified body structures | CPT/HCPCS: 99212 ==

== ENCOUNTER 2024-07-20 11:37 | Outpatient (AMB) | payer MEDICARE, SELFPAY ==
--- NOTE | 2024-07-20 11:45 | MHC.OFFVIS ---
Vital Signs 07/20/24 11:56 Height 4 ft 11 in Weight 124 lb BMI 25.0 Intake Visit Reasons: Hysteroscopy consult Manager Technical Services Required: Yes Manager Technical Services Language: Drying Machine Back Tender Services: Manager Technical Services Present (in person) Manager Technical Services Name: Rosalina GONZALEZ Information Interpreted: non-clinical & clinical Fermenter Operator: Fermenter Operator Present Accompanied by: Self / Same As Patient Allergies oxycodone [From PERCOCET] Allergy (Intermediate, Verified 07/20/24 11:56) DIFF BREATHING Is last menstrual period known: Yes Last menstrual period: 01/20/20 Post menopausal: Yes Patient : No Do you need a note to return to daycare/school/sports/work: Yes (for surgery on friday) HPI Comments Details: The patient was referred from Laura Bowles regarding abnormal endometrium by ultrasound. The patient initially had pelvic pain with no vaginal bleeding pelvic ultrasound done in 03/16 showed the following: IMPRESSION: 1. Stable 0.5 cm uterine mass characteristic of a fibroid. Heterogeneous uterine echotexture. 2. Double wall endometrial thickness is 1 mm. Small amount of fluid within the endometrial cavity with possible complex echoes. Echogenic foci anterior to the endometrium redemonstrated, characteristic of calcifications. 3. Tubular anechoic structure in the left adnexa may possibly represent a hydrosalpinx and was not appreciated on the prior study. 4. Please note that evaluation of the adnexal regions was limited on transvaginal ultrasound images as patient experienced discomfort per silverware supervisor's statement. Pain has resolved but the patient developed an episode of vaginal bleeding few weeks ago. Last co testing in 04/14 was negative PFSH Medical History Benítez esophagus HTN (hypertension) Excessive subcutaneous fat Dermatochalasis of eyelid Myositis Protrusion of lumbar intervertebral disc Dyslipidemia Hair loss GERD (gastroesophageal reflux disease) High cholesterol Surgical History History of rectal sphincterotomy (11/17/23) History of colonoscopy History of esophagogastroduodenoscopy History of removal of cyst History of surgery History of hemorrhoidectomy History of tubal ligation Family History Father Diabetes Hypertension Mother Hypertension Diabetes Lung cancer Skin cancer Arthritis Paternal Aunt Stroke Social History Household Members: None Housing: House Are you a primary adult live in caregiver to a significant other at home: No Do you presently have visiting nurse or other home services: No Alcohol intake: current Alcohol intake frequency: holidays/special occasions only Alcohol type: wine Patient Tobacco Use Status: Former Tobacco user Tobacco use type: Cigarette e-Cigarette/Vaping Use: Never Used Second Hand Smoke Exposure: No Advance Directives Date on File: 09/23/22 service: No Current occupational status: employed 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 Current occupational exposures/hazards: No Cognitive needs: No Hearing needs: No Vision needs: No Female Reproductive History Menstrual Date of last menstrual period: 01/20/20 Total pregnancies: 2 Full term: 2 Review of Systems Card Reports as per HPI and Reports no additional complaints Resp Reports as per HPI and Reports no additional complaints GI Reports as per HPI and Reports no additional complaints Reports as per HPI Physical Exam Vital Signs: BMI result Body Mass Index 25.0 Const General: cooperative, healthy appearing and comfortable Resp Effort & Inspection: normal respiratory effort Auscultation: clear to auscultation bilaterally Percussion: percussion normal Cardio Palpation: normal PMI Rate: regular rate Rhythm: regular rhythm Heart sounds: no murmurs and no rubs Peripheral pulses: Peripheral pulses 2+ throughout GI Inspection: Yes normal to inspection Palpation (GI): Soft to palpation, nontender, no guarding, not rigid and No hepatosplenomegaly present Percussion: Yes normal to percussion Auscultation: normal bowel sounds Rectal Exam - Female: deferred Assessment & Plan Assessment & Plan (1) Post-menopausal bleeding: Comment: abn endo, endo fluid with complex echos Code(s): N95.0 - Postmenopausal bleeding Category: Medical Plan: Discussed with the patient the finding on ultrasound and the episodes of vaginal bleeding, differential diagnosis discussed with the patient includes but not limited to endometrial hyperplasia or malignancy or polyp. Although endometrial lining is 1.2 cm but given the complex echos of the endometrial fluid by ultrasound and an episode of vaginal bleeding recommended hysteroscopy D&C possible polypectomy/myomectomy. Discussed with the patient the procedure , all benefits and risks including but not limited to inability to complete the procedure , insufficient endometrial tissue for a complete evaluation of the endometrial cavity , bleeding, infection, possible need for blood transfusion with all its risk ( HIV,syphilis, Hepatitis, anaphylaxis shock, others..), injury to bladder, rectum, possible need for laparoscopy/laparotomy or hysterectomy. The patient verbalized understanding and signed the consent. Instructions given the patient to stay NPO after midnight the day prior to the procedure and to take only the specific medication (s) discussed the morning of the surgical procedure and to schedule a 2 week postoperative appointment (2) Hydrosalpinx: Code(s): N70.11 - Chronic salpingitis Category: Medical Plan: Discussed with the patient the finding on ultrasound in 05/17, recommended repeat ultrasound to follow-up on the finding of possible hydrosalpinx. Will check the results and treat accordingly Orders: Orders US pelvic and transvaginal Today N70.11 - Chronic salpingitis Coding Level of Care Code Est Pt Level 3 (34238) Diagnoses Post-menopausal bleeding N95.0 Hydrosalpinx N70.11
[2024-07-20 11:56] VITALS: BMI 25.0
--- OUTSIDE RECORDS SUMMARY | 2024-07-20 13:45 | XMS_ITS | Clinical Summary ---
Author Organization [employer] [facility] Address [address] [place] [address] [address] [place] [address] Care Team Providers Care Accounts Payable Supervisor Name Role Phone Unavailable Primary Care Provider [...]
--- OUTSIDE RECORDS SUMMARY | 2024-07-20 13:45 | XMS_ITS | Encounter Summary ---
Author Organization [facility] Address [address] [place] [address] [address] [place] [address] Care Team Providers Care Electrician Assistant Name Role Phone Unavailable Primary Care Provider [...]
--- OUTSIDE RECORDS SUMMARY | 2024-07-20 13:45 | XMS_ITS | Encounter Summary ---
Author Organization [facility] Address [address] [place] [address] [address] [place] [address] Care Team Providers Care Canine Deputy Name Role Phone Unavailable Primary Care Provider [...]
== END 2024-07-20 12:44 | disposition home or self-care (01) ==
LOC: HO.HWS 11:37
PROVIDERS: PCP Internal Medicine; Visit Provider Obstetrics & Gynecology
DX: N95.0 Postmenopausal bleeding (principal); N70.11 Chronic salpingitis
CPT/HCPCS: 99213

== ENCOUNTER → 2024-07-20 11:37 | Outpatient (BNVA) | payer MEDICARE, SELFPAY | PROVIDERS: PCP Internal Medicine; Visit Provider Obstetrics & Gynecology | DX: N95.0 Postmenopausal bleeding (principal); N70.11 Chronic salpingitis | CPT/HCPCS: 99212 ==

== ENCOUNTER 2024-07-23 05:54 | Day surgery (SDC) | payer MEDICARE, SELFPAY ==
--- NOTE | 2024-07-21 11:00 | P.CONAN_ITS ---
Documented by User: Johana Edwards NP 07/21/24 11:00 HPI - Anesthesia Eval Consult details Narrative: 68yo F for D&C Hysteroscopy, possible myomectomy / polypectomy PMFSH Active Problems Active Problems: All Active Problems Hydrosalpinx (Acute) Post-menopausal bleeding (Acute) Mild asthma (Acute) Osteopenia (Acute) Ear discomfort (Acute) Varicose veins of both lower extremities with inflammation (Acute) Venous insufficiency (Acute) Fibroid (Acute) Encounter for well woman exam with routine gynecological exam (Acute) Bloating symptom (Acute) Abdominal discomfort (Acute) Fatigue (Acute) Frequent bowel movements (Acute) Immunization due (Acute) Physical exam (Acute) Anal fissure (Acute) Hypovitaminosis D (Acute) Ear discomfort (Acute) Upper respiratory tract infection (Acute) Personal history of colonic polyps (Acute) Post-menopausal (Acute) Flank mass (Acute) Osteoarthritis of lumbar spine (Acute) Excessive cerumen in both ear canals (Acute) Preoperative clearance (Acute) Uncontrolled hypertension (Acute) Encounter to discuss test results (Acute) Encounter for repeat Pap smear due to previous insufficient cervical cells (Acute) Hemorrhoids (Acute) Lump of skin of back (Acute) Preop cardiovascular exam (Acute) Essential hypertension (Acute) Pain in pelvis (Acute) Abnormal EKG (Acute) Obesity (Acute) Encounter for pre-operative cardiovascular clearance (Acute) Folliculitis (Acute) Alopecia (Acute) GERD with esophagitis (Acute) Benítez esophagus (Acute) Family history of hypertension (Acute) Low back pain (Acute) Excessive subcutaneous fat (Acute) High cholesterol (Acute) Myositis (Acute) Protrusion of lumbar intervertebral disc (Acute) Dyslipidemia (Acute) Hair loss (Acute) Past Medical History Medical History Benítez esophagus HTN (hypertension) Excessive subcutaneous fat Dermatochalasis of eyelid Myositis Protrusion of lumbar intervertebral disc Dyslipidemia Hair loss GERD (gastroesophageal reflux disease) High cholesterol Family History Family History Father Diabetes Hypertension Mother Hypertension Diabetes Lung cancer Skin cancer Arthritis Paternal Aunt Stroke Family history of problems with anesthesia: No Surgical History Surgical History History of rectal sphincterotomy (11/17/23) History of colonoscopy History of esophagogastroduodenoscopy History of removal of cyst History of surgery History of hemorrhoidectomy History of tubal ligation History of Problems with Anesthesia: No Social History Social History Household Members: None Housing: House Are you a primary health care recruiter to a significant other at home: No Do you presently have visiting nurse or other home services: No Alcohol intake: current Alcohol intake frequency: holidays/special occasions only Alcohol type: wine Patient Tobacco Use Status: Former Tobacco user Tobacco use type: Cigarette e-Cigarette/Vaping Use: Never Used Second Hand Smoke Exposure: No Use of substances other than those prescribed or required for medical reasons: No Are you DNR?: No Advance Directives: No Advance Directives Information Provided: Yes Advance Directives Date on File: 09/23/22 : No Poor oral hygiene: No service: No Current occupational status: employed 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 Current occupational exposures/hazards: No Cognitive needs: No Hearing needs: No Vision needs: No Meds Allergies Allergy/AdvReac Type Severity Reaction Status Date / Time oxycodone [From PERCOCET] Allergy Intermediate DIFF Verified 07/20/24 11:56 BREATHING Assessment and Plan Assessment Anesthesia Assessment: Chart Reviewed Final Anesthetic Review Family History of Problems with Anesthesia: No History of Problems with Anesthesia: No Documented by User: Ban Jones MD 07/23/24 07:13 [facility] Past Medical History Medical History Benítez esophagus HTN (hypertension) Excessive subcutaneous fat Dermatochalasis of eyelid Myositis Protrusion of lumbar intervertebral disc Dyslipidemia Hair loss GERD (gastroesophageal reflux disease) High cholesterol Family History Family History Father Diabetes Hypertension Mother Hypertension Diabetes Lung cancer Skin cancer Arthritis Paternal Aunt Stroke Surgical History Surgical History History of rectal sphincterotomy (11/17/23) History of colonoscopy History of esophagogastroduodenoscopy History of removal of cyst History of surgery History of hemorrhoidectomy History of tubal ligation Social History Social History Household Members: None Housing: House Are you a primary health care recruiter to a significant other at home: No Do you presently have visiting nurse or other home services: No Alcohol intake: current Alcohol intake frequency: holidays/special occasions only Alcohol type: wine Patient Tobacco Use Status: Former Tobacco user Tobacco use type: Cigarette e-Cigarette/Vaping Use: Never Used Second Hand Smoke Exposure: No Use of substances other than those prescribed or required for medical reasons: No Are you DNR?: No Advance Directives: No Advance Directives Information Provided: Yes Advance Directives Date on File: 09/23/22 : No Poor oral hygiene: No service: No Current occupational status: employed 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 Current occupational exposures/hazards: No Cognitive needs: No Hearing needs: No Vision needs: No Meds Allergies Allergy/AdvReac Type Severity Reaction Status Date / Time oxycodone [From PERCOCET] Allergy Intermediate DIFF Verified 07/20/24 11:56 BREATHING Exam Airway Mallampati Class: I TM Dist: >3cm Neck ROM: Full Assessment and Plan Assessment Anesthesia Assessment: Anesthesia Plan Discussed Final Anesthetic Review NPO: Yes ASA Class: II Final Preanesthetic Review: No Changes in Pt Med Stat, Meds/Allgs Chart Reviewed, Consent Obtained/Reviewed and Anes Risks/Benef Reviewed Patient Risk: Low Procedure Risk: Low Anesthetic Plan Anesthetic Plan: GA Disposition: Standard PACU
[2024-07-23] VITALS (9 sets, daily range): BP systolic 115–168; BP diastolic 70–88; PULSE 59–80; RESP 12–16; TEMP 36.2–37.1; O2SAT 96–100; BMI 25.2
[2024-07-23] MEDS: Lactated Ringers 1,000 ML 100 ML IVCONT (06:35)
--- NOTE | 2024-07-23 07:28 | MHC.SHP ---
Pre-Procedural Eval Section A - 24 Hr Update-Section A only Date of Service: 07/23/24 The patient is an INPATIENT: No Changes since office visit: No Cold of Flu in the past 2 weeks, No New Medical Problems, No Changes in Medication and No Patient answered all questions The patient has been examined within 24 hours of the surgical procedure. The History & Physical has been completed within 30 days and I have reviewed it.: Yes Section B - Complete if H&P > 30 days Chief Complaint: Postmenopausal bleeding Allergies: Allergies Allergy/AdvReac Type Severity Reaction Status Date / Time oxycodone [From PERCOCET] Allergy Intermediate DIFF Verified 07/20/24 11:56 BREATHING Plan Diagnosis/Plan: Unchanged I have reviewed the history and physical and performed a pertinent physical examination on my patient. No changes have occurred unless specified. Time Spent With Patient Time: Total time managing care of this patient today ____ minutes.
--- NOTE | 2024-07-23 08:04 | PM.OP ---
Brief Operative Note Date of Service: 07/23/24 Pre-op diagnosis: Postmenopausal bleeding Post-op diagnosis: same (Endometrial polyp) Procedure: Hysteroscopy D&C, Polypectomy Surgeon: Lauro Huertas MD Anesthesia: GLMA Was an Police Inspector used for this Procedure?: No Estimated blood loss (mL): 0 Pathology: other (Endometrial Scrapping. Polyp) Condition: stable Disposition: PACU
--- NOTE | 2024-07-23 08:05 | P.OP_ITS ---
Operative Note Operative Note Date of Service: 07/23/24 Narrative: Preop Diagnosis: Postmenopausal bleeding Operation: Diagnostic Hysteroscopy, Dilataion & Curettage and polypectomy Post Op Diagnosis: Endometrial Polyp QBL: Minimal Anesthesia: GLMA Surgeon: Lauro Huertas MD Toll Testboard Worker: None Complication: None Pathology: Endometrial Scrapings, Endometrial polyp Procedure: The patient was put in the dorsal lithotomy position, scrubbed, and draped in the usual manner. A sterile speculum was inserted in the patient's vagina. The anterior lip of the cervix was grasped with a single tooth tenaculum. The cervix was dilated up to 5 mm, then the scope was inserted in the patient's uterus. Inspection revealed endometrial polyp. The Myosure Reach device was used; it was introduced through the operative channel and polypectomy done with no complications. The scope was then taken out from the uterine cavity, sharp curettings was carried on with minimal to moderate amount of tissues retrieved. At the end of the procedure, all instruments were taken out of the patient uterine and vaginal cavity. The single tooth tenaculum was removed and homeostasis was assured using pressure,. The patient tolerated the procedure well and was transferred to the PACU in a stable condition.
[2024-07-23] MEDS: fentaNYL citrate/PF 100 MCG/2 ML VIAL 50 MCG IVPUSH (08:30)
[2024-07-23] MEDS: Acetaminophen 325 MG TABLET 650 MG PO (08:43)
== END 2024-07-23 09:24 | disposition home or self-care (01) ==
PROVIDERS: PCP Internal Medicine; Visit Provider Obstetrics & Gynecology
PROC: 0UDB8ZZ Extraction of Endometrium, Via Natural or Artificial Opening Endoscopic (ICD-10-PCS; CPT 58558; principal; 2024-07-23 07:30)
DX: N95.0 Postmenopausal bleeding (principal); N84.0 Polyp of corpus uteri; N70.11 Chronic salpingitis; I10 Essential (primary) hypertension; E78.00 Pure hypercholesterolemia, unspecified; M60.9 Myositis, unspecified; L65.9 Nonscarring hair loss, unspecified; K22.70 Barrett's esophagus without dysplasia; K21.9 Gastro-esophageal reflux disease without esophagitis; Z88.5 Allergy status to narcotic agent; Z98.890 Other specified postprocedural states; Z87.891 Personal history of nicotine dependence
CPT/HCPCS: 58558; 88305; J1100; J1885; J2003; J2250; J2405; J2704; J3010

== ENCOUNTER → 2024-07-23 05:54 | Outpatient (BNV) | payer MEDICARE, SELFPAY | PROVIDERS: PCP Internal Medicine; Visit Provider Obstetrics & Gynecology | DX: N84.0 Polyp of corpus uteri (principal); N95.0 Postmenopausal bleeding | CPT/HCPCS: 58558 ==

== ENCOUNTER 2024-08-13 14:28 | Outpatient (REF) | payer MEDICARE, SELFPAY ==
--- NOTE | ~2024-08-13 | US_ITS ---
EXAMINATION: US PELVIS CLINICAL INFORMATION: Chronic salpingitis, hydrosalpinx. COMPARISON: 03/12/2024, 01/31/2023, 01/31/2021. TECHNIQUE: Ultrasound of the pelvis is performed using both transabdominal and transvaginal transducers along with Doppler. Transvaginal imaging is performed due to inadequate visualization transabdominally. FINDINGS: Uterus: The uterus is anteverted, anteflexed, and measures 7.5 x 3.5 x 4.1 cm. The cervix demonstrates small nabothian cysts is sonographically normal. The double wall endometrial thickness is 2 mm. Again seen are 2 small calcifications anterior to the endometrium. The uterus is smooth in contour and has heterogeneous myometrial echogenicity. There is a small ventral mid uterine segment fibroid measuring 5 x 4 x 5 mm. This is unchanged. Adnexa: Both ovaries are visualized. There is normal color flow to the adnexa. There is no ovarian torsion. There is no pelvic ascites or fluid collection. Right ovary measures 2.3 x 1.2 x 1.2 cm. Volume = 1.7 mL. Normal sonographic appearance. Left ovary was not seen on today's examination. No left adnexal mass. No definite hydrosalpinx noted. US/US pelvic and transvaginal IMPRESSION: 1. Stable 5 mm uterine intramural fibroid in the ventral mid uterine segment. 2. Endometrial thickness is 2 mm. No endometrial thickening. 3. There are 2 stable calcifications anterior to the formal endometrial cavity, doubtful clinical significance. 4. The left ovary was not visualized. The right ovary is normal. 5. No hydrosalpinx was present on today's examination. Electronically signed by: Jeff Kelly MD 08/13/2024 03:44 PM EDT
--- OUTSIDE RECORDS SUMMARY | 2024-08-13 14:30 | XMS_ITS | Encounter Summary ---
Author Organization [employer] [facility] Address [address] [place] [address] [address] [place] [address] Care Team Providers Care Carry Out Clerk Name Role Phone Unavailable Primary Care Provider Unavailabl e Encounter Details Date Type Department Care Team (Latest Contact Info) Description 11/02/2020 Abstract [facility] CONVERSIONS Dental, Provider, DDS Social History Tobacco [...]
== END 2024-08-13 14:29 | disposition home or self-care (01) ==
LOC: HO.US 14:28
PROVIDERS: PCP Internal Medicine; Visit Provider Obstetrics & Gynecology
DX: N70.11 Chronic salpingitis (principal)
CPT/HCPCS: 76830; 76856

== ENCOUNTER → 2024-08-13 14:30 | Outpatient (BNV) | payer MEDICARE, SELFPAY | PROVIDERS: PCP Internal Medicine; Visit Provider Radiology Diagnostic Radiology | DX: D25.1 Intramural leiomyoma of uterus (principal) | CPT/HCPCS: 76830; 76856 ==

== ENCOUNTER 2024-08-18 14:52 | Outpatient (AMB) | payer MEDICARE, SELFPAY ==
--- NOTE | 2024-08-18 15:22 | A.OFFVIS_ITS ---
Intake Visit Reasons: post op Container Finishing Inspector Required: Yes Container Finishing Inspector Language: Administrative Manager Services: Container Finishing Inspector Present (in person) Container Finishing Inspector Name: LISA Bradford Information Interpreted: non-clinical & clinical Pipeline Dispatch Operator: Pipeline Dispatch Operator Present (Rosalina GONZALEZ) Accompanied by: Self / Same As Patient Allergies oxycodone [From PERCOCET] Allergy (Intermediate, Verified 08/18/24 15:23) DIFF BREATHING HPI Comments Details: The patient is presenting post hysteroscopy D&C no complaints minimal vaginal bl eeding no feverishness chills or abdominal pain. The pathology showed the following: A. Endometrium, polypectomy: Fragments of endometrial polyp; no atypia identified. B. Endometrium, curettage: - Superficial strips of atrophic endometrium. - Few fragments with features of endometrial polyp. - Few fragments of atrophic squamous epithelium. - No atypia identified. Pelvic ultrasound done on 08/13 showed the following: IMPRESSION: 1. Stable 5 mm uterine intramural fibroid in the ventral mid uterine segment. 2. Endometrial thickness is 2 mm. No endometrial thickening. 3. There are 2 stable calcifications anterior to the formal endometrial cavity, doubtful clinical significance. 4. The left ovary was not visualized. The right ovary is normal. 5. No hydrosalpinx was present on today's examination. [facility] Medical History Benítez esophagus HTN (hypertension) Excessive subcutaneous fat Dermatochalasis of eyelid Myositis Protrusion of lumbar intervertebral disc Dyslipidemia Hair loss GERD (gastroesophageal reflux disease) High cholesterol Surgical History History of rectal sphincterotomy (11/17/23) History of colonoscopy History of esophagogastroduodenoscopy History of removal of cyst History of surgery History of hemorrhoidectomy History of tubal ligation Family History Father Diabetes Hypertension Mother Hypertension Diabetes Lung cancer Skin cancer Arthritis Paternal Aunt Stroke Social History Household Members: None Housing: House Are you a primary primary health care nurse to a significant other at home: No Do you presently have visiting nurse or other home services: No Alcohol intake: current Alcohol intake frequency: holidays/special occasions only Alcohol type: wine Patient Tobacco Use Status: Former Tobacco user Tobacco use type: Cigarette e-Cigarette/Vaping Use: Never Used Second Hand Smoke Exposure: No Advance Directives Date on File: 09/23/22 service: No Current occupational status: employed 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 Current occupational exposures/hazards: No Cognitive needs: No Hearing needs: No Vision needs: No Review of Systems Const All systems reviewed & are unremarkable except as noted in HPI and below Reports as per HPI and Reports no additional complaints GI Reports no additional complaints Reports no additional complaints Assessment & Plan Assessment & Plan (1) Hydrosalpinx: Code(s): N70.11 - Chronic salpingitis Category: Medical Plan: Discussed with the patient the finding on ultrasound, hydrosalpinx has resolved, the patient was reassured (2) Post-menopausal bleeding: Comment: Status post hysteroscopic polypectomy D and C Code(s): N95.0 - Postmenopausal bleeding Category: Medical Plan: Discussed with the patient the intraoperative finding results of the pathology of hysteroscopy/polypectomy/D and C. Discussed with the patient the sensitivity, specificity, positive and negative predictive value, of endometrial biopsy in detecting endometrial pathology including but not limited to endometrial hyperplasia, cancer and other pathology; instructed the patient to call in case vaginal bleeding recurs, the next step will be to proceed with further endometrial sampling evaluation to rule out endometrial pathology. All questions answered and the patient verbalized understanding and agreed with the plan. (3) Uterine myoma: Code(s): D25.9 - Leiomyoma of uterus, unspecified Category: Medical Plan: Discussed with the patient the findings on pelvic ultrasound & the risk of myosarcoma; in addition reviewed with the patient that malignancy and pre malignancy cannot be ruled out without hysterectomy for pathological evaluation ; furthermore, explained to the patient the limitation of pelvic ultrasound and endometrial biopsy in the setting. Discussed with the patient the options of treatment including expectant management versus hysterectomy; the pros and cons, risks benefits of each approach were discussed with the patient including the fact that in cases of myosarcoma, surgical treatment can lead to early diagnosis and positively affects the prognosis; after further discussion, the patient decided to proceed with expectant management. Will repeat pelvic ultrasound periodically. Instructions given to patient to call in case any of the following occurs: press ure symptoms, abnormal uterine bleeding, pelvic pain; and to schedule a twelve- months pelvic ultrasound (order placed) and a follow-up appointment . All questions answered, the patient verbalized understanding and agreed with the plan . Orders: Orders US pelvic and transvaginal Today D25.9 - Leiomyoma of uterus, unspecified Coding Level of Care Code Est Pt Level 3 (34982) Diagnoses Hydrosalpinx N70.11 Post-menopausal bleeding N95.0 Uterine myoma D25.9
--- OUTSIDE RECORDS SUMMARY | 2024-08-18 15:38 | XMS_ITS | Encounter Summary ---
Author Organization [employer] Address [address] [place] [address] [address] [place] [address] Care Team Providers Care Overseer Kosher Kitchen Name Role Phone Unavailable Primary Care Provider [...]
== END 2024-08-18 15:42 | disposition home or self-care (01) ==
LOC: HO.HWS 14:52
PROVIDERS: PCP Internal Medicine; Visit Provider Obstetrics & Gynecology
DX: N70.11 Chronic salpingitis (principal); N95.0 Postmenopausal bleeding; D25.9 Leiomyoma of uterus, unspecified
CPT/HCPCS: 99213

== ENCOUNTER → 2024-08-18 14:52 | Outpatient (BNVA) | payer MEDICARE, SELFPAY | PROVIDERS: PCP Internal Medicine; Visit Provider Obstetrics & Gynecology | DX: N70.11 Chronic salpingitis (principal); N95.0 Postmenopausal bleeding; D25.9 Leiomyoma of uterus, unspecified | CPT/HCPCS: 99212 ==

== ENCOUNTER 2024-09-02 16:13 | Emergency (ER) | payer MEDICARE, SELFPAY ==
--- NOTE | ~2024-09-02 | XR_ITS ---
CLINICAL HISTORY: fall, pain 3 view, chest and left ribs Comparison: None Findings: Nondisplaced acute lateral 10th and 11th rib fractures. Mild bibasilar atelectasis. Lace-like interstitial opacities can be seen with mild edema and chronic fibrosis. These are not further characterize without comparison. No definite pneumothorax or pleural effusion by radiographs. Mild cardiomegaly and tortuosity thoracic aorta. Degenerative changes include imaged shoulders and AC joints. Likely calcific tendinitis adjacent to right humerus. IMPRESSION: 1. Acute nondisplaced left lower rib fractures. 2. Mild atelectasis. This document has been electronically signed by: Davidson Bustamante MD on 09/02/2024 19:11:13
[2024-09-02 16:49] VITALS: BP 167/102; PULSE 73; RESP 20; TEMP 36.8; O2SAT 95; BMI 25.8
[2024-09-02 18:00] VITALS: BP 148/82; PULSE 88; RESP 15; TEMP 36.6; O2SAT 100
--- OUTSIDE RECORDS SUMMARY | 2024-09-02 18:49 | XMS_ITS | Encounter Summary ---
Author Organization [employer] [facility] Address [address] [place] [address] [address] [place] [address] Care Team Providers Care Senior Web Designer Name Role Phone Unavailable Primary Care Provider [...]
--- NOTE | 2024-09-02 18:57 | ED_ITS ---
HPI - Fall General Chief Complaint: Fall Stated Complaint: fell left side abd pain Time Seen by Provider: 09/02/24 18:02 Source: patient Mode of arrival: ambulatory Limitations: language barrier (Burkinan-speaking probation and parole officer utilized) History of Present Illness ED Provider: irena causey personal investment adviser HPI Narrative: Patient is a 60-year-old female who presents emergency department for evaluation. She reports 1 week ago she fell down approximately 6 stairs in her home landing onto her buttock and sliding down words. She presents emergency department today for the 1st evaluation after this fall reporting pain to the left posterior lower rib region that exacerbates with movement and deep respiration. Initial nursing triage states that she is experiencing right elbow pain this however is not the case she denies any pain to the right elbow but did report that she struck the right elbow and falling. She has full range of motion to the elbow. She states the fall was strictly mechanical in nature losing her footing, no head strike or loss of consciousness, no use of anticoagulants. She denies anterior chest pain, abdominal pain, nausea, vomiting or food intolerance. Related Data Previous Rx's ?Medication ?Instructions ?Recorded blood pressure monitor #1 ea 03/09/23 albuterol sulfate 90 mcg/actuation 2 puff inhalation Q6H PRN 02/06/24 aerosol inhaler shortness of breath or wheezing #8.5 grams calcium 500 mg (as 1 tab PO BID 90 days #180 tabs 06/24/24 carbonate)-vitamin D3 10 mcg (400 unit) tablet (Oyster Shell Calcium-Vitamin D3) losartan 100 mg tablet 100 mg PO DAILY 90 days #90 tabs 06/28/24 lidocaine 5 % topical patch 1 patch topical DAILY #30 ea 09/02/24 Allergies Allergy/AdvReac Type Severity Reaction Status Date / Time oxycodone [From PERCOCET] Allergy Intermediate DIFF Verified 09/02/24 16:51 BREATHING Review of Systems Review of Systems: Yes all other systems are reviewed and are negative PMFSH Past Medical History Attestation statement: The following information was validated with the patient. Source: old records reviewed Medical History Benítez esophagus HTN (hypertension) Excessive subcutaneous fat Dermatochalasis of eyelid Myositis Protrusion of lumbar intervertebral disc Dyslipidemia Hair loss GERD (gastroesophageal reflux disease) High cholesterol Surgical History History of rectal sphincterotomy (11/17/23) History of colonoscopy History of esophagogastroduodenoscopy History of removal of cyst History of surgery History of hemorrhoidectomy History of tubal ligation Family History Family History Father Diabetes Hypertension Mother Hypertension Diabetes Lung cancer Skin cancer Arthritis Paternal Aunt Stroke Social History Social History Household Members: None Housing: House Are you a primary director long term care to a significant other at home: No Do you presently have visiting nurse or other home services: No Alcohol intake: current Alcohol intake frequency: holidays/special occasions only Alcohol type: wine Patient Tobacco Use Status: Former Tobacco user Tobacco use type: Cigarette Smoked in Last 30 Days: No e-Cigarette/Vaping Use: Never Used Second Hand Smoke Exposure: No Use of substances other than those prescribed or required for medical reasons: No Advance Directives: Yes Advance Directives on File: Yes Advance Directives Date on File: 09/23/22 service: No Current occupational status: employed 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 No acute distress.?Normal affect. Eyes: Pupils equal, round and reactive to light.? ENT: Pharynx normal.?? Neck: Normal inspection.? Neck supple.?? CVS: Heart sounds normal. Normal heart rate and rhythm.? Pulses normal.?? Respiratory: No respiratory distress.? Lung sounds clear to auscultation bilaterally?. Tenderness upon palpation to the left lower posterior costal ribs without obvious deformity or crepitus. ? Abdomen: Soft and non-tender. Normoactive bowel sounds. No CVA tenderness. Skin: Skin warm and dry.? Normal skin color.? Extremities: No lower extremity edema.? No calf ttp? Neuro: Moves all extremities spontaneously. Sensation intact bilaterally. No focal neuro deficits. Ambulates with normal steady gait. Medical Decision Making Medical Decision Making MDM Narrative: Patient is a 68-year-old female with past medical history of hypertension, hypercholesterolemia, GERD, Benítez's esophagus presenting for evaluation of left posterior rib pain after a fall 1 week ago that exacerbates with movement and deep respiration. I do not appreciate any deformities on examination nor any crepitus. Lung sounds are clear bilaterally in the upper and lower lobes. Obtaining XR of the ribs/chest for further evaluation, concerning for rib fracture versus contusion, lower suspicion for pneumonia given her lack of respiratory/ill symptoms, no pertinent past medical history to suggest pain s econdary to pleural effusion. Declines analgesia at this time. Two nondisplaced rib fractures as per my interpretation below, reviewed conservative treatment, application of topical Lidoderm patches, use of incentive spirometer to maintain aeration of the lungs prevention of atelectasis/pneumonia. Given strict return precautions. Advised outpatient follow-up with PCP. All questions answered. No respiratory distress. Differential Diagnosis Differential Diagnoses: The differential diagnosis associated with the presentation includes (See narrative above) Independent Interpretation I performed an independent interpretation of an: Plain X-Ray (Tenth and 11th rib fracture on the left) Radiology Impression Discussion of test interpretation with radiology: I have reviewed the radiologist's reading. Radiologist Impression: 3 view, chest and left ribs Comparison: None Findings: Nondisplaced acute lateral 10th and 11th rib fractures. Mild bibasilar atelectasis. Lace-like interstitial opacities can be seen with mild edema and chronic fibrosis. These are not further characterize without comparison. No definite pneumothorax or pleural effusion by radiographs. Mild cardiomegaly and tortuosity thoracic aorta. Degenerative changes include imaged shoulders and AC joints. Likely calcific tendinitis adjacent to right humerus. IMPRESSION: 1. Acute nondisplaced left lower rib fractures. 2. Mild atelectasis. Independent Historian Clinical information obtained from an independent historian. History obtained from or confirmed by: Other (daughter) External Record Review External record reviewed: Outpatient record Prescription Management I considered prescription management with: Pain Medication Chronic Conditions Patient?s care impacted by: Other (See narrative above) Discharge Plan Discharge Clinical Impression: Closed rib fracture Patient Disposition: Home, Self-Care Instructions: How to Use an Incentive Spirometer (ED), Rib Fracture (ED) Additional Instructions: You were found to have 2 rib fractures on the left side the 10th and 11th rib likely from the fall 1 week ago. These can be very painful. These will heal on their own over time. Follow the instructions in regards to using the incentive spirometer to prevent collapsing of the lung and/or pneumonia You can take ibuprofen 200 mg, 3 tablets (600mg) every 6-8 hours as needed for pain, in addition to Tylenol 500 mg, 2 tablets (1,000mg) every 4-6 hours as needed for pain, but not to exceed 3 doses daily (3,000mg).? Apply Lidoderm patch to the area of pain, leave on for 12 hours and remove for 12 hours period To prevent skin irritation Please contact your primary care provider to arrange for a follow-up visit. Return to emergency department any new or worsening symptoms or concerns. Prescriptions: New lidocaine 5 % adhesive patch,medicated 1 patch topical DAILY Qty: 30 0RF Rx Instructions: leave on most painful area for up to 12 hrs No Action (DME) blood pressure monitor Kit See Rx Instructions .Route Qty: 1 0RF Rx Instructions: As directed losartan 100 mg tablet 100 mg PO DAILY 90 Days Qty: 90 1RF albuterol sulfate 90 mcg/actuation HFA aerosol inhaler 2 puff inhalation Q6H PRN (Reason: shortness of breath or wheezing) Qty: 8.5 0RF calcium carbonate-vitamin D3 [Oyster Shell Calcium-Vit D3] 500 mg-10 mcg (400 unit) tablet 1 tab PO BID 90 Days Qty: 180 1RF Referrals: Antonette Adam MD [Primary Care Provider] - Interventions: ED Discharge Assessment Last Done: 09/02/24 21:53 Discharge Date/Time: 09/02/24 21:53 Print Language: Burkinan
--- NOTE | 2024-09-02 20:11 | MHC.EDTECH ---
tech took over care at 1900. PT stating most pain in lower back, right knee and neck. PT states she is unable to ambulate and is non weight bearing. Pt is observed with 2 briefs and a purewick was placed at this time.
[2024-09-02 20:42] VITALS: BP 184/86; PULSE 54; RESP 16; TEMP 36.2; O2SAT 98
--- NOTE | 2024-09-02 21:37 | PC.NURSE ---
pt provided with incentive spirometer per INFANTRY OPERATIONS SPECIALIST Barcome
[2024-09-02 21:53] VITALS: BP 184/86; PULSE 54; RESP 16; TEMP 36.2; O2SAT 98
== END 2024-09-02 21:53 | disposition home or self-care (01) ==
PROVIDERS: Emergency Provider Emergency Medicine; PCP Internal Medicine
DX: S22.42XA Multiple fractures of ribs, left side, initial encounter for closed fracture (principal); X58.XXXA Exposure to other specified factors, initial encounter; W10.9XXA Fall (on) (from) unspecified stairs and steps, initial encounter; Z91.81 History of falling; Y93.9 Activity, unspecified; Y92.9 Unspecified place or not applicable; Y99.8 Other external cause status
CPT/HCPCS: 71101; 99283; 99284

== ENCOUNTER → 2024-09-02 18:32 | Outpatient (BNV) | payer MEDICARE, SELFPAY | PROVIDERS: Emergency Provider Emergency Medicine; PCP Internal Medicine; Visit Provider Radiology Neuroradiology | DX: S22.42XA Multiple fractures of ribs, left side, initial encounter for closed fracture (principal) | CPT/HCPCS: 71101 ==

== ENCOUNTER 2024-09-17 15:29 | Outpatient (AMB) | payer MEDICARE, SELFPAY ==
--- OUTSIDE RECORDS SUMMARY | 2024-09-17 15:33 | XMS_ITS | Encounter Summary ---
Author Organization [employer] Address [address] [place] [address] [address] [place] [address] Care Team Providers Care Voice Over Announcer Name Role Phone Unavailable Primary Care Provider [...]
--- NOTE | 2024-09-17 15:59 | A.OFFPC_ITS ---
Vital Signs 09/17/24 16:01 Height 4 ft 11 in Weight 126 lb 8 oz BMI 25.5 BP 158/80 H Blood Pressure Location Lt brachial Position Sitting Pulse 64 Pulse Source Pulse Oximeter Temp 97.3 F Temp Source Temporal Artery Scan Pulse Oximetry (%) 96 Oxygen Delivery Method Room Air Intake Visit Reasons: [facility] 09/02 fell left side abd pain Active Directory Systems Administrator Required: Yes Active Directory Systems Administrator Language: Citizen Of [place] Accompanied by: Self / Same As Patient Allergies oxycodone (From PERCOCET) Allergy (Intermediate, Verified 09/17/24 16:08) DIFF BREATHING Tobacco use date assessed: 06/24/24 Dental Screening Dental Screen Date: 06/24/24 HPI HPI Comments History of Present Illness Details 68 y/o Female patient who presents to [facility] today for EDF. Pt was admitted at [facility] on 09/02 for Evaluation and treatment of Acute Non-displaced two ribs Fracture - left lower posterior. Today denies pain but has some mild discomfort with movement. Denies SOB, wheezing or chest tightness. [facility] Medical History (Updated 09/17/24 @ 16:31 by Jenna Almaguer NP) Closed traumatic nondisplaced fracture of rib Benítez esophagus HTN (hypertension) Excessive subcutaneous fat Dermatochalasis of eyelid Myositis Protrusion of lumbar intervertebral disc Dyslipidemia Hair loss GERD (gastroesophageal reflux disease) High cholesterol Surgical History History of rectal sphincterotomy (11/17/23) History of colonoscopy History of esophagogastroduodenoscopy History of removal of cyst History of surgery History of hemorrhoidectomy History of tubal ligation Family History Father Diabetes Hypertension Mother Hypertension Diabetes Lung cancer Skin cancer Arthritis Paternal Aunt Stroke Social History Household Members: None Housing: House Are you a primary pharmacy customer care specialist to a significant other at home: No Do you presently have visiting nurse or other home services: No Alcohol intake: current Alcohol intake frequency: holidays/special occasions only Alcohol type: wine Patient Tobacco Use Status: Former Tobacco user Tobacco use type: Cigarette e-Cigarette/Vaping Use: Never Used Second Hand Smoke Exposure: No Advance Directives Date on File: 09/23/22 service: No Current occupational status: employed 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 Kostas Norris, Mana Garcia, Jeff Blanco and colleagues, with an educational solitario from [employer]. Review of Systems Const All systems reviewed & are unremarkable except as noted in HPI and below Physical exam (Primary Care) Vital Signs: Last Vital Signs Temp 97.3 F 09/17/24 16:01 Pulse 64 09/17/24 16:01 BP 158/80 H 09/17/24 16:01 Pulse Ox 96 09/17/24 16:01 Oxygen Delivery Method Room Air 09/17/24 16:01 BMI result Body Mass Index 25.5 Tobacco/Smoking Status: Tobacco use Status Tobacco use date assessed 06/24/24 09/17/24 16:06 Patient Tobacco Use Status Former Tobacco user 09/17/24 16:06 Tobacco use type Cigarette 09/17/24 16:06 e-Cigarette/Vaping Use Never Used 09/17/24 16:06 Thrive Assessment: Date of Thrive Assessment Date Thrive assessed 06/24/24 09/17/24 16:06 Const General: no acute distress Nutritional Appearance: overweight Orientation/consciousness: patient oriented x3 Chest Chest palpation & inspection: normal inspection of the chest, normal palpation of entire chest wall and tenderness rib (Left sided lower Ribs) Resp Effort & Inspection: normal respiratory effort and able to speak in complete sentences Auscultation: clear to auscultation bilaterally, no crackles, no rales, no rhonchi and no wheezes Cardio Heart sounds: S1 normal heart sound present and S2 normal heart sound present Neuro General: patient oriented x3 Coding Level of Care Code Est Pt Level 4 (91115) Diagnoses Closed traumatic nondisplaced fracture of rib S22.39XA Time Spent (min) 20 Assessment & Plan Assessment & Plan (1) Closed traumatic nondisplaced fracture of rib: Code(s): S22.39XA - Fracture of one rib, unspecified side, initial encounter for closed fracture Category: Medical Plan: Stable. Acetaminophen and NSAIDs for pain relief.
[2024-09-17 16:01] VITALS: BP 158/80; PULSE 64; TEMP 36.3; O2SAT 96; BMI 25.5
== END 2024-09-17 16:25 | disposition home or self-care (01) ==
LOC: HO.HMCH 15:30
PROVIDERS: PCP Internal Medicine; Visit Provider Nurse Practitioner Family
DX: S22.39XA Fracture of one rib, unspecified side, initial encounter for closed fracture (principal)

== ENCOUNTER → 2024-09-17 15:29 | Outpatient (BNVA) | payer MEDICARE, SELFPAY | PROVIDERS: PCP Internal Medicine; Visit Provider Nurse Practitioner Family | DX: S22.42XA Multiple fractures of ribs, left side, initial encounter for closed fracture (principal); W19.XXXA Unspecified fall, initial encounter; Y93.9 Activity, unspecified; Y92.9 Unspecified place or not applicable; Y99.9 Unspecified external cause status | CPT/HCPCS: 99212 ==

== ENCOUNTER 2024-11-18 15:05 | Outpatient (AMB) | payer MEDICARE, SELFPAY ==
--- NOTE | 2024-11-18 15:10 | A.OFFPC_ITS ---
Vital Signs 11/18/24 15:11 Height 4 ft 11 in Weight 126 lb 6 oz BMI 25.5 BP 150/72 H Blood Pressure Location Lt brachial Position Sitting Respiration 18 Pulse 60 Pulse Source Pulse Oximeter Temp 97.1 F Temp Source Temporal Artery Scan Pulse Oximetry (%) 97 Oxygen Delivery Method Room Air Intake Visit Reasons: lipids,bp Carbide Powder Processor Required: No Accompanied by: Self / Same As Patient Allergies oxycodone (From PERCOCET) Allergy (Intermediate, Verified 11/18/24 15:54) DIFF BREATHING Medication List - Last Reconciled 11/18/24 by Antonette Stanley MD blood pressure monitor As directed calcium carbonate-vitamin D3 500 mg-10 mcg (400 unit) (Oyster Shell Calcium- Vitamin D3) 1 tab PO BID 90 days lidocaine 5% 1 patch topical DAILY losartan 100 mg PO DAILY 90 days Tobacco use date assessed: 11/18/24 Fall risk assessment: 1 Fall in past year Last assessed Fall Risk: 11/18/24 Dental Screening Dental Screen Date: 11/18/24 Did you have a dental visit in the last 12 months?: No Did you have a dental problem in the last 6 months where you did not have access to dental care?: No Was dental information given to patient?: No HPI HPI Comments History of Present Illness Details The patient is a 68-year-old female presenting with neck pain and follow-up on rib fracture. The neck pain occurs during activities such as reading and sleeping, suggesting involvement during flexion and extension. The pain is significant enough to cause the patient to pause activities. Also complains of bilateral hip pain. The rib fracture occurred in August following a fall down the stairs. The fracture was nondisplaced and has been healing without intervention, though occasional pain persists. The patient has a history of essential hypertension, currently managed with losartan and an additional antihypertensive medication was discussed to better control blood pressure. The patient reports symptoms suggestive of allergic conjunctivitis, including itchy and red eyes, for which eye drops were recommended. Also has an occasional rash in the inguinal area due to Corinne intertrigo I knee statin will be prescribed. There is a concern for possible Helicobacter pylori infection due to past hi story and current gastrointestinal symptoms, including diarrhea. [facility] Medical History (Updated 11/18/24 @ 16:17 by Antonette Stanley MD) Closed traumatic nondisplaced fracture of rib Benítez esophagus HTN (hypertension) Excessive subcutaneous fat Dermatochalasis of eyelid Myositis Protrusion of lumbar intervertebral disc Dyslipidemia Hair loss GERD (gastroesophageal reflux disease) High cholesterol Surgical History History of rectal sphincterotomy (11/17/23) History of colonoscopy History of esophagogastroduodenoscopy History of removal of cyst History of surgery History of hemorrhoidectomy History of tubal ligation Family History Father Diabetes Hypertension Mother Hypertension Diabetes Lung cancer Skin cancer Arthritis Paternal Aunt Stroke Social History Household Members: None Housing: House Are you a primary customer care associate to a significant other at home: No Do you presently have visiting nurse or other home services: No Alcohol intake: current Alcohol intake frequency: holidays/special occasions only Alcohol type: wine Patient Tobacco Use Status: Former Tobacco user Tobacco use type: Cigarette e-Cigarette/Vaping Use: Never Used Second Hand Smoke Exposure: No Advance Directives Date on File: 09/23/22 service: No Current occupational status: employed 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 1. Little interest or pleasure in doing things: not at all 2. Feeling down, depressed, or hopeless: more than half the days 3. Trouble falling or staying asleep, or sleeping too much: several days 4. Feeling tired or having little energy: more than half the days 5. Poor appetite or overeating: not at all 6. Feeling bad about yourself - or that you are a failure or have let yourself or your family down: not at all 7. Trouble concentrating on things, such as reading the newspaper or watching television: not at all 8. Moving or speaking so slowly that other people could have noticed. Or the opposite - being so fidgety or restless that you have been moving around a lot more than usual: not at all 9. Thoughts that you would be better off or of hurting yourself in some way: not at all Total score: 5 Depression Screening Interpretation: Positive Depression Screening Follow-up: Existing condition and Follow-up Visit Requested Depression Screening Done: Yes 00109 - PHQ-9 Billing: Yes Source: Developed by Drs. Kostas Norris, Mana Garcia, Jeff Blanco and colleagues, with an educational solitario from [employer]. Thrive Questionnaire Date Thrive assessed: 11/18/24 I am a: Patient What is your living situation today?: I have a steady place to live Within the past 12 months, did the food you bought not last and you didn't have the money to get more?: Never true Within the past 12 months, did you worry whether your food would run out before you got money to buy more?: Never true Do you have trouble paying for medicines?: No Do you have trouble getting transportation to medical appointments?: No Do you have trouble paying your heating and electricity bill?: No Do you have trouble taking care of your child, family member or friend?: No Do you have trouble with day-to-day activities such as bathing, preparing meals, shopping, managing finances, etc.?: No Are you currently unemployed and looking for a job?: No Are you interested in more education?: No Please select the resources that you would like help with: None Currently or been in a relationship where the following occur: No concerns reported THRIVE Score: 0 AUDIT C Alcohol Use Questionnaire (AUDIT-C) 1. How often do you have a drink containing alcohol?: Never 3. How often do you have six or more drinks on one occasion?: Never Total Score: 0 Score Reviewed/Action Taken: No TAE-7 AMB Questionnaire TAE-7 Date TAE - 7 assessed: 11/18/24 Feeling nervous, anxious, or on edge: 3 = Nearly every day Not being able to stop or control worryin = Several days Worrying too much about different things: 3 = Nearly every day Trouble relaxin = Several days Being so restless that it is hard to sit still: 0 = Not at all Becoming easily annoyed or irritable: 1 = Several days Feeling afraid as if something awful might happen: 1 = Several days Total TAE-7 score (0-4 normal; 5-9 mild; 10-14 moderate; 15-21 severe): 10 Source: Developed by Drs. Kostas Norris, Mana Garcia, Jeff Blanco and colleagues, with an educational solitario from [employer]. TAE-7 Assessment Billing TAE-7 Assessment Tool: TAE-7 Assessment 24326 Review of Systems Const All systems reviewed & are unremarkable except as noted in HPI and below Card Denies chest pain at rest, Denies chest pain with activity, Denies edema, Denies irregular heart rhythm, Denies claudication, Denies dyspnea, Denies dyspnea on exertion, Denies orthopnea, Denies paroxysmal nocturnal dyspnea and Denies slow heart rate Resp Denies cough, Denies dyspnea and Denies dyspnea on exertion GI Denies abdominal pain, Denies change in bowel habits, Denies excessive flatus, Denies nausea and Denies vomiting Physical exam (Primary Care) Vital Signs: Last Vital Signs Temp 97.1 F 11/18/24 15:11 Pulse 60 11/18/24 15:11 Resp 18 11/18/24 15:11 BP 150/72 H 11/18/24 15:11 Pulse Ox 97 11/18/24 15:11 Oxygen Delivery Method Room Air 11/18/24 15:11 BMI result Body Mass Index 25.5 Tobacco/Smoking Status: Tobacco use Status Tobacco use date assessed 11/18/24 11/18/24 15:12 Patient Tobacco Use Status Former Tobacco user 11/18/24 15:12 Tobacco use type Cigarette 11/18/24 15:12 e-Cigarette/Vaping Use Never Used 11/18/24 15:12 PHQ-9: PHQ-9 Score PHQ-9: Total score 5 11/18/24 15:31 Depression Screening Interpretation: Positive Depression Screening Follow-up: Existing condition and Follow-up Visit Requested Thrive Assessment: Date of Thrive Assessment Date Thrive assessed 11/18/24 11/18/24 15:12 Currently or been in a relationship where the following occur: No concerns reported Resp Effort & Inspection: normal respiratory effort Auscultation: clear to auscultation bilaterally Cardio Jugular venous distension: no JVD Rate: regular rate Rhythm: regular rhythm Heart sounds: S1 normal heart sound present and S2 normal heart sound present Extrem General: Yes full ROM Coding Level of Care Code Est Pt Level 4 (56020) Complex EM visit Add On G2211 Diagnoses Essential hypertension I10 Allergic conjunctivitis H10.10 Closed traumatic nondisplaced fracture of rib S22.39XA Neck pain M54.2 Left hip pain M25.552 Right hip pain M25.551 Candidal intertrigo B37.2 Diarrhea R19.7 Additional Codes TAE-7 Assessment Billing - TAE-7 Assessment Tool: TAE-7 Assessment 25241 ([id number]) PHQ-9 - 57802 - PHQ-9 Billing: Yes ([id number]) Time Spent (min) 24 Assessment & Plan Assessment & Plan (1) Essential hypertension: Code(s): I10 - Essential (primary) hypertension Category: Medical (2) Allergic conjunctivitis: Code(s): H10.10 - Acute atopic conjunctivitis, unspecified eye Category: Medical (3) Closed traumatic nondisplaced fracture of rib: Code(s): S22.39XA - Fracture of one rib, unspecified side, initial encounter for closed fracture Category: Medical (4) Neck pain: Code(s): M54.2 - Cervicalgia Category: Medical (5) Left hip pain: Code(s): M25.552 - Pain in left hip Category: Medical (6) Right hip pain: Code(s): M25.551 - Pain in right hip Category: Medical (7) Candidal intertrigo: Code(s): B37.2 - Candidiasis of skin and nail Category: Medical (8) Diarrhea: Code(s): R19.7 - Diarrhea, unspecified Category: Medical Plan Plan Patient was informed and verbally consented to the use of an ambient scribe for clinic note documentation during this visit. 1. Essential (primary) hypertension I10 The patient is currently on losartan 100 mg for hypertension management. An additional antihypertensive medication was discussed to improve blood pressure control, with follow-up in three weeks to reassess blood pressure levels. 2. Cervicalgia M54.2 The patient experiences neck pain during flexion and extension, impacting daily activities. A cervical spine X-ray was planned to evaluate the cause of the pain. 3. Fracture of one rib, unspecified side, initial encounter for closed fracture S22.39XA The patient sustained a nondisplaced rib fracture in August after a fall. The fracture is healing naturally, but occasional pain persists. 4. Acute atopic conjunctivitis, bilateral H10.13 The patient reports symptoms of allergic conjunctivitis, including itchy and red eyes. Eye drops were recommended for symptom relief. 5. Diarrhea, unspecified R19.7 The patient has a history of Helicobacter pylori infection and reports gastrointestinal symptoms, including diarrhea. A test for Helicobacter pylori was considered to confirm the infection. Orders: Orders XR hip RT min 2V Today M25.551 - Pain in right hip Lipid Panel 4 Months E78.5 - Hyperlipidemia, unspecified Vitamin D 25-OH Total 4 Months E55.9 - Vitamin D deficiency, unspecified Comprehensive [place]. Panel Fast 4 Months I10 - Essential (primary) hypertension XR cervical spine 2V Today M54.2 - Cervicalgia XR hip LT min 2V Today M25.552 - Pain in left hip H pylori Ag Stool Today R19.7 - Diarrhea, unspecified XR ribs LT 2V Today S22.39XA - Fracture of one rib, unspecified side, initial e ncounter for closed fracture Medications: New amlodipine 2.5 mg PO DAILY 90 tabs 1RF 90 days olopatadine 0.2% (Pataday Once Daily Relief) 1 drp ophthalmic (eye) BEDTIME 2.5 mL 0RF 30 days H10.10 - Acute atopic conjunctivitis, unspecified eye nystatin 1 appl topical DAILY 15 grams 0RF 2 weeks B37.2 - Candidiasis of skin and nail
[2024-11-18 15:11] VITALS: BP 150/72; PULSE 60; RESP 18; TEMP 36.2; O2SAT 97; BMI 25.5
--- OUTSIDE RECORDS SUMMARY | 2024-11-18 15:46 | XMS_ITS | Encounter Summary ---
Author Organization [employer] Address [address] [place] [address] 7 [place] [address] Care Team Providers Care Airline Operations Agent Name Role Phone Unavailable Primary Care Provider Unavailabl e Encounter Details Date Type Department Care Team (Latest Contact Info) Description 05/05/2019 Abstract [facility]HC CONVERSIONS Dental, Provider, DDS Social [...]
--- OUTSIDE RECORDS SUMMARY | 2024-11-18 15:46 | XMS_ITS | Encounter Summary ---
Author Organization [employer] Address [address] [place] [address] [address] [place] [address] Care Team Providers Care Mechanical Technologist Name Role Phone Unavailable Primary Care Provider [...]
--- OUTSIDE RECORDS SUMMARY | 2024-11-18 15:46 | XMS_ITS | Clinical Summary ---
Author Organization [facility] Address [address] [place] [phone] Phone Care Team Providers Care Motor Block Mechanic Name Role Phone Antonette Adam MD Primary Care Provid er Social History Tobacco Use Types Packs/Day Years Used Date Smoking Tobacco: Never Assessed Comments Unknown Sex and Gender Information Value Date Recorded Sex Assigned at Not on file Legal Sex Female 3:22 PM EST Gender Identity Not on file Sexual Orientation Not on file Plan of Treatment Not on file Medical Devices Not on file Insurance [facility] NON NSPG PCP SILVER CLARITY [employer] NON NSPG PCP SILVER CL[employer]ITY [employer]CARE [employer] NON NSPG PCP SILVER CLARITY CONNECTORCARE [employer] NON NSPG PCP SILVER CLARITY CONNECTORCARE [employer] NON NSPG PCP SILVER CLARITY CONNECTORCARE [employer]LL[employer] NON NSPG PCP SILVER CLARITY CONNECTORCARE [employer] NON NSPG PCP SILVER CLARITY CONNECTORCARE [employer] NON NSPG PCP SILVER CLARITY CONNECTORCARE [employer] NON NSPG PCP MARLYN [facility] [place] [id number] Care Teams Motor Block Mechanic Relationship Specialty Start Date End Date Antonette Adam MD [address] [place] [address] PCP - General Internal Medicine 03/09/21 Additional Source Comments The information contained in this document represents components of the legal health record. It is not the complete legal health record.[facility]
--- OUTSIDE RECORDS SUMMARY | 2024-11-18 15:46 | XMS_ITS | Clinical Summary ---
Author Organization [employer] Address [address] [place] [address] [address] [place] [address] Care Team Providers Care Financial Management Analyst Name Role Phone Unavailable Primary Care Provider [...] season) 2023 10/02/2020, 09/11/2020 Influenza Vaccine (#1) 2024 2, 12/27/2010 RSV Patients and Patients Aged [...] patient's age to complete this topic Meningococcal B Vaccine Aged Out No l onger eligible based on patient's age to complete [...]
== END 2024-11-18 16:11 | disposition home or self-care (01) ==
LOC: HO.HMCH 15:06
PROVIDERS: PCP Internal Medicine; Visit Provider Internal Medicine
DX: I10 Essential (primary) hypertension (principal); H10.10 Acute atopic conjunctivitis, unspecified eye; S22.39XA Fracture of one rib, unspecified side, initial encounter for closed fracture; M54.2 Cervicalgia; M25.552 Pain in left hip; M25.551 Pain in right hip; B37.2 Candidiasis of skin and nail; R19.7 Diarrhea, unspecified

== ENCOUNTER → 2024-11-18 15:05 | Outpatient (BNVA) | payer MEDICARE, SELFPAY | PROVIDERS: PCP Internal Medicine; Visit Provider Internal Medicine | DX: I10 Essential (primary) hypertension (principal); H10.10 Acute atopic conjunctivitis, unspecified eye; M54.2 Cervicalgia; M25.552 Pain in left hip; M25.551 Pain in right hip; B37.2 Candidiasis of skin and nail; R19.7 Diarrhea, unspecified; Y93.9 Activity, unspecified; Y92.9 Unspecified place or not applicable; Y99.9 Unspecified external cause status; H10.13 Acute atopic conjunctivitis, bilateral; S22.39XA Fracture of one rib, unspecified side, initial encounter for closed fracture; X58.XXXA Exposure to other specified factors, initial encounter; Z79.899 Other long term (current) drug therapy | CPT/HCPCS: 96127; 99212 ==

== ENCOUNTER 2024-11-30 15:30 | Outpatient (REF) | payer MEDICARE, SELFPAY ==
--- NOTE | ~2024-11-30 | XR_ITS ---
EXAMINATION: XR BILATERAL HIPS WITH AP PELVIS CLINICAL INFORMATION: M25.552 - Pain in left hip COMPARISON: None available. TECHNIQUE: AP and frog-leg lateral views of each hip and an AP view of the pelvis. FINDINGS: The pelvis demonstrates central calcifications somewhat lucent centers consistent with phleboliths. SI joints symmetric without degenerative changes. Pubic symphysis joint is unremarkable. Calcifications inferior to the left shoulder tuberosity are likely enthesophytes. Right hip joint space is preserved. Minute femoral head marginal osteophyte is present. No other abnormalities seen. Left hip joint spaces preserved. No osteophytes are evident. Faint calcific density projects along superior medial aspect of the greater trochanter. XR/XR hips JACOB min 3V IMPRESSION: Suspected gluteal calcific tendinitis on the left. Unremarkable right hip. Electronically signed by: Christofer Rodriguez MD 11/30/2024 04:36 PM EDT
--- NOTE | ~2024-11-30 | XR_ITS ---
EXAMINATION: XR CERVICAL SPINE CLINICAL INFORMATION: M54.2 - Cervicalgia COMPARISON: None available. TECHNIQUE: 3 views of the cervical spine were obtained. FINDINGS: There is no prevertebral soft tissue edema. There is straightening of cervical lordosis in the upper cervical spine. There is moderate disc space narrowing at C4-5 and small endplate osteophytes. C5-6 demonstrates mild to moderate disc space narrowing, minimal retrolisthesis, small endplate osteophytes and sclerosis. XR/XR cervical spine 2V IMPRESSION: Moderate degenerative disc disease at C4-5 and C5-6. Electronically signed by: Christofer Rodriguez MD 11/30/2024 04:38 PM EDT
--- NOTE | ~2024-11-30 | XR_ITS ---
EXAMINATION: XR RIBS, LEFT CLINICAL INFORMATION: S22.39XA - Fracture of one rib, unspecified side, initial encounter for ... COMPARISON: September 02, 2024 TECHNIQUE: 3 views of the left ribs were obtained. FINDINGS: Smooth teardrop shaped calcific density projects adjacent to the right greater tuberosity. There is eventration of the left hemidiaphragm. Lungs are clear. There are chronic coarse lung markings. Heart size is within normal limits. BB marker is situated in the region of the left 11th and 12th ribs. No lucency, cortical step-off, or obvious deformity. XR/XR ribs LT min 3V w CXR1V IMPRESSION: Unremarkable examination. Electronically signed by: Christofer Rodriguez MD 11/30/2024 04:45 PM EDT
--- OUTSIDE RECORDS SUMMARY | 2024-11-30 17:41 | XMS_ITS | Clinical Summary ---
Author Organization [employer] Address [address] [place] [address] [address] [place] [address] Care Team Providers Care Customer Solutions Representative Name Role Phone Unavailable Primary Care Provider [...] PCV) 12/03/2015 12/02/2014 COVID-19 Vaccine (3 - 2024-2 6 season) 2024 10/02/2020, 09/11/2020 Influenza Vaccine (#1) 2024 2, [...]
--- OUTSIDE RECORDS SUMMARY | 2024-11-30 17:41 | XMS_ITS | Clinical Summary ---
Author Organization [facility] Address [address] [place] [address] Phone Care Team Providers Care Aerosol Supervisor Name Role Phone Antonette Adam MD Primary [...] file Medical Devices Not on file Insurance [facility] NON NSPG PCP SILVER CLARITY CONNE[employer] NON NSPG PCP SILVER CLARITY CONNECTORCARE [employer] NON NSPG PCP SILVER CLARITY CONNECTORCARE WELLSENSE NON NSPG PCP SILVER CLARITY CONNECTORCARE WELLSENSE NON NSPG PCP SILVER CLARITY CONNECTORCARE WELLSENSE NON NSPG PCP SILVER CLARITY CONNECTORCARE WELLSENSE NON NSPG PCP SILVER CLARITY CONNECTORCARE WELLSENSE NON NSPG PCP SILVER CLARITY CONNECTORCARE WE[employer]SENSE NON NSPG PCP MARLYN JOHNSON [facility] [place] [id number] Care Teams Aerosol Supervisor Relationship Specialty Start Date End Date Antonette Adam MD [address] [place] [address] PCP - General Internal Medicine 03/09/21 Additional Source Comments The information contained in this document represents components of the legal health record. It is not the complete legal health record.[facility]
--- OUTSIDE RECORDS SUMMARY | 2024-11-30 17:41 | XMS_ITS | Encounter Summary ---
Author Organization [employer] Address [address] [place] [address] [address] [place] [address] Care Team Providers Care Rail Maintenance Worker Name Role Phone Unavailable Primary Care Provider [...]
--- OUTSIDE RECORDS SUMMARY | 2024-11-30 17:42 | XMS_ITS | Encounter Summary ---
Author Organization [employer] Address [address] [place] [address] [address] [place] [address] Care Team Providers Care Bench Mechanic Name Role Phone Unavailable Primary Care Provider [...]
== END 2024-11-30 15:31 | disposition home or self-care (01) ==
LOC: HO.XRAY 15:30
PROVIDERS: PCP Internal Medicine; Visit Provider Internal Medicine
DX: M25.551 Pain in right hip (principal); M54.2 Cervicalgia; M25.552 Pain in left hip; S22.39XD Fracture of one rib, unspecified side, subsequent encounter for fracture with routine healing
CPT/HCPCS: 71101; 72040; 73522

== ENCOUNTER → 2024-11-30 15:39 | Outpatient (BNV) | payer MEDICARE, SELFPAY | PROVIDERS: PCP Internal Medicine; Visit Provider Radiology Diagnostic Radiology | DX: M25.552 Pain in left hip (principal); S22.42XD Multiple fractures of ribs, left side, subsequent encounter for fracture with routine healing; M50.321 Other cervical disc degeneration at C4-C5 level | CPT/HCPCS: 71101; 72040; 73522 ==

== ENCOUNTER → 2024-12-03 14:16 | Outpatient (BNVA) | payer MEDICARE, SELFPAY | PROVIDERS: PCP Internal Medicine | DX: I10 Essential (primary) hypertension (principal) | CPT/HCPCS: 99211 ==